=== PATIENT | male | born 1945 | race African-American/Black ===

== ENCOUNTER 2016-12-10 11:01 | Inpatient (IN) | payer OTHER ==
[2016-12-10 11:07] VITALS: BMI 30.2
--- NOTE | 2016-12-10 11:28 | PDOC ---
History of Present Illness - General History Source: Patient Exam Limitations: No Limitations - History of Present Illness Initial Comments: 12/10/16 13:13 The patient is a 71 year old male, with significant past medical history of COPD , asthma, CAD s/p 2 stents, diabetes mellitus, HTN, HLD, and gout who presents to the emergency department today complaining of 2 days of right sided chest pain, shortness of breath, productive cough with white sputum, generalized weakness. and chills. Reports he does not remember what he was doing when the CP started but that it's worse with exertion and he has it at rest. He explains that he came to the hospital to get an Xray, but was so short of breath that he was told to come to the ED. The patient notes that he was supposed to get a cardiac stress test a couple of months ago, but had trouble with his insurance. Denies fever, nausea, vomiting. Denies abdominal pain. Denies leg swelling. No recent travel/sick contact. Allergies: oxycodone Social hx: Electronic cigarette use PCP: Dr. 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: 12/10/16 13:36 <Brandee Taylor - Last Filed: 12/10/16 14:59> <Liz Hernandez - Last Filed: 12/10/16 16:38> - General Chief Complaint: Shortness of Breath Stated Complaint: Shortness of Breath Time Seen by Provider: 12/10/16 11:28 Past History <Brandee Taylor - Last Filed: 12/10/16 14:59> - Past Medical History Anemia: No Asthma: Yes Cancer: No Cardiac Disorders: Yes (cardiac 2 stents) CVA: No COPD: Yes CHF: No Dementia: No Diabetes: Yes GI Disorders: No Disorders: No HTN: Yes Hypercholesterolemia: Yes Liver Disease: No Seizures: No Thyroid Disease: No - Surgical History Abdominal Surgery: Yes (196-glass shard in abd removed and had abd infection afterward) Appendectomy: No Cardiac Surgery: Yes (CARDIAC STENTS 04/2010) Cholecystectomy: No Lung Surgery: No Neurologic Surgery: No Orthopedic Surgery: No - Immunization History Immunization Up to Date: Yes - Suicide/Smoking/Psychosocial Hx Smoking Status: No Smoking History: Former smoker Years of Tobacco Use: 35 Have you smoked in the past 12 months: No Number of Cigarettes Smoked Daily: 0 If you are a former smoker, when did you quit?: 1 Cigars Per Day: 0 Information on smoking cessation initiated: Yes 'Breaking Loose' booklet given: 12/10/16 Hx Alcohol Use: No Drug/Substance Use Hx: No Substance Use Type: None Hx Substance Use Treatment: No <Nassef,Yomna - Last Filed: 12/10/16 16:38> - Past Medical History Allergies/Adverse Reactions: Allergies Allergy/AdvReac Type Severity Reaction Status Date / Time oxycodone AdvReac Intermediate Verified 12/10/16 11:07 Home Medications: Ambulatory Orders Aspirin [ASA -] 81 mg PO DAILY #60 tab.chew 07/19/14 Albuterol 2.5/Ipratropium 0.5 [Duoneb -] 1 neb IH QID PRN #50 vial.neb. Albuterol Sulfate Inhaler - [Ventolin HFA Inhaler -] 2 inh IH Q4H #1 inh Atorvastatin Ca [Lipitor] 40 mg PO HS #30 tablet 07/26/15 Budesonide/Formeterol Fumarate [SYMBICORT 160/4.5mcg -] 2 inh IH BID #1 inhaler 07/26/15 Ranitidine [Zantac -] 150 mg PO DAILY #30 tablet 07/26/15 Glipizide [Glucotrol -] 5 mg PO TIDAC #90 tablet 12/26/15 Metformin HCl [Glucophage -] 1,000 mg PO BID@0700,1630 #60 tablet 12/26/15 Albuterol 0.083% Nebulizer Clare [Ventolin 0.083% Nebulizer Soln -] 1 neb NEB Q4H PRN 02/19/16 Clopidogrel Bisulfate [Plavix -] 75 mg PO DAILY #30 tablet 02/20/16 Metoprolol Succinate [Toprol XL -] 50 mg PO HS 02/20/16 Nifedipine ER [Procardia XL -] 60 mg PO HS 02/20/16 Valsartan [Diovan] 80 mg PO HS 02/20/16 Guaifenesin/D-Methorphan Hb [Diabetic Tussin Dm -] 10 ml PO Q4H PRN #0 ml Sennosides [Senna -] 1 tab PO HS tablet 05/21/16 Tiotropium [place] [Spiriva] 1 puff IH DAILY inh 05/21/16 Review of Systems - Review of Systems Able to Perform ROS?: Yes Comments:: 12/10/16 13:13 GENERAL/CONSTITUTIONAL: No fever +chills. +weakness. HEAD, EYES, EARS, NOSE AND THROAT: No change in vision. No ear pain or discharge. No sore throat. GASTROINTESTINAL: No nausea, vomiting, diarrhea or constipation. GENITOURINARY: No dysuria, frequency, or change in urination. CARDIOVASCULAR: +right sided chest pain, Shortness of breath. RESPIRATORY: +productive cough.No wheezing, or hemoptysis. MUSCULOSKELETAL: No joint or muscle swelling or pain. No neck or back pain. SKIN: No rash NEUROLOGIC: No headache, vertigo, loss of consciousness, or change in strength/ sensation. ENDOCRINE: No increased thirst. No abnormal weight change. HEMATOLOGIC/LYMPHATIC: No anemia, easy bleeding, or history of blood clots. ALLERGIC/IMMUNOLOGIC: No hives or skin allergy. <Brandee Taylor - Last Filed: 12/10/16 14:59> *Physical Exam - Vital Signs Last Vital Signs Temp Pulse Resp BP Pulse Ox 97.7 F 75 19 137/76 98 12/10/16 11:03 12/10/16 11:03 12/10/16 11:03 12/10/16 11:03 12/10/16 11:32 - Physical Exam Comments: 12/10/16 13:13 GENERAL: Awake, alert, and fully oriented, in no acute distress HEAD: No signs of trauma EYES: PERRLA, EOMI, sclera anicteric, conjunctiva clear ENT: Auricles normal inspection, hearing grossly normal, nares patent, oropharynx clear without exudates. Moist mucosa NECK: Normal ROM, supple, no lymphadenopathy, JVD, or masses LUNGS: Breath sounds equal, clear to auscultation bilaterally. mild left sided wheezes, no crackles HEART: Regular rate and rhythm, normal S1 and S2, no murmurs, rubs or gallops ABDOMEN: Soft, nontender, normoactive bowel sounds. No guarding, no rebound. No masses EXTREMITIES: Normal range of motion, no edema. No clubbing or cyanosis. No cords, erythema, or tenderness BACK: No midline spinal tenderness in cervical/thoracic/lumbar region NEUROLOGICAL: Normal speech, cranial nerves intact, negative pronator drift, 5/ 5 strength in all 4 extremities, normal sensation to light touch in all 4 extremities, normal cerebellar exam, normal gait, normal reflexes and tone SKIN: Warm, Dry, normal turgor, no rashes or lesions noted. <Brandee Taylor - Last Filed: 12/10/16 14:59> - Vital Signs Last Vital Signs Temp Pulse Resp BP Pulse Ox 97.7 F 75 19 137/76 98 12/10/16 11:03 12/10/16 11:03 12/10/16 11:03 12/10/16 11:03 12/10/16 11:03 <Liz Hernandez - Last Filed: 12/10/16 16:38> Heart Score/ECG Review - History History: Highly suspicious - Electrocardiogram EKG: Non specific repolarization disturbance - Age Age: >/= 65 - Risk Factors Risk Factors Heart Score: Yes Hx Hypertension, Yes Positive family hx of cardiac disease Based on the list above the patient has:: 1-2 risk factors - Troponin Troponin: </= normal limit - Score Heart Score - Total: 6 #1 12/10/16 13:20 Twelve-lead EKG was performed and reviewed by me. NSR, rate 69, L axis deviation , TWI I, AVL, V4-V6, with sub-mm to 1mm ST depressions in V4-V5. Compared to EKG from 05/17/2016, TWI in V4-V6 and STD in V4-V5 are new. <Liz Hernandez - Last Filed: 12/10/16 16:38> ED Treatment Course - LABORATORY CBC & Chemistry Diagram: 12/10/16 12:05 12/10/16 12:05 - ADDITIONAL ORDERS Additional order review: Laboratory Results 12/10/16 12/10/16 12/10/16 12:05 12:05 12:05 Sodium 135 L Potassium 4.2 Chloride 100 Carbon Dioxide 24 D Anion Gap 11 BUN 12 D Creatinine 1.1 D Creat Clearance w eGFR > 60 Random Glucose 143 H Calcium 8.7 Magnesium 2.1 Total Bilirubin 0.7 AST 22 D ALT 31 D Alkaline Phosphatase 103 Troponin I < 0.02 B-Natriuretic Peptide 165.28 H Total Protein 8.2 Albumin 4.3 D 12/10/16 12:05 RBC 4.73 MCV 88.2 MCHC 33.4 RDW 14.2 MPV 7.7 Neutrophils % 57.7 Lymphocytes % 31.3 Monocytes % 7.5 Eosinophils % 2.7 D Basophils % 0.8 D - Medications Given in the ED: ED Medications Discontinued Medications Generic Name Dose Route Start Last Admin Trade Name Cristian PRN Reason Stop Dose Admin Ipratropium [place] 1 amp 12/10/16 11:53 12/10/16 12:21 Atrovent 0.02% Nebulizer - NEB 12/10/16 11:54 1 amp ONCE ONE Administration <Brandee Taylor - Last Filed: 12/10/16 14:59> - LABORATORY CBC & Chemistry Diagram: 12/10/16 12:05 12/10/16 12:05 <Liz Hernandez - Last Filed: 12/10/16 16:38> Medical Decision Making - Medical Decision Making 12/10/16 13:36 Dr. Rosado was called at the office @ 1:20pm and was connected right away. Dr. Abad was microblogged and called back at 1:21pm. Dr. Ramirez was paged @ 1:21pm. Dr. Rousseau is internet marketing consultant and in house as per legal secretary. She was paged overhead. Dr. Rousseau was paged at the office number at 2:00pm. Dr. Rousseau was called on her cell at 3:00pm and spoke with Dr. Hernandez. <Brandee Taylor - Last Filed: 12/10/16 14:59> - Medical Decision Making 12/10/16 12:27 73-year-old male history of CAD status post stents, COPD, hypertension presents with 2 days of generalized weakness, chest pain, shortness of breath and cough. Vitals are unremarkable. Exam with mild wheezing but otherwise unremarkable. EKG concerning for new T-wave inversions and ST depressions. Presentation concerning for ACS, will also consider COPD, CHF on the differential. -monitor -atrovent (will hold albuterol given EKG changes and very mild wheezing) -labs -CXR (f/u outpt read) -ASA 243 (pt took baby ASA this AM) -call Dr. Rosado 12/10/16 13:30 Labs including trop unremarkable. Pt's heart score is 5. I spoke with Dr. Rosado, will admit pt to Dr. Abad who accepts pt to tele obs. I placed a call to Dr. Ramirez, awaiting a call back. Case discussed in detail with admitting physician Dr. Abad including history, physical exam and ancillary studies. Admitting physician has assumed care for the patient, will follow all pending diagnostics and will complete the evaluation and treatment. 12/10/16 14:[address] Blackwell about the case, she will see the patient. <Liz Hernandez - Last Filed: 12/10/16 16:38> *DC/Admit/Observation/Transfer - Attestations Scribe Attestion: 12/10/16 13:14 Documentation prepared by MURALI Fitzpatrick, acting as medical assistant instructor for Liz Hernandez MD. <Brandee Taylor - Last Filed: 12/10/16 14:59> - Discharge Dispostion Admit: Yes - Attestations Physician Attestion: 12/10/16 13:27 I, Dr. Liz Hernandez MD, attest that this document has been prepared under my direction and personally reviewed by me in its entirety. I further attest, that it accurately reflects all work, treatment, procedures and medical decision -making performed by me. <Liz Hernandez - Last Filed: 12/10/16 16:38> Diagnosis at time of Disposition: Chest pain - Discharge Dispostion Condition at time of disposition: Stable - Referrals
[2016-12-10] MEDS ORDERED: methylPREDNISolone NA SUCC 125 MG/2 ML VIAL IVPB ONE (11:40)
[2016-12-10] MEDS ORDERED: ALBUTEROL SO4 2.5/IPRATROPIUM 0.5 INH SOL 3 ML VIAL.NEB. NEB SCH (11:45)
[2016-12-10] MEDS ORDERED: IPRATROPIUM BR 0.02% 0.5 MG/2.5 ML VIAL.NEB. NEB ONE ×2 (11:53→12:25)
[2016-12-10] MEDS ORDERED: ALBUTEROL SO4 0.083% IH SOL 2.5 MG/3 ML VIAL.NEB. NEB ONE (12:13)
[2016-12-10 12:39] LABS: BASOPHIL 0.8 % (0-2.0); EOSINOPHIL 2.7 % (0-4.5); MCH 29.5 pg (25.7-33.7); MCHC 33.4 g/dl (32.0-35.9); MEAN CELL VOLUME 88.2 fl (80-96); MEAN PLT VOLUME 7.7 fl (7.5-11.1); NEUTROPHILS 57.7 % (42.8-82.8); PLATELET COUNT 314 K/MM3 (134-434); RDW 14.2 % (11.9-15.9); WHITE BLOOD COUNT 9.6 K/mm3 (4.0-10.0)
--- NOTE | 2016-12-10 12:39 | EKG ---
Test Reason : Blood Pressure : / mmHG Vent. Rate : 069 BPM Atrial Rate : 069 BPM P-R Int : 174 ms QRS Dur : 108 ms QT Int : 418 ms P-R-T Axes : -28 -51 124 degrees QTc Int : 447 ms SINUS RHYTHM WITH PREMATURE ATRIAL COMPLEXES LEFT AXIS DEVIATION INCOMPLETE RIGHT BUNDLE BRANCH BLOCK ABNORMAL ECG WHEN COMPARED WITH ECG OF 17-MAY-2016 11:13, PREMATURE ATRIAL COMPLEXES ARE NOW PRESENT T WAVE INVERSION MORE EVIDENT IN LATERAL LEADS Confirmed by GILBERTO ODOM MD ([id number]) on 12/10/2016 12:39:14 PM Referred By: Confirmed By:GILBERTO ODOM MD
[2016-12-10 13:07] LABS: ALBUMIN 4.3 g/dl (3.4-5.0); ALK PHOS 103 U/L (45-117); ANION GAP 11 (8-16); BILIRUBIN,TOTAL 0.7 mg/dL (0.2-1.0); CALCIUM 8.7 mg/dL (8.5-10.1); CO2 24 mmol/L (21-32); CREATININE 1.1 mg/dL (0.7-1.3); GLUCOSE,RANDOM 143 mg/dL (74-106); MAGNESIUM 2.1 mg/dL (1.8-2.4); SGOT/AST 22 U/L (15-37); SGPT/ALT 31 U/L (12-78); TOT PROT 8.2 g/dl (6.4-8.2)
[2016-12-10 13:09] LABS: TROPONIN I < 0.02 ng/ml (0.00-0.05)
[2016-12-10] MEDS ORDERED: ASPIRIN 325 MG TABLET PO ONE (13:14)
[2016-12-10] MEDS ORDERED: ASPIRIN 81 MG CHEWABLE TABLETS ONE (13:49)
[2016-12-10] MEDS ORDERED: guaiFENesin/D-M SUGAR-FREE/ACLHOL-FREE 118 ML BOTTLE PO PRN (15:43)
[2016-12-10] MEDS ORDERED: ONDANSETRON 4 MG/2 ML VIAL IVPB PRN (15:44)
[2016-12-10] MEDS ORDERED: AZITHROMYCIN 250 MG TABLET PO ONE (15:49)
[2016-12-10] MEDS ORDERED: traMADol HCL 50 MG TABLET PO PRN (15:50)
--- NOTE | 2016-12-10 15:50 | HP ---
Admitting History and Physical - Primary Care Physician PCP: Evangelist Rosado - Admission Chief Complaint: I'm weak History of Present Illness: Mr Velez is a 71 year old gentleman who comes in with multiple complaints. I am unable to obtain an accurate history as patient is very hostile towards me during the history. He says he is feeling weak, has off and on fevers and chills , chest pain that feels like a marleni horse off and on for a year, shortness of breath that is worse, swelling in his legs, and back and neck pain. He lists the complaints and when attempting to obtain further details he says "get Ashlee here" and "I've been coming here for years, it's in the computer". History Source: Patient Limitations to Obtaining History: Uncooperative - Past Medical History Cardiovascular: Yes: CAD, Hyperlipdemia, Other (stent) Pulmonary: Yes: COPD Gastrointestinal: Yes: Constipation Musculoskeletal: Yes: Osteoarthritis Rheumatology: Yes: Gout ENT: Yes: Other (S/P parotid surgery) Endocrine: Yes: Diabetes Mellitus - Past Surgical History Past Surgical History: Yes: Stent - Smoking History Smoking history: Former smoker Have you smoked in the past 12 months: No Aproximately how many cigarettes per day: 0 If you are a former smoker, when did you quit?: 1 - Alcohol/Substance Use Hx Alcohol Use: No History of Substance Use: reports: None - Social History ADL: Independent History of Recent Travel: No Home Medications - Allergies Allergies/Adverse Reactions: Allergies Allergy/AdvReac Type Severity Reaction Status Date / Time oxycodone AdvReac Intermediate Verified 12/10/16 11:07 - Home Medications Home Medications: Ambulatory Orders Aspirin [ASA -] 81 mg PO DAILY #60 tab.chew 07/19/14 Albuterol 2.5/Ipratropium 0.5 [Duoneb -] 1 neb IH QID PRN #50 vial.neb. Albuterol Sulfate Inhaler - [Ventolin HFA Inhaler -] 2 inh IH Q4H #1 inh Atorvastatin Ca [Lipitor] 40 mg PO HS #30 tablet 07/26/15 Budesonide/Formeterol Fumarate [SYMBICORT 160/4.5mcg -] 2 inh IH BID #1 inhaler 07/26/15 Ranitidine [Zantac -] 150 mg PO DAILY #30 tablet 07/26/15 Glipizide [Glucotrol -] 5 mg PO TIDAC #90 tablet 12/26/15 Metformin HCl [Glucophage -] 1,000 mg PO BID@0700,1630 #60 tablet 12/26/15 Albuterol 0.083% Nebulizer Clare [Ventolin 0.083% Nebulizer Soln -] 1 neb NEB Q4H PRN 02/19/16 Clopidogrel Bisulfate [Plavix -] 75 mg PO DAILY #30 tablet 02/20/16 Metoprolol Succinate [Toprol XL -] 50 mg PO HS 02/20/16 Nifedipine ER [Procardia XL -] 60 mg PO HS 02/20/16 Valsartan [Diovan] 80 mg PO HS 02/20/16 Guaifenesin/D-Methorphan Hb [Diabetic Tussin Dm -] 10 ml PO Q4H PRN #0 ml Sennosides [Senna -] 1 tab PO HS tablet 05/21/16 Tiotropium [place] [Spiriva] 1 puff IH DAILY inh 05/21/16 Family Disease History - Family Disease History Family Disease History: Diabetes: Mother (Probable gout), Brother, Other: Father (Probable gout), Mother Review of Systems Unable to obtain ROS, reason: attempted, as per HPI Physical Examination Vital Signs: Vital Signs Temperature 36.4 C 12/10/16 14:12 Pulse Rate 62 12/10/16 14:12 Respiratory Rate 19 12/10/16 14:12 Blood Pressure 115/76 12/10/16 14:12 O2 Sat by Pulse Oximetry (%) 95 12/10/16 14:12 Constitutional: Yes: No Distress, Obese, Other (agitated) Eyes: Yes: Conjunctiva Clear, EOM Intact, PERRL HENT: Yes: Atraumatic, Normocephalic Cardiovascular: Yes: Regular Rate and Rhythm. No: Gallop, Murmur, Rub Respiratory: Yes: Regular, On Nasal O2, Wheezes. No: CTA Bilaterally, Rales, Rhonchi Gastrointestinal: Yes: Normal Bowel Sounds, Soft. No: Distention, Tenderness Extremities: Yes: WNL Edema: No Labs: Laboratory Results - last 24 hr 09/12/10/16 12/10/16 12:05 12:05 12:05 WBC 9.6 RBC 4.73 Hgb 13.9 D Hct 41.7 MCV 88.2 MCH 29.5 MCHC 33.4 RDW 14.2 Plt Count 314 MPV 7.7 Neutrophils % 57.7 Lymphocytes % 31.3 Monocytes % 7.5 Eosinophils % 2.7 D Basophils % 0.8 D Sodium 135 L Potassium 4.2 Chloride 100 Carbon Dioxide 24 D Anion Gap 11 BUN 12 D Creatinine 1.1 D Creat Clearance w eGFR > 60 Random Glucose 143 H Calcium 8.7 Magnesium Total Bilirubin 0.7 AST 22 D ALT 31 D Alkaline Phosphatase 103 Troponin I B-Natriuretic Peptide 165.28 H Total Protein 8.2 Albumin 4.3 D 12/10/16 12:05 WBC RBC Hgb Hct MCV MCH MCHC RDW Plt Count MPV Neutrophils % Lymphocytes % Monocytes % Eosinophils % Basophils % Sodium Potassium Chloride Carbon Dioxide Anion Gap BUN Creatinine Creat Clearance w eGFR Random Glucose Calcium Magnesium 2.1 Total Bilirubin AST ALT Alkaline Phosphatase Troponin I < 0.02 B-Natriuretic Peptide Total Protein Albumin Imaging - Results Chest X-ray: Image Reviewed EKG: Image Reviewed Problem List - Problems (1) Chest pain Assessment/Plan: -patient with chronic sporadic chest pain -describes it as a marleni horse, unable to obtain further description -unclear if this is the main complaint -will admit to telemetry observation -check cardiac enzymes x3, 1st set negative -cardiology consult -continue home regimen Code(s): R07.9 - CHEST PAIN, UNSPECIFIED (2) COPD exacerbation Assessment/Plan: -suspect patient has a COPD exacerbation, mild to moderate -will check ABG -place on prednisone -continue spiriva and symbicort -will await cardiac enzymes and cardiology evaluation -if felt not having ACS, start albuterol as well -azithromycin for COPD exacerbation Code(s): J44.1 - CHRONIC OBSTRUCTIVE PULMONARY DISEASE W (ACUTE) EXACERBATION (3) Coronary artery disease Assessment/Plan: -as above -continue home regimen Code(s): I25.10 - ATHSCL HEART DISEASE OF [place] CORONARY ARTERY W/O ANG PCTRS Qualifiers: Coronary Disease-Associated Artery/Lesion type: [place] artery [place] vs. transplanted heart: am[place] heart Associated angina: without angina Qualified Code(s): I25.10 - Atherosclerotic heart disease of [place] coronary artery without angina pectoris (4) Diabetes Assessment/Plan: -will increase with prednisone -continue home regimen -diabetic diet -FSBS and SSI Code(s): E11.9 - TYPE 2 DIABETES MELLITUS WITHOUT COMPLICATIONS Qualifiers: Diabetes mellitus type: type 2 Diabetes mellitus complication status: without complication Diabetes mellitus longterm insulin use: without longterm use Qualified Code(s): E11.9 - Type 2 diabetes mellitus without complications (5) Hyperlipidemia Assessment/Plan: -continue statin Code(s): E78.5 - HYPERLIPIDEMIA, UNSPECIFIED Qualifiers: Hyperlipidemia type: pure hypercholesterolemia (6) Hypertension Assessment/Plan: -continue diovan, toprol xl, and nifedipine Code(s): I10 - ESSENTIAL (PRIMARY) HYPERTENSION Qualifiers: Hypertension type: essential hypertension Qualified Code(s): I10 - Essential (primary) hypertension
--- NOTE | 2016-12-10 16:41 | CON.CARD ---
Cardiology Consult (text) - Consultation Consultation Note: CC: cp/sob 71 yo with h/o CAD s/p ANUM mid [id number] with residual d1/om1 disease, HTN, hyperlipidemia, COPD, Type 2 DM, parotid neoplasm s/p resection, posterior neck lipoma, c-spine stenosis, gout and DJD who presents with sob/weakness. patient states he is here because he needs to be hospitalized every 6 months to get take care of his breathing which will improve his weakness. He states he has not had any new sx's recently. has chronic ortiz associated with weakness when he has particular trouble breathing --> had episode yesterday. still feels sob and bilateral LE weakness. + chronic cough. denies orthopnea, PND or LE edema, palps, dizziness. denies fevers, chills, sweats, n/v/d, congestion, rashes, visual disturbances. pmhx/pshx: per hpi family hx: no cardiac history. social hx: former tobacco, still uses e-cigarettes, no etoh or illicits. ros: per hpi Ambulatory Orders Aspirin [ASA -] 81 mg PO DAILY #60 tab.chew 07/19/14 Albuterol 2.5/Ipratropium 0.5 [Duoneb -] 1 neb IH QID PRN #50 vial.neb. Albuterol Sulfate Inhaler - [Ventolin HFA Inhaler -] 2 inh IH Q4H #1 inh Atorvastatin Ca [Lipitor] 40 mg PO HS #30 tablet 07/26/15 Budesonide/Formeterol Fumarate [SYMBICORT 160/4.5mcg -] 2 inh IH BID #1 inhaler 07/26/15 Ranitidine [Zantac -] 150 mg PO DAILY #30 tablet 07/26/15 Glipizide [Glucotrol -] 5 mg PO TIDAC #90 tablet 12/26/15 Metformin HCl [Glucophage -] 1,000 mg PO BID@0700,1630 #60 tablet 12/26/15 Albuterol 0.083% Nebulizer Clare [Ventolin 0.083% Nebulizer Soln -] 1 neb NEB Q4H PRN 02/19/16 Clopidogrel Bisulfate [Plavix -] 75 mg PO DAILY #30 tablet 02/20/16 Metoprolol Succinate [Toprol XL -] 50 mg PO HS 02/20/16 Nifedipine ER [Procardia XL -] 60 mg PO HS 02/20/16 Valsartan [Diovan] 80 mg PO HS 02/20/16 Guaifenesin/D-Methorphan Hb [Diabetic Tussin Dm -] 10 ml PO Q4H PRN #0 ml Sennosides [Senna -] 1 tab PO HS tablet 05/21/16 Tiotropium [place] [Spiriva] 1 puff IH DAILY inh 05/21/16 Current Medications Acetaminophen (Tylenol -) 650 mg PO Q4H PRN PRN Reason: FEVER OR PAIN Aclidinium [place] (Tudorza -) 1 puff IH BID [facility] Aspirin (Asa -) 81 mg PO DAILY [facility] Atorvastatin Calcium (Lipitor -) 40 mg PO HS [facility] Azithromycin (Zithromax -) 250 mg PO DAILY [facility] Budesonide/Formoterol Fumarate (Symbicort 160/4.5mcg -) 2 puff IH BID [facility] Clopidogrel Bisulfate (Plavix -) 75 mg PO DAILY [facility] Glipizide (Glucotrol -) 5 mg PO TIDAC [facility] Guaifenesin (Diabetic Tussin Dm -) 10 ml PO Q4H PRN PRN Reason: COUGH Insulin Aspart (Novolog Vial Sliding Scale -) 0 vial SQ ACHS [facility] PRN Reason: Protocol Lactobacillus Acidophilus (Bacid -) 1 tab PO DAILY [facility] Metformin HCl (Glucophage -) 1,000 mg PO BID@0700,1630 [facility] Metoprolol Succinate (Toprol Xl -) 50 mg PO HS [facility] Nifedipine (Procardia Xl -) 60 mg PO HS [facility] Ondansetron HCl (Zofran Injection) 4 mg IVPB Q6H PRN PRN Reason: NAUSEA Prednisone (Deltasone -) 60 mg PO DAILY [facility] Ranitidine HCl (Zantac -) 150 mg PO DAILY [facility] Senna (Senna -) 1 tab PO HS [facility] Tramadol HCl (Ultram -) 50 mg PO Q8H PRN PRN Reason: PAIN Valsartan (Diovan -) 80 mg PO HS [facility] Vital Signs - 24 hr 12/10/16 12/10/16 12/10/16 11:03 11:22 11:32 Temperature 97.7 F Pulse Rate 75 Pulse Rate [ Left Radial] Respiratory 19 Rate Blood Pressure 137/76 Blood Pressure [Right Arm] O2 Sat by Pulse 98 98 98 Oximetry (%) 12/10/16 14:12 Temperature 97.6 F Pulse Rate Pulse Rate [ 62 Left Radial] Respiratory 19 Rate Blood Pressure Blood Pressure 115/76 [Right Arm] O2 Sat by Pulse 95 Oximetry (%) Intake & Output 12/08/16 12/09/16 12/10/16 12/11/16 07:59 07:59 07:59 07:59 Weight 236 lb nad, calm mild dyspnea diffuse wheezes, nl effort rrr nl s1, s2 2/6 murmur at sternal border + bs soft nt nd ext without e/c/c + dp/pt aaox3 no carotid bruits no jaundice, diaphoresis CBC, BMP 12/10/16 12:05 12/10/16 12:05 Laboratory Tests 05/17/16 12/10/16 12/10/16 12:00 12:05 12:05 Magnesium Total Bilirubin 0.7 AST 22 D ALT 31 D Alkaline Phosphatase 103 B-Natriuretic Peptide 188.54 H 165.28 H Troponin I Albumin 4.3 D 12/10/16 12:05 Magnesium 2.1 Total Bilirubin AST ALT Alkaline Phosphatase B-Natriuretic Peptide Troponin I < 0.02 Albumin ekg: sr with pac's. lad, anterolateral and lateral twi. lateral twi new. tele: sr pac's cxr: pending echo 2016: nl lv/rv. 1+ ar/mr. rvsp 40-50. 1+ ao dilation. 71 yo with h/o CAD s/p ANUM mid [id number] with residual d1/om1 disease, HTN, hyperlipidemia, COPD, Type 2 DM, parotid neoplasm s/p resection, posterior neck lipoma, c-spine stenosis, gout and DJD who presents with sob/weakness. cad/sob - first set of ce's negative. new twi in lateral leads. cont anisa - patient with h/o residual disease on cath. adenosine stress test once wheezing improved, vs. dobutamine stress. repeat echo. - mgm't of contribution from copd per pmd - con't asa, plavix, statin, ccb, bb, acei - no sig signs of volume overload. bnp without sig change from priors. htn - con't current regimen hl - con't statin + e-cig - cessation counseling
[2016-12-10] MEDS: INSULIN SLIDING SCALE (NOVOLOG) 1 VIAL SQ SCH ×2 (17:27→21:06)
[2016-12-10] MEDS: glipiZIDE 5 MG TABLET (FP) PO SCH (17:27)
[2016-12-10] MEDS: metFORMIN HCL 500 MG TABLET (FP) PO SCH (17:27)
[2016-12-10 21:01] LABS: CPK 185 IU/L (39-308); TROPONIN I < 0.02 ng/ml (0.00-0.05)
[2016-12-10] MEDS: ATORVASTATIN CA 40 MG TABLET (FP) PO SCH (21:05)
[2016-12-10] MEDS: VALSARTAN 80 MG TABLET (UD) PO SCH (21:05)
[2016-12-10] MEDS: SENNOSIDES 8.6MG TABLET (FP) PO SCH (21:05)
[2016-12-10] MEDS: NIFEdipine E.R 60 MG TABLET (UD) PO SCH (21:05)
[2016-12-10] MEDS: METOPROLOL SUCCINATE 50 MG TAB.SR.24H (FP) PO SCH (21:06)
[2016-12-10] MEDS: BUDESONIDE/FORMETEROL FUMARATE 160/4.5 mcg INHALER IH SCH (21:09)
[2016-12-11] MEDS: ACETAMINOPHEN 325 MG TABLET (FP) PO PRN ×2 (03:58→16:50)
[2016-12-11] MEDS: metFORMIN HCL 500 MG TABLET (FP) PO SCH ×2 (06:34→16:51)
[2016-12-11] MEDS: glipiZIDE 5 MG TABLET (FP) PO SCH ×3 (06:34→16:52)
[2016-12-11] MEDS: INSULIN SLIDING SCALE (NOVOLOG) 1 VIAL SQ SCH ×4 (06:34→22:04)
[2016-12-11 07:57] LABS: BASOPHIL 0.9 % (0-2.0); EOSINOPHIL 4.5 % (0-4.5); MCH 29.7 pg (25.7-33.7); MCHC 33.8 g/dl (32.0-35.9); MEAN CELL VOLUME 87.9 fl (80-96); MEAN PLT VOLUME 7.9 fl (7.5-11.1); NEUTROPHILS 51.8 % (42.8-82.8); PLATELET COUNT 284 K/MM3 (134-434); RDW 13.9 % (11.9-15.9)
[2016-12-11 08:27] LABS: ANION GAP 10 (8-16); CALCIUM 8.8 mg/dL (8.5-10.1); CO2 27 mmol/L (21-32); GLUCOSE,RANDOM 155 mg/dL (74-106); MAGNESIUM 1.8 mg/dL (1.8-2.4); PHOSPHOROUS 4.3 mg/dL (2.5-4.9)
[2016-12-11 08:30] LABS: CPK 147 IU/L (39-308); TROPONIN I < 0.02 ng/ml (0.00-0.05)
[2016-12-11] MEDS: ASPIRIN 81 MG CHEWABLE TABLETS PO SCH (09:20)
[2016-12-11] MEDS: CLOPIDOGREL BISULFATE 75 MG TABLET (FP) PO SCH (09:20)
[2016-12-11] MEDS: LACTOBACILLUS ACIDOPHILUS 1 EACH TAB (FP) PO SCH (09:20)
[2016-12-11] MEDS: predniSONE 20 MG TABLET (UD) PO SCH (09:20)
[2016-12-11] MEDS: ACLIDINIUM BROMIDE 400 MCG/INH AERO.POWD IH SCH ×2 (09:22→22:03)
[2016-12-11] MEDS: BUDESONIDE/FORMETEROL FUMARATE 160/4.5 mcg INHALER IH SCH ×2 (09:22→22:03)
[2016-12-11] MEDS: RANITIDINE HCL 150 MG TABLET (FP) PO SCH (09:23)
[2016-12-11] MEDS: AZITHROMYCIN 250 MG TABLET PO SCH (09:23)
[2016-12-11] MEDS ORDERED: ENOXAPARIN NA (PORCINE) 40 MG/0.4 ML DISP.SYRIN SQ SCH (10:00)
--- NOTE | 2016-12-11 11:47 | PN ---
Progress Note, Physician History of Present Illness: No events overnight breathing improving - Current Medication List Current Medications: Active Medications Acetaminophen (Tylenol -) 650 mg PO Q4H PRN PRN Reason: FEVER OR PAIN Last Admin: 12/11/16 03:58 Dose: 650 mg Aclidinium [place] (Tudorza -) 1 puff IH BID [facility] Last Admin: 12/11/16 09:22 Dose: 1 puff Aspirin (Asa -) 81 mg PO DAILY [facility] Last Admin: 12/11/16 09:20 Dose: 81 mg Atorvastatin Calcium (Lipitor -) 40 mg PO HS [facility] Last Admin: 12/10/16 21:05 Dose: 40 mg Azithromycin (Zithromax -) 250 mg PO DAILY [facility] Last Admin: 12/11/16 09:23 Dose: 250 mg Budesonide/Formoterol Fumarate (Symbicort 160/4.5mcg -) 2 puff IH BID [facility] Last Admin: 12/11/16 09:22 Dose: 2 puff Clopidogrel Bisulfate (Plavix -) 75 mg PO DAILY [facility] Last Admin: 12/11/16 09:20 Dose: 75 mg Glipizide (Glucotrol -) 5 mg PO TIDAC [facility] Last Admin: 12/11/16 06:34 Dose: 5 mg Guaifenesin (Diabetic Tussin Dm -) 10 ml PO Q4H PRN PRN Reason: COUGH Insulin Aspart (Novolog Vial Sliding Scale -) 0 vial SQ ACHS [facility] PRN Reason: Protocol Last Admin: 12/11/16 06:34 Dose: Not Given Lactobacillus Acidophilus (Bacid -) 1 tab PO DAILY [facility] Last Admin: 12/11/16 09:20 Dose: 1 tab Metformin HCl (Glucophage -) 1,000 mg PO BID@0700,1630 [facility] Last Admin: 12/11/16 06:34 Dose: 1,000 mg Metoprolol Succinate (Toprol Xl -) 50 mg PO HS [facility] Last Admin: 12/10/16 21:06 Dose: 50 mg Nifedipine (Procardia Xl -) 60 mg PO HS [facility] Last Admin: 12/10/16 21:05 Dose: 60 mg Ondansetron HCl (Zofran Injection) 4 mg IVPB Q6H PRN PRN Reason: NAUSEA Prednisone (Deltasone -) 60 mg PO DAILY [facility] Last Admin: 12/11/16 09:20 Dose: 60 mg Ranitidine HCl (Zantac -) 150 mg PO DAILY [facility] Last Admin: 12/11/16 09:23 Dose: 150 mg Senna (Senna -) 1 tab PO [facility] Last Admin: 12/10/16 21:05 Dose: 1 tab Tramadol HCl (Ultram -) 50 mg PO Q8H PRN PRN Reason: PAIN Valsartan (Diovan -) 80 mg PO [facility] Last Admin: 12/10/16 21:05 Dose: 80 mg - Objective Vital Signs: Vital Signs Temperature 98 F 12/10/16 15:44 Pulse Rate 64 12/11/16 07:45 Respiratory Rate 20 12/11/16 07:45 Blood Pressure 112/79 12/11/16 07:45 O2 Sat by Pulse Oximetry (%) 100 12/10/16 22:00 Constitutional: Yes: No Distress, Calm Eyes: Yes: Conjunctiva Clear HENT: Yes: WNL Neck: Yes: WNL Cardiovascular: Yes: WNL Respiratory: Yes: WNL, Regular Gastrointestinal: Yes: Normal Bowel Sounds Extremities: Yes: WNL Edema: No Labs: CBC, BMP 12/11/16 05:30 12/11/16 05:30 Assessment/Plan 71 yo with h/o CAD s/p ANUM mid [id number] with residual d1/om1 disease, HTN, hyperlipidemia, COPD, Type 2 DM, parotid neoplasm s/p resection, posterior neck lipoma, c-spine stenosis, gout and DJD who presents with sob/weakness. cad/sob - Cardiac enzymes negative x 2. new twi in lateral leads. - patient with h/o residual disease on cath. - Awaiting adenosine stress test once wheezing improved, vs. dobutamine stress. repeat echo. - mgm't of contribution from copd per pmd - con't asa, plavix, statin, ccb, bb, acei - no sig signs of volume overload. bnp without sig change from priors. htn - con't current regimen hl - con't statin
[2016-12-11] MEDS ORDERED: INSULIN (NOVOLOG) ASPART 100 UNITS/ML 10ML VIAL ONE (16:58)
--- NOTE | 2016-12-11 16:58 | PN ---
Progress Note, Physician History of Present Illness: pt states he thinks his copd is acting up chest pain is on R side on and off, more when he turns - Current Medication List Current Medications: Active Medications Acetaminophen (Tylenol -) 650 mg PO Q4H PRN PRN Reason: FEVER OR PAIN Last Admin: 12/11/16 16:50 Dose: 650 mg Aclidinium [place] (Tudorza -) 1 puff IH BID [facility] Last Admin: 12/11/16 09:22 Dose: 1 puff Aspirin (Asa -) 81 mg PO DAILY [facility] Last Admin: 12/11/16 09:20 Dose: 81 mg Atorvastatin Calcium (Lipitor -) 40 mg PO HS [facility] Last Admin: 12/10/16 21:05 Dose: 40 mg Azithromycin (Zithromax -) 250 mg PO DAILY [facility] Last Admin: 12/11/16 09:23 Dose: 250 mg Budesonide/Formoterol Fumarate (Symbicort 160/4.5mcg -) 2 puff IH BID [facility] Last Admin: 12/11/16 09:22 Dose: 2 puff Clopidogrel Bisulfate (Plavix -) 75 mg PO DAILY [facility] Last Admin: 12/11/16 09:20 Dose: 75 mg Glipizide (Glucotrol -) 5 mg PO TIDAC [facility] Last Admin: 12/11/16 16:52 Dose: 5 mg Guaifenesin (Diabetic Tussin Dm -) 10 ml PO Q4H PRN PRN Reason: COUGH Insulin Aspart (Novolog Vial Sliding Scale -) 0 vial SQ ACHS [facility] PRN Reason: Protocol Last Admin: 12/11/16 11:58 Dose: Not Given Lactobacillus Acidophilus (Bacid -) 1 tab PO DAILY [facility] Last Admin: 12/11/16 09:20 Dose: 1 tab Metformin HCl (Glucophage -) 1,000 mg PO BID@0700,1630 [facility] Last Admin: 12/11/16 16:51 Dose: 1,000 mg Metoprolol Succinate (Toprol Xl -) 50 mg PO [facility] Last Admin: 12/10/16 21:06 Dose: 50 mg Nifedipine (Procardia Xl -) 60 mg PO HS [facility] Last Admin: 12/10/16 21:05 Dose: 60 mg Ondansetron HCl (Zofran Injection) 4 mg IVPB Q6H PRN PRN Reason: NAUSEA Prednisone (Deltasone -) 60 mg PO DAILY [facility] Last Admin: 12/11/16 09:20 Dose: 60 mg Ranitidine HCl (Zantac -) 150 mg PO DAILY [facility] Last Admin: 12/11/16 09:23 Dose: 150 mg Senna (Senna -) 1 tab PO [facility] Last Admin: 12/10/16 21:05 Dose: 1 tab Tramadol HCl (Ultram -) 50 mg PO Q8H PRN PRN Reason: PAIN Valsartan (Diovan -) 80 mg PO [facility] Last Admin: 12/10/16 21:05 Dose: 80 mg - Objective Vital Signs: Vital Signs Temperature 97.8 F 12/11/16 14:00 Pulse Rate 60 12/11/16 14:00 Respiratory Rate 18 12/11/16 14:00 Blood Pressure 116/65 12/11/16 14:00 O2 Sat by Pulse Oximetry (%) 98 12/11/16 10:00 Constitutional: Yes: No Distress HENT: Yes: Atraumatic Neck: Yes: Supple Cardiovascular: Yes: Regular Rate and Rhythm Respiratory: Yes: Rhonchi, Wheezes Gastrointestinal: Yes: Normal Bowel Sounds Extremities: Yes: WNL Neurological: Yes: Alert, Oriented Labs: CBC, BMP 12/11/16 05:30 12/11/16 05:30 Problem List - Problems (1) Chest pain Assessment/Plan: troponins negative atypical chest pain Code(s): R07.9 - CHEST PAIN, UNSPECIFIED (2) COPD exacerbation Assessment/Plan: duo nebs pulmonary consult on po steroids Code(s): J44.1 - CHRONIC OBSTRUCTIVE PULMONARY DISEASE W (ACUTE) EXACERBATION (3) Coronary artery disease Assessment/Plan: on meds stable Code(s): I25.10 - ATHSCL HEART DISEASE OF [place] CORONARY ARTERY W/O ANG PCTRS Qualifiers: Coronary Disease-Associated Artery/Lesion type: [place] artery [place] vs. transplanted heart: [place] heart Associated angina: without angina Qualified Code(s): I25.10 - Atherosclerotic heart disease of [place] coronary artery without angina pectoris (4) Diabetes Assessment/Plan: insulin bgms po meds Code(s): E11.9 - TYPE 2 DIABETES MELLITUS WITHOUT COMPLICATIONS Qualifiers: Diabetes mellitus type: type 2 Diabetes mellitus complication status: without complication Diabetes mellitus mcfp insulin use: without mcfp use Qualified Code(s): E11.9 - Type 2 diabetes mellitus without complications (5) Hyperlipidemia Assessment/Plan: on lipitor Code(s): E78.5 - HYPERLIPIDEMIA, UNSPECIFIED Qualifiers: Hyperlipidemia type: pure hypercholesterolemia (6) Hypertension Assessment/Plan: on meds stable Code(s): I10 - ESSENTIAL (PRIMARY) HYPERTENSION Qualifiers: Hypertension type: essential hypertension Qualified Code(s): I10 - Essential (primary) hypertension (7) Status post coronary artery stent placement Code(s): Z95.5 - PRESENCE OF CORONARY ANGIOPLASTY IMPLANT AND GRAFT Assessment/Plan covering for dr mistry
[2016-12-11] MEDS ORDERED: ALBUTEROL SO4 2.5/IPRATROPIUM 0.5 INH SOL 3 ML VIAL.NEB. NEB PRN (16:59)
[2016-12-11] MEDS ORDERED: INSULIN (NOVOLOG MIX 70/30) 100 UNITS/ML MDV SQ ONE (17:00)
[2016-12-11] MEDS: ALBUTEROL SO4 0.083% IH SOL 2.5 MG/3 ML VIAL.NEB. NEB PRN (18:16)
[2016-12-11] MEDS: ATORVASTATIN CA 40 MG TABLET (FP) PO SCH (22:03)
[2016-12-11] MEDS: NIFEdipine E.R 60 MG TABLET (UD) PO SCH (22:03)
[2016-12-11] MEDS: METOPROLOL SUCCINATE 50 MG TAB.SR.24H (FP) PO SCH (22:03)
[2016-12-11] MEDS: VALSARTAN 80 MG TABLET (UD) PO SCH (22:03)
[2016-12-11] MEDS: SENNOSIDES 8.6MG TABLET (FP) PO SCH (22:04)
[2016-12-12] MEDS: INSULIN SLIDING SCALE (NOVOLOG) 1 VIAL SQ SCH ×4 (06:33→22:18)
[2016-12-12] MEDS: glipiZIDE 5 MG TABLET (FP) PO SCH ×3 (06:33→17:35)
[2016-12-12] MEDS: metFORMIN HCL 500 MG TABLET (FP) PO SCH ×2 (06:33→17:35)
[2016-12-12] MEDS: LACTOBACILLUS ACIDOPHILUS 1 EACH TAB (FP) PO SCH (09:47)
[2016-12-12] MEDS: ASPIRIN 81 MG CHEWABLE TABLETS PO SCH (09:47)
[2016-12-12] MEDS: predniSONE 20 MG TABLET (UD) PO SCH (09:47)
[2016-12-12] MEDS: CLOPIDOGREL BISULFATE 75 MG TABLET (FP) PO SCH (09:48)
[2016-12-12] MEDS: AZITHROMYCIN 250 MG TABLET PO SCH (09:48)
[2016-12-12] MEDS: RANITIDINE HCL 150 MG TABLET (FP) PO SCH (09:48)
[2016-12-12] MEDS: BUDESONIDE/FORMETEROL FUMARATE 160/4.5 mcg INHALER IH SCH ×2 (09:49→21:46)
[2016-12-12] MEDS: ACLIDINIUM BROMIDE 400 MCG/INH AERO.POWD IH SCH ×2 (09:49→21:46)
--- NOTE | 2016-12-12 13:38 | PN ---
Progress Note, Physician History of Present Illness: feeling better - Current Medication List Current Medications: Active Medications Acetaminophen (Tylenol -) 650 mg PO Q4H PRN PRN Reason: FEVER OR PAIN Last Admin: 12/11/16 16:50 Dose: 650 mg Aclidinium [place] (Tudorza -) 1 puff IH BID [facility] Last Admin: 12/12/16 09:49 Dose: 1 puff Albuterol Sulfate (Ventolin 0.083% Nebulizer Soln -) 1 amp NEB Q4H PRN PRN Reason: SHORTNESS OF BREATH Last Admin: 12/11/16 18:16 Dose: 1 amp Aspirin (Asa -) 81 mg PO DAILY [facility] Last Admin: 12/12/16 09:47 Dose: 81 mg Atorvastatin Calcium (Lipitor -) 40 mg PO HS [facility] Last Admin: 12/11/16 22:03 Dose: 40 mg Azithromycin (Zithromax -) 250 mg PO DAILY [facility] Last Admin: 12/12/16 09:48 Dose: 250 mg Budesonide/Formoterol Fumarate (Symbicort 160/4.5mcg -) 2 puff IH BID [facility] Last Admin: 12/12/16 09:49 Dose: 2 puff Clopidogrel Bisulfate (Plavix -) 75 mg PO DAILY [facility] Last Admin: 12/12/16 09:48 Dose: 75 mg Glipizide (Glucotrol -) 5 mg PO TIDAC [facility] Last Admin: 12/12/16 12:12 Dose: 5 mg Guaifenesin (Diabetic Tussin Dm -) 10 ml PO Q4H PRN PRN Reason: COUGH Insulin Aspart (Novolog Vial Sliding Scale -) 0 vial SQ ACHS [facility] PRN Reason: Protocol Last Admin: 12/12/16 12:11 Dose: Not Given Lactobacillus Acidophilus (Bacid -) 1 tab PO DAILY [facility] Last Admin: 12/12/16 09:47 Dose: 1 tab Metformin HCl (Glucophage -) 1,000 mg PO BID@0700,1630 [facility] Last Admin: 12/12/16 06:33 Dose: 1,000 mg Metoprolol Succinate (Toprol Xl -) 50 mg PO HS [facility] Last Admin: 12/11/16 22:03 Dose: 50 mg Nifedipine (Procardia Xl -) 60 mg PO HS [facility] Last Admin: 12/11/16 22:03 Dose: 60 mg Ondansetron HCl (Zofran Injection) 4 mg IVPB Q6H PRN PRN Reason: NAUSEA Prednisone (Deltasone -) 60 mg PO DAILY [facility] Last Admin: 12/12/16 09:47 Dose: 60 mg Ranitidine HCl (Zantac -) 150 mg PO DAILY [facility] Last Admin: 12/12/16 09:48 Dose: 150 mg Senna (Senna -) 1 tab PO HS [facility] Last Admin: 12/11/16 22:04 Dose: 1 tab Tramadol HCl (Ultram -) 50 mg PO Q8H PRN PRN Reason: PAIN Valsartan (Diovan -) 80 mg PO [facility] Last Admin: 12/11/16 22:03 Dose: 80 mg - Objective Vital Signs: Vital Signs Temperature 98.3 F 12/12/16 06:00 Pulse Rate 80 12/12/16 06:00 Respiratory Rate 20 12/12/16 06:00 Blood Pressure 141/78 12/12/16 06:00 O2 Sat by Pulse Oximetry (%) 98 12/12/16 02:00 Constitutional: Yes: No Distress HENT: Yes: Atraumatic Neck: Yes: Supple Cardiovascular: Yes: Regular Rate and Rhythm Respiratory: Yes: Rhonchi, Wheezes Gastrointestinal: Yes: Normal Bowel Sounds Extremities: Yes: WNL Neurological: Yes: Alert, Oriented Labs: CBC, BMP 12/11/16 05:30 12/11/16 05:30 Problem List - Problems (1) Chest pain Assessment/Plan: troponins negative atypical chest pain Code(s): R07.9 - CHEST PAIN, UNSPECIFIED (2) COPD exacerbation Assessment/Plan: duo larry pulmonary consult on po steroids Code(s): J44.1 - CHRONIC OBSTRUCTIVE PULMONARY DISEASE W (ACUTE) EXACERBATION (3) Coronary artery disease Assessment/Plan: on meds stable Code(s): I25.10 - ATHSCL HEART DISEASE OF [place] CORONARY ARTERY W/O ANG PCTRS Qualifiers: Coronary Disease-Associated Artery/Lesion type: [place] artery [place] vs. 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 control representative insulin use: without retirement use Qualified Code(s): E11.9 - Type 2 diabetes mellitus without complications; E11.9 - Type 2 diabetes mellitus without complications; E11.9 - Type 2 diabetes mellitus without complications; E11.9 - Type 2 diabetes mellitus without complications (5) Hyperlipidemia Assessment/Plan: on lipitor Code(s): E78.5 - HYPERLIPIDEMIA, UNSPECIFIED Qualifiers: Hyperlipidemia type: pure hypercholesterolemia (6) Hypertension Assessment/Plan: on meds stable Code(s): I10 - ESSENTIAL (PRIMARY) HYPERTENSION Qualifiers: Hypertension type: essential hypertension Qualified Code(s): I10 - Essential (primary) hypertension; I10 - Essential (primary) hypertension; I10 - Essential (primary) hypertension (7) Status post coronary artery stent placement Code(s): Z95.5 - PRESENCE OF CORONARY ANGIOPLASTY IMPLANT AND GRAFT Assessment/Plan covering for dr mistry
[2016-12-12] MEDS ORDERED: methylPREDNISolone NA SUCC 125 MG/2 ML VIAL IVPUSH SCH (15:30)
--- NOTE | 2016-12-12 15:55 | PN ---
Progress Note (short form) - Note Progress Note: CC: cp/sob S: sob persists. no cp, palps, dizziness. cards: luz Current Medications Acetaminophen (Tylenol -) 650 mg PO Q4H PRN PRN Reason: FEVER OR PAIN Last Admin: 12/11/16 16:50 Dose: 650 mg Aclidinium [place] (Tudorza -) 1 puff IH BID [facility] Last Admin: 12/12/16 09:49 Dose: 1 puff Albuterol Sulfate (Ventolin 0.083% Nebulizer Soln -) 1 amp NEB Q4H PRN PRN Reason: SHORTNESS OF BREATH Last Admin: 12/11/16 18:16 Dose: 1 amp Aspirin (Asa -) 81 mg PO DAILY [facility] Last Admin: 12/12/16 09:47 Dose: 81 mg Atorvastatin Calcium (Lipitor -) 40 mg PO HS [facility] Last Admin: 12/11/16 22:03 Dose: 40 mg Azithromycin (Zithromax -) 250 mg PO DAILY [facility] Last Admin: 12/12/16 09:48 Dose: 250 mg Budesonide/Formoterol Fumarate (Symbicort 160/4.5mcg -) 2 puff IH BID [facility] Last Admin: 12/12/16 09:49 Dose: 2 puff Clopidogrel Bisulfate (Plavix -) 75 mg PO DAILY [facility] Last Admin: 12/12/16 09:48 Dose: 75 mg Glipizide (Glucotrol -) 5 mg PO TIDAC [facility] Last Admin: 12/12/16 12:12 Dose: 5 mg Guaifenesin (Diabetic Tussin Dm -) 10 ml PO Q4H PRN PRN Reason: COUGH Insulin Aspart (Novolog Vial Sliding Scale -) 0 vial SQ ACHS [facility] PRN Reason: Protocol Last Admin: 12/12/16 12:11 Dose: Not Given Lactobacillus Acidophilus (Bacid -) 1 tab PO DAILY [facility] Last Admin: 12/12/16 09:47 Dose: 1 tab Metformin HCl (Glucophage -) 1,000 mg PO BID@0700,1630 [facility] Last Admin: 12/12/16 06:33 Dose: 1,000 mg Methylprednisolone Sodium Succinate (Solu-Medrol -) 60 mg IVPUSH DAILY [facility] Metoprolol Succinate (Toprol Xl -) 50 mg PO HS [facility] Last Admin: 12/11/16 22:03 Dose: 50 mg Nifedipine (Procardia Xl -) 60 mg PO [facility] Last Admin: 12/11/16 22:03 Dose: 60 mg Ondansetron HCl (Zofran Injection) 4 mg IVPB Q6H PRN PRN Reason: NAUSEA Ranitidine HCl (Zantac -) 150 mg PO DAILY [facility] Last Admin: 12/12/16 09:48 Dose: 150 mg Senna (Senna -) 1 tab PO [facility] Last Admin: 12/11/16 22:04 Dose: 1 tab Tramadol HCl (Ultram -) 50 mg PO Q8H PRN PRN Reason: PAIN Valsartan (Diovan -) 80 mg PO [facility] Last Admin: 12/11/16 22:03 Dose: 80 mg Vital Signs - 24 hr 12/11/16 12/11/16 12/12/16 17:00 22:00 02:00 Temperature 98.0 F 98 F Pulse Rate 78 87 Respiratory 20 20 Rate Blood Pressure 139/87 132/97 O2 Sat by Pulse 98 Oximetry (%) 12/12/16 12/12/16 12/12/16 02:07 06:00 10:00 Temperature 97.7 F 98.3 F 97.9 F Pulse Rate 87 80 83 Respiratory 20 20 18 Rate Blood Pressure 144/77 141/78 147/88 O2 Sat by Pulse 97 Oximetry (%) 12/12/16 14:40 Temperature 97.8 F Pulse Rate 74 Respiratory 18 Rate Blood Pressure 127/71 O2 Sat by Pulse Oximetry (%) Intake & Output 12/10/16 12/11/16 12/12/16 12/13/16 07:59 07:59 07:59 07:59 Intake Total 310 650 Output Total 2100 1200 900 Balance -2100 -890 -250 Weight 236 lb nad, calm diffuse wheezes, nl effort rrr nl s1, s2 2/6 murmur at sternal border + bs soft nt nd ext without e/c/c + dp/pt aaox3 no carotid bruits no jaundice, diaphoresis no CBC, BMP ekg: sr with pac's. lad, anterolateral and lateral twi. lateral twi new. tele: sr pvc's cxr: report pending. by my review, increased interstitial markings but not definitively 2/2 congestion. rt costophrenic angle somewhat obscured. echo 2016: nl lv/rv. 1+ ar/mr. rvsp 40-50. 1+ ao dilation. 71 yo with h/o CAD s/p ANUM mid [id number] with residual d1/om1 disease, HTN, hyperlipidemia, COPD, Type 2 DM, parotid neoplasm s/p resection, posterior neck lipoma, c-spine stenosis, gout and DJD who presents with sob/weakness. cad s/p ANUM mid [id number] with residual d1/om1 disease/sob - trop negative x 3. new twi in lateral leads. - patient with h/o residual disease on cath. - Awaiting adenosine stress test once wheezing improved, vs. dobutamine stress. repeat echo tuesday. - mgm't of contribution from copd per pmd. pulm c/s pending. - con't asa, plavix (has been tolerating dapt as outpatient), statin, ccb, bb, acei - no overt signs of volume overload. bnp without sig change from priors. cxr report pending, by my review, no obvious congestion, but can't rule out. daily weights, I/O's. monitor direction of sodium. htn - con't current regimen hl - con't statin + e-cig - cessation counseling
[2016-12-12] MEDS: ACETAMINOPHEN 325 MG TABLET (FP) PO PRN (20:05)
[2016-12-12] MEDS ORDERED: POLYETHYLENE GLYCOL 3350 119 GM BTL PO ONE (20:30)
[2016-12-12] MEDS: VALSARTAN 80 MG TABLET (UD) PO SCH (21:46)
[2016-12-12] MEDS: NIFEdipine E.R 60 MG TABLET (UD) PO SCH (21:46)
[2016-12-12] MEDS: ATORVASTATIN CA 40 MG TABLET (FP) PO SCH (21:46)
[2016-12-12] MEDS: SENNOSIDES 8.6MG TABLET (FP) PO SCH (21:46)
[2016-12-12] MEDS: METOPROLOL SUCCINATE 50 MG TAB.SR.24H (FP) PO SCH (21:51)
[2016-12-13] MEDS: metFORMIN HCL 500 MG TABLET (FP) PO SCH ×2 (06:32→16:45)
[2016-12-13] MEDS: glipiZIDE 5 MG TABLET (FP) PO SCH ×3 (06:33→16:45)
[2016-12-13] MEDS: INSULIN SLIDING SCALE (NOVOLOG) 1 VIAL SQ SCH ×4 (06:34→21:46)
[2016-12-13 07:02] LABS: ANION GAP 9 (8-16); CALCIUM 9.2 mg/dL (8.5-10.1); CO2 25 mmol/L (21-32); GLUCOSE,RANDOM 246 mg/dL (74-106)
--- NOTE | 2016-12-13 09:45 | PN ---
Progress Note (short form) - Note Progress Note: Patient with Chronic Bronchitis with Acute Exacerbation, DM uncontrolled and not compliant with diet, ASHD and hypertension is still having wheezing. Initial EKG showed T wave changes and we await timing to do stress test. No BM. no chest pain today. On Exam: Vital Signs Temp 97.9 F 12/13/16 06:01 Pulse 77 12/13/16 06:01 Resp 20 12/13/16 06:01 BP 140/87 12/13/16 06:01 Pulse Ox 98 12/13/16 02:00 Intake & Output 12/12/16 12/12/16 12/13/16 11:59 23:59 11:59 Intake Total 10 1010 120 Output Total 900 1300 Balance 10 110 -1180 Intake: IV 10 10 left hand 10 10 Oral 1000 120 Output: Urine 900 1300 Void 900 1300 Other: Voiding Method Urinal Urinal Urinal # Unmeasured Voids Void 1 2 # Bowel Movements 1 Alert Chest: Bilateral wheezing Cor Reg Abd: Obese Ext: no edema Abnormal Lab Results 12/13/16 06:20 Sodium 132 L BUN 21 H D Random Glucose 246 H D IMP: COPD with acute exacerbation Hypertension NIDDM non compliant with diet ASHD Chronic Pain Plan: IV steroids IV BGM's Pain Rx Await stress test F/U Lab
[2016-12-13] MEDS: RANITIDINE HCL 150 MG TABLET (FP) PO SCH (09:55)
[2016-12-13] MEDS: AZITHROMYCIN 250 MG TABLET PO SCH (09:55)
[2016-12-13] MEDS: CLOPIDOGREL BISULFATE 75 MG TABLET (FP) PO SCH (09:56)
[2016-12-13] MEDS: LACTOBACILLUS ACIDOPHILUS 1 EACH TAB (FP) PO SCH (09:56)
[2016-12-13] MEDS: ASPIRIN 81 MG CHEWABLE TABLETS PO SCH (09:56)
[2016-12-13] MEDS: BUDESONIDE/FORMETEROL FUMARATE 160/4.5 mcg INHALER IH SCH ×2 (09:57→21:41)
[2016-12-13] MEDS: ACLIDINIUM BROMIDE 400 MCG/INH AERO.POWD IH SCH ×2 (09:57→21:40)
[2016-12-13] MEDS ORDERED: MAGNESIUM CITRATE 300 ML BOTTLE PO ONE (10:15)
--- NOTE | 2016-12-13 10:26 | PN ---
Progress Note, Physician Chief Complaint: sob History of Present Illness: describes sob with associated RIGHT pectoral pain at home. no more pain now. still sob but somewhat better. still wheezing. says this pain often comes with prior copd attacks over the past few years, feels the same this time, improves gradually as sob resolves with prn albuterol no palpitations, syncope - Current Medication List Current Medications: Active Medications Acetaminophen (Tylenol -) 650 mg PO Q4H PRN PRN Reason: FEVER OR PAIN Last Admin: 12/12/16 20:05 Dose: 650 mg Acetaminophen/Codeine Phosphate (Tylenol # 3 -) 1 tab PO Q6H PRN PRN Reason: FEVER OR PAIN Aclidinium [place] (Tudorza -) 1 puff IH BID [facility] Last Admin: 12/13/16 09:57 Dose: 1 puff Albuterol Sulfate (Ventolin 0.083% Nebulizer Soln -) 1 amp NEB Q4H PRN PRN Reason: SHORTNESS OF BREATH Last Admin: 12/11/16 18:16 Dose: 1 amp Aspirin (Asa -) 81 mg PO DAILY [facility] Last Admin: 12/13/16 09:56 Dose: 81 mg Atorvastatin [place]cium (Lipitor -) 40 mg PO HS [facility] Last Admin: 12/12/16 21:46 Dose: 40 mg Azithromycin (Zithromax -) 250 mg PO DAILY [facility] Last Admin: 12/13/16 09:55 Dose: 250 mg Budesonide/Formoterol Fumarate (Symbicort 160/4.5mcg -) 2 puff IH BID [facility] Last Admin: 12/13/16 09:57 Dose: 2 puff Clopidogrel Bisulfate (Plavix -) 75 mg PO DAILY [facility] Last Admin: 12/13/16 09:56 Dose: 75 mg Glipizide (Glucotrol -) 5 mg PO TIDAC [facility] Last Admin: 12/13/16 06:33 Dose: 5 mg Guaifenesin (Diabetic Tussin Dm -) 10 ml PO Q4H PRN PRN Reason: COUGH Insulin Aspart (Novolog Vial Sliding Scale -) 0 vial SQ ACHS [facility] PRN Reason: Protocol Last Admin: 12/13/16 06:34 Dose: Not Given Lactobacillus Acidophilus (Bacid -) 1 tab PO DAILY [facility] Last Admin: 12/13/16 09:56 Dose: 1 tab Metformin HCl (Glucophage -) 1,000 mg PO BID@0700,1630 [facility] Last Admin: 12/13/16 06:32 Dose: 1,000 mg Methylprednisolone Sodium Succinate (Solu-Medrol -) 40 mg IVPB Q8H-IV [facility] Metoprolol Succinate (Toprol Xl -) [address] [facility] Last Admin: 12/12/16 21:51 Dose: 50 mg Nifedipine (Procardia Xl -) [address] [facility] Last Admin: 12/12/16 21:46 Dose: 60 mg Ondansetron HCl (Zofran Injection) 4 mg IVPB Q6H PRN PRN Reason: NAUSEA Ranitidine HCl (Zantac -) 150 mg PO DAILY [facility] Last Admin: 12/13/16 09:55 Dose: 150 mg Senna (Senna -) [address] [facility] Last Admin: 12/12/16 21:46 Dose: 1 tab Valsartan (Diovan -) [address] [facility] Last Admin: 12/12/16 21:46 Dose: 80 mg - Objective Vital Signs: Vital Signs Temperature 97.9 F 12/13/16 06:01 Pulse Rate 73 12/13/16 10:17 Respiratory Rate 20 12/13/16 06:01 Blood Pressure 140/87 12/13/16 06:01 O2 Sat by Pulse Oximetry (%) 97 12/13/16 10:17 Constitutional: Yes: No Distress, Calm, Obese Cardiovascular: Yes: Regular Rate and Rhythm, S1, S2. No: JVD (tds habitus), Gallop, Murmur Respiratory: Yes: Regular, CTA Bilaterally (decreased sounds diffusely), Rhonchi , Wheezes. No: Rales Extremities: No: Cold Edema: No Neurological: Yes: Alert, Oriented Psychiatric: No: Agitated Labs: CBC, BMP 12/11/16 05:30 12/13/16 06:20 - ....Imaging EKG: Other (tele: NSR) Assessment/Plan ekg: sr with pac's. lad, anterolateral and lateral twi. lateral twi new. cxr: report pending. by my review, increased interstitial markings but not definitively 2/2 congestion. rt costophrenic angle somewhat obscured. echo 2016: nl lv/rv. 1+ ar/mr. rvsp 40-50. 1+ ao dilation. 71 yo with h/o CAD s/p ANUM mid [id number] with residual d1/om1 disease, HTN, hyperlipidemia, COPD, Type 2 DM, parotid neoplasm s/p resection, posterior neck lipoma, c-spine stenosis, gout and DJD who presents with sob/weakness. cad, cp, sob: -R pectoral CP associated with his copd attacks over the years, identical sx's this time as well. -CP now resolved --trop negative x 3 here. no clinical concern for ACS. -new twi in lateral leads on ecg here. -history of ANUM mid RCA 2011, with residual disease d1 60-70%, om1 60-70% - for dobutamine nuclear stress test once sob/wheezing improves. - rpt echo pending, do not see evidence of volume/chf - con't asa, plavix (has been tolerating dapt as outpatient)--ultimate duration of DAPT as per f/u with dr escobar in office - cont statin, ccb, bb, acei copd/chronic bronchitis, a.e. - being treated by dr payan htn - reasonable control - con't current regimen hl - con't statin + e-cig - cessation counseling
[2016-12-13] MEDS: ALBUTEROL SO4 0.083% IH SOL 2.5 MG/3 ML VIAL.NEB. NEB PRN (10:45)
[2016-12-13] MEDS: methylPREDNISolone NA SUCC 40 MG/1 ML VIAL IVPB SCH ×2 (10:58→17:39)
--- NOTE | 2016-12-13 12:40 | PN ---
Progress Note (short form) - Note Progress Note: PULMONARY CONSULTATION DICTATED 12/13/16 IMP COPD EXACERBATION CHEST PAIN ASHD S/P STENT DM HLD HTN LIKELY NOREEN PLAN STEROIDS INHALED BRONCHODILATORS O2 CARDIOLOGY W/U SLEEP SCREEN PFTS OUTPATIENT DVT PROPHYLAXIS DR MAR Problem List - Problems (1) Chest pain Code(s): R07.9 - CHEST PAIN, UNSPECIFIED (2) COPD exacerbation Code(s): J44.1 - CHRONIC OBSTRUCTIVE PULMONARY DISEASE W (ACUTE) EXACERBATION (3) COPD (chronic obstructive pulmonary disease) Code(s): J44.9 - CHRONIC OBSTRUCTIVE PULMONARY DISEASE, UNSPECIFIED (4) Coronary artery disease Code(s): I25.10 - ATHSCL HEART DISEASE OF [place] CORONARY ARTERY W/O ANG PCTRS Qualifiers: Coronary Disease-Associated Artery/Lesion type: [place] artery [place] vs. transplanted heart: [place] heart Associated angina: without angina Qualified Code(s): I25.10 - Atherosclerotic heart disease of [place] coronary artery without angina pectoris; I25.10 - Atherosclerotic heart disease of [place] coronary artery without angina pectoris; I25.10 - Atherosclerotic heart disease of [place] coronary artery without angina pectoris (5) Diabetes Code(s): E11.9 - TYPE 2 DIABETES MELLITUS WITHOUT COMPLICATIONS Qualifiers: Diabetes mellitus type: type 2 Diabetes mellitus complication status: without complication Diabetes mellitus lobsterman insulin use: without lobsterman use Qualified Code(s): E11.9 - Type 2 diabetes mellitus without complications; E11.9 - Type 2 diabetes mellitus without complications; E11.9 - Type 2 diabetes mellitus without complications; E11.9 - Type 2 diabetes mellitus without complications (6) Hyperlipidemia Code(s): E78.5 - HYPERLIPIDEMIA, UNSPECIFIED Qualifiers: Hyperlipidemia type: pure hypercholesterolemia (7) Hypertension Code(s): I10 - ESSENTIAL (PRIMARY) HYPERTENSION Qualifiers: Hypertension type: essential hypertension Qualified Code(s): I10 - Essential (primary) hypertension; I10 - Essential (primary) hypertension; I10 - Essential (primary) hypertension (8) Status post coronary artery stent placement Code(s): Z95.5 - PRESENCE OF CORONARY ANGIOPLASTY IMPLANT AND GRAFT
[2016-12-13] MEDS ORDERED: INSULIN (NOVOLOG) ASPART 100 UNITS/ML 10ML VIAL ONE ×2 (16:41→21:46)
--- NOTE | 2016-12-13 21:38 | CONS ---
DATE OF CONSULTATION: 12/13/2016 REFERRING PHYSICIAN: Clif Abad MD HISTORY: The patient is a 71-year-old white male, known to me from previous hospitalizations, with a past medical history of COPD, ASHD status post stent, hyperlipidemia, osteoarthritis, gout, history of parotid surgery, diabetes, history of tobacco use and quit 4 years ago, occasionally smokes a cigarette, who was admitted to [facility] with complaints of increasing shortness of breath, generalized weakness and intermittent chest pain. Patient denies any nausea, vomiting, diaphoresis, or hemoptysis. Patient presented to the emergency department. On admission, he was placed on inhaled bronchodilators and steroids with clinical improvement. He was evaluated by Dr. Rousseau for a cardiology consultation. She ordered a stress test. The patient denies a history of occupational exposure. 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 There is no history of recent travel. There is no history of DVT or PE in the past. He does state that he is a heavy snorer. He has occasional daytime sleepiness. He states that he has never had a sleep study in the past. PAST MEDICAL HISTORY: Includes COPD, ASHD status post stent, diabetes, hyperlipidemia, history of parotid neoplasm, status post resection, posterior neck lipoma, cervical spine stenosis, gout, and degenerative joint disease. CURRENT MEDICATIONS: Include Symbicort 160/0.45, Solu-Medrol 40 q8, Zofran, Tylenol, Diovan, Zithromax, bacitracin, Tudorza, diabetic tussin, albuterol, metoprolol, Glucophage, senna, Procardia, Zantac, Lipitor, Plavix, and Glucotrol. REVIEW OF SYSTEMS: Positive dyspnea, positive occasional cough, positive chest pain. No nausea, no vomiting, no abdominal pain. No lower extremity edema. PHYSICAL EXAMINATION: General: The patient is a well-developed, well-nourished male, awake, alert, currently in no acute distress. Vital signs: He is currently afebrile, blood pressure is 116/71, respiratory rate is 18, O2 saturation is 97% on 2 L. HEENT: Head is normocephalic, atraumatic. Neck: Supple. Heart: Regular S1, S2. Chest: Diminished breath sounds bilaterally. A few scattered bilateral wheezes. Abdomen: Soft. Bowel sounds positive. Extremities: No cyanosis or edema. LABORATORY: WBC is 9.0, hemoglobin 12.9, hematocrit 38.1, platelet count of 284,000. Chemistries: BUN 21, creatinine 1.0, glucose of 246, sodium is 132. Chest x-ray: No acute infiltrates and/or effusions. IMPRESSION: This man most likely has: 1. Chronic obstructive pulmonary disease exacerbation. 2. Atherosclerotic heart disease, status post stent. 3. Chest pain, etiology undetermined. Rule out possible cardiac. 4. Diabetes. 5. Hypercholesterolemia. PLAN: Continue steroids and inhaled bronchodilators, supplemental O2. Continue cardiac workup as per Cardiology. Consider low dose CT scan of the chest on a yearly basis since the patient has a longstanding history of tobacco use. ALEXYS MAR M.D. [id number]
[2016-12-13] MEDS: METOPROLOL SUCCINATE 50 MG TAB.SR.24H (FP) PO SCH (21:39)
[2016-12-13] MEDS: VALSARTAN 80 MG TABLET (UD) PO SCH (21:39)
[2016-12-13] MEDS: ATORVASTATIN CA 40 MG TABLET (FP) PO SCH (21:39)
[2016-12-13] MEDS: SENNOSIDES 8.6MG TABLET (FP) PO SCH (21:39)
[2016-12-13] MEDS: NIFEdipine E.R 60 MG TABLET (UD) PO SCH (21:40)
[2016-12-13] MEDS: ACETAMINOPHEN WITH CODEINE 300MG/30MG TABLET PO PRN (21:41)
[2016-12-14] MEDS: methylPREDNISolone NA SUCC 40 MG/1 ML VIAL IVPB SCH ×3 (01:55→17:00)
[2016-12-14] MEDS: INSULIN SLIDING SCALE (NOVOLOG) 1 VIAL SQ SCH ×4 (06:18→21:37)
[2016-12-14] MEDS: glipiZIDE 5 MG TABLET (FP) PO SCH ×3 (06:18→17:01)
[2016-12-14] MEDS: metFORMIN HCL 500 MG TABLET (FP) PO SCH ×2 (06:18→17:01)
[2016-12-14 06:50] LABS: ANION GAP 8 (8-16); CALCIUM 9.1 mg/dL (8.5-10.1); CO2 27 mmol/L (21-32); GLUCOSE,RANDOM 250 mg/dL (74-106)
[2016-12-14 06:54] LABS: BASOPHIL 0.3 % (0-2.0); MCH 29.4 pg (25.7-33.7); MCHC 32.9 g/dl (32.0-35.9); MEAN CELL VOLUME 89.3 fl (80-96); MEAN PLT VOLUME 8.1 fl (7.5-11.1); NEUTROPHILS 84.6 % (42.8-82.8); PLATELET COUNT 294 K/MM3 (134-434); RDW 14.1 % (11.9-15.9); WHITE BLOOD COUNT 14.6 K/mm3 (4.0-10.0)
[2016-12-14] MEDS ORDERED: PT OWN MED DRAWER 7, Y5N ONE (09:24)
[2016-12-14] MEDS: LACTOBACILLUS ACIDOPHILUS 1 EACH TAB (FP) PO SCH (09:33)
[2016-12-14] MEDS: CLOPIDOGREL BISULFATE 75 MG TABLET (FP) PO SCH (09:33)
[2016-12-14] MEDS: RANITIDINE HCL 150 MG TABLET (FP) PO SCH (09:33)
[2016-12-14] MEDS: AZITHROMYCIN 250 MG TABLET PO SCH (09:33)
[2016-12-14] MEDS: ASPIRIN 81 MG CHEWABLE TABLETS PO SCH (09:33)
[2016-12-14] MEDS: BUDESONIDE/FORMETEROL FUMARATE 160/4.5 mcg INHALER IH SCH ×3 (09:34→21:36)
[2016-12-14] MEDS: ACLIDINIUM BROMIDE 400 MCG/INH AERO.POWD IH SCH ×3 (09:34→21:36)
--- NOTE | 2016-12-14 10:43 | PN ---
Progress Note, Physician History of Present Illness: pulmonary alert,feeling better,less dyspneic,-cp - Current Medication List Current Medications: Active Medications Acetaminophen (Tylenol -) 650 mg PO Q4H PRN PRN Reason: FEVER OR PAIN Last Admin: 12/12/16 20:05 Dose: 650 mg Acetaminophen/Codeine Phosphate (Tylenol # 3 -) 1 tab PO Q6H PRN PRN Reason: FEVER OR PAIN Last Admin: 12/13/16 21:41 Dose: 1 tab Aclidinium [place] (Tudorza -) 1 puff IH BID [facility] Last Admin: 12/14/16 09:34 Dose: 1 puff Albuterol Sulfate (Ventolin 0.083% Nebulizer Soln -) 1 amp NEB Q4H PRN PRN Reason: SHORTNESS OF BREATH Last Admin: 12/13/16 10:45 Dose: 1 amp Aspirin (Asa -) 81 mg PO DAILY [facility] Last Admin: 12/14/16 09:33 Dose: 81 mg Atorvastatin Calcium (Lipitor -) 40 mg PO HS [facility] Last Admin: 12/13/16 21:39 Dose: 40 mg Azithromycin (Zithromax -) 250 mg PO DAILY [facility] Last Admin: 12/14/16 09:33 Dose: 250 mg Budesonide/Formoterol Fumarate (Symbicort 160/4.5mcg -) 2 puff IH BID [facility] Last Admin: 12/14/16 09:34 Dose: 2 puff Clopidogrel Bisulfate (Plavix -) 75 mg PO DAILY [facility] Last Admin: 12/14/16 09:33 Dose: 75 mg Glipizide (Glucotrol -) 5 mg PO TIDAC [facility] Last Admin: 12/14/16 06:18 Dose: 5 mg Guaifenesin (Diabetic Tussin Dm -) 10 ml PO Q4H PRN PRN Reason: COUGH Insulin Aspart (Novolog Vial Sliding Scale -) 0 vial SQ ACHS [facility] PRN Reason: Protocol Last Admin: 12/14/16 06:18 Dose: 4 units Lactobacillus Acidophilus (Bacid -) 1 tab PO DAILY [facility] Last Admin: 12/14/16 09:33 Dose: 1 tab Metformin HCl (Glucophage -) 1,000 mg PO BID@0700,1630 [facility] Last Admin: 12/14/16 06:18 Dose: 1,000 mg Methylprednisolone Sodium Succinate (Solu-Medrol -) 40 mg IVPB Q8H-IV [facility] Last Admin: 12/14/16 09:34 Dose: 40 mg Metoprolol Succinate (Toprol Xl -) 50 mg PO [facility] Last Admin: 12/13/16 21:39 Dose: 50 mg Nifedipine (Procardia Xl -) 60 mg PO [facility] Last Admin: 12/13/16 21:40 Dose: 60 mg Ondansetron HCl (Zofran Injection) 4 mg IVPB Q6H PRN PRN Reason: NAUSEA Ranitidine HCl (Zantac -) 150 mg PO DAILY [facility] Last Admin: 12/14/16 09:33 Dose: 150 mg Senna (Senna -) 1 tab PO [facility] Last Admin: 12/13/16 21:39 Dose: 1 tab Valsartan (Diovan -) 80 mg PO [facility] Last Admin: 12/13/16 21:39 Dose: 80 mg - Objective Vital Signs: Vital Signs Temperature 97.5 F L 12/14/16 05:52 Pulse Rate 65 12/14/16 05:52 Respiratory Rate 20 12/14/16 05:52 Blood Pressure 119/75 12/14/16 05:52 O2 Sat by Pulse Oximetry (%) 96 12/13/16 22:00 Constitutional: Yes: Well Nourished, Calm Eyes: Yes: WNL HENT: Yes: WNL Neck: Yes: WNL Cardiovascular: Yes: Regular Rate and Rhythm, S1, S2 Respiratory: Yes: Wheezes (scattered fernando whhezes) Gastrointestinal: Yes: Normal Bowel Sounds, Soft Extremities: Yes: WNL Edema: No Labs: CBC, BMP 12/14/16 06:00 12/14/16 06:00 Problem List - Problems (1) Chest pain Code(s): R07.9 - CHEST PAIN, UNSPECIFIED (2) COPD exacerbation Code(s): J44.1 - CHRONIC OBSTRUCTIVE PULMONARY DISEASE W (ACUTE) EXACERBATION (3) COPD (chronic obstructive pulmonary disease) Code(s): J44.9 - CHRONIC OBSTRUCTIVE PULMONARY DISEASE, UNSPECIFIED (4) Coronary artery disease Code(s): I25.10 - ATHSCL HEART DISEASE OF [place] CORONARY ARTERY W/O ANG PCTRS Qualifiers: Coronary Disease-Associated Artery/Lesion type: [place] artery [place] vs. transplanted heart: [place] heart Associated angina: without angina Qualified Code(s): I25.10 - Atherosclerotic heart disease of [place] coronary artery without angina pectoris; I25.10 - Atherosclerotic heart disease of [place] coronary artery without angina pectoris; I25.10 - Atherosclerotic heart disease of [place] coronary artery without angina pectoris (5) Diabetes Code(s): E11.9 - TYPE 2 DIABETES MELLITUS WITHOUT COMPLICATIONS Qualifiers: Diabetes mellitus type: type 2 Diabetes mellitus complication status: without complication Diabetes mellitus fci insulin use: without intermediate card tender use Qualified Code(s): E11.9 - Type 2 diabetes mellitus without complications; E11.9 - Type 2 diabetes mellitus without complications; E11.9 - Type 2 diabetes mellitus without complications; E11.9 - Type 2 diabetes mellitus without complications (6) Hyperlipidemia Code(s): E78.5 - HYPERLIPIDEMIA, UNSPECIFIED Qualifiers: Hyperlipidemia type: pure hypercholesterolemia (7) Hypertension Code(s): I10 - ESSENTIAL (PRIMARY) HYPERTENSION Qualifiers: Hypertension type: essential hypertension Qualified Code(s): I10 - Essential (primary) hypertension; I10 - Essential (primary) hypertension; I10 - Essential (primary) hypertension (8) Status post coronary artery stent placement Code(s): Z95.5 - PRESENCE OF CORONARY ANGIOPLASTY IMPLANT AND GRAFT Assessment/Plan IMP COPD EXACERBATION CHEST PAIN ASHD S/P STENT DM HLD HTN LIKELY NOREEN PLAN STEROID TAPER INHALED BRONCHODILATORS O2 EST IN AM PFTS OUTPATIENT DVT PROPHYLAXIS DR MAR Problem List - Problems (1) Chest pain Code(s): R07.9 - CHEST PAIN, UNSPECIFIED (2) COPD exacerbation Code(s): J44.1 - CHRONIC OBSTRUCTIVE PULMONARY DISEASE W (ACUTE) EXACERBATION (3) COPD (chronic obstructive pulmonary disease) Code(s): J44.9 - CHRONIC OBSTRUCTIVE PULMONARY DISEASE, UNSPECIFIED (4) Coronary artery disease Code(s): I25.10 - ATHSCL HEART DISEASE OF [place] CORONARY ARTERY W/O ANG PCTRS Qualifiers: Coronary Disease-Associated Artery/Lesion type: [place] artery [place] vs. transplanted heart: [place] heart Associated angina: without angina Qualified Code(s): I25.10 - Atherosclerotic heart disease of [place] coronary artery without angina pectoris; I25.10 - Atherosclerotic heart disease of [place] coronary artery without angina pectoris; I25.10 - Atherosclerotic heart disease of [place] coronary artery without angina pectoris (5) Diabetes Code(s): E11.9 - TYPE 2 DIABETES MELLITUS WITHOUT COMPLICATIONS Qualifiers: Diabetes mellitus type: type 2 Diabetes mellitus complication status: without complication Diabetes mellitus fci insulin use: without fci use Qualified Code(s): E11.9 - Type 2 diabetes mellitus without complications; E11.9 - Type 2 diabetes mellitus without complications; E11.9 - Type 2 diabetes mellitus without complications; E11.9 - Type 2 diabetes mellitus without complications (6) Hyperlipidemia Code(s): E78.5 - HYPERLIPIDEMIA, UNSPECIFIED Qualifiers: Hyperlipidemia type: pure hypercholesterolemia (7) Hypertension Code(s): I10 - ESSENTIAL (PRIMARY) HYPERTENSION Qualifiers: Hypertension type: essential hypertension Qualified Code(s): I10 - Essential (primary) hypertension; I10 - Essential (primary) hypertension; I10 - Essential (primary) hypertension (8) Status post coronary artery stent placement Code(s): Z95.5 - PRESENCE OF CORONARY ANGIOPLASTY IMPLANT AND GRAFT
[2016-12-14] MEDS: ALBUTEROL SO4 0.083% IH SOL 2.5 MG/3 ML VIAL.NEB. NEB PRN ×2 (11:15→22:35)
[2016-12-14] MEDS: ACETAMINOPHEN WITH CODEINE 300MG/30MG TABLET PO PRN (12:25)
[2016-12-14] MEDS ORDERED: MAGNESIUM CITRATE 300 ML BOTTLE PO PRN (15:08)
--- NOTE | 2016-12-14 15:17 | PN ---
Progress Note, Physician Chief Complaint: Still some wheezing off and on. History of Present Illness: The patient is still wheezing but improved from admission. Cardiology does not want to give adenosine for stress test until wheezing controlled so I will increase solumedrol to 60mgIV for 24 hrs.+ Had BM. BGM's elevate due to Steroids IV - Current Medication List Current Medications: Active Medications Acetaminophen (Tylenol -) 650 mg PO Q4H PRN PRN Reason: FEVER OR PAIN Last Admin: 12/12/16 20:05 Dose: 650 mg Acetaminophen/Codeine Phosphate (Tylenol # 3 -) 1 tab PO Q6H PRN PRN Reason: FEVER OR PAIN Last Admin: 12/14/16 12:25 Dose: 1 tab Aclidinium [place] (Tudorza -) 1 puff IH BID [facility] Last Admin: 12/13/16 21:40 Dose: 1 puff Albuterol Sulfate (Ventolin 0.083% Nebulizer Soln -) 1 amp NEB Q4H PRN PRN Reason: SHORTNESS OF BREATH Last Admin: 12/14/16 11:15 Dose: 1 amp Aspirin (Asa -) 81 mg PO DAILY [facility] Last Admin: 12/14/16 09:33 Dose: 81 mg Atorvastatin Calcium (Lipitor -) 40 mg PO HS [facility] Last Admin: 12/13/16 21:39 Dose: 40 mg Azithromycin (Zithromax -) 250 mg PO DAILY [facility] Last Admin: 12/14/16 09:33 Dose: 250 mg Budesonide/Formoterol Fumarate (Symbicort 160/4.5mcg -) 2 puff IH BID [facility] Last Admin: 12/13/16 21:41 Dose: 2 puff Clopidogrel Bisulfate (Plavix -) 75 mg PO DAILY [facility] Last Admin: 12/14/16 09:33 Dose: 75 mg Glipizide (Glucotrol -) 5 mg PO TIDAC [facility] Last Admin: 12/14/16 12:25 Dose: 5 mg Guaifenesin (Diabetic Tussin Dm -) 10 ml PO Q4H PRN PRN Reason: COUGH Insulin Aspart (Novolog Vial Sliding Scale -) 0 vial SQ ACHS [facility] PRN Reason: Protocol Last Admin: 12/14/16 12:25 Dose: Not Given Lactobacillus Acidophilus (Bacid -) 1 tab PO DAILY [facility] Last Admin: 12/14/16 09:33 Dose: 1 tab Magnesium Citrate (Citroma -) 300 ml PO PRN PRN PRN Reason: CONSTIPATION Stop: 12/15/16 15:09 Metformin HCl (Glucophage -) 1,000 mg PO BID@0700,1630 [facility] Last Admin: 12/14/16 06:18 Dose: 1,000 mg Methylprednisolone Sodium Succinate (Solu-Medrol -) 60 mg IVPB Q8H-IV [facility] Metoprolol Succinate (Toprol Xl -) [address] [facility] Last Admin: 12/13/16 21:39 Dose: 50 mg Nifedipine (Procardia Xl -) [address] [facility] Last Admin: 12/13/16 21:40 Dose: 60 mg Ondansetron HCl (Zofran Injection) 4 mg IVPB Q6H PRN PRN Reason: NAUSEA Ranitidine HCl (Zantac -) 150 mg PO DAILY [facility] Last Admin: 12/14/16 09:33 Dose: 150 mg Senna (Senna -) [address] [facility] Last Admin: 12/13/16 21:39 Dose: 1 tab Valsartan (Diovan -) [address] [facility] Last Admin: 12/13/16 21:39 Dose: 80 mg - Objective Vital Signs: Vital Signs Temperature 98.7 F 12/14/16 10:00 Pulse Rate 68 12/14/16 11:20 Respiratory Rate 20 12/14/16 10:00 Blood Pressure 128/80 12/14/16 10:00 O2 Sat by Pulse Oximetry (%) 97 12/14/16 11:20 Constitutional: Yes: Calm Neck: Yes: Supple Cardiovascular: Yes: Tachycardia Respiratory: Yes: Diminished, Wheezes Gastrointestinal: Yes: Soft, Distention Genitourinary: No: [place] Present Edema: No Neurological: Yes: Alert, Oriented Labs: CBC, BMP 12/14/16 06:00 12/14/16 06:00 - ....Imaging Chest X-ray: Report Reviewed
--- NOTE | 2016-12-14 16:53 | PN ---
Progress Note (short form) - Note Progress Note: Chief Complaint: sob History of Present Illness: sob improved today. no cp, palps, dizziness. Current Medications Acetaminophen (Tylenol -) 650 mg PO Q4H PRN PRN Reason: FEVER OR PAIN Last Admin: 12/12/16 20:05 Dose: 650 mg Acetaminophen/Codeine Phosphate (Tylenol # 3 -) 1 tab PO Q6H PRN PRN Reason: FEVER OR PAIN Last Admin: 12/14/16 12:25 Dose: 1 tab Aclidinium [place] (Tudorza -) 1 puff IH BID [facility] Last Admin: 12/13/16 21:40 Dose: 1 puff Albuterol Sulfate (Ventolin 0.083% Nebulizer Soln -) 1 amp NEB Q4H PRN PRN Reason: SHORTNESS OF BREATH Last Admin: 12/14/16 11:15 Dose: 1 amp Aspirin (Asa -) 81 mg PO DAILY [facility] Last Admin: 12/14/16 09:33 Dose: 81 mg Atorvastatin Calcium (Lipitor -) 40 mg PO HS [facility] Last Admin: 12/13/16 21:39 Dose: 40 mg Azithromycin (Zithromax -) 250 mg PO DAILY [facility] Last Admin: 12/14/16 09:33 Dose: 250 mg Budesonide/Formoterol Fumarate (Symbicort 160/4.5mcg -) 2 puff IH BID [facility] Last Admin: 12/13/16 21:41 Dose: 2 puff Clopidogrel Bisulfate (Plavix -) 75 mg PO DAILY [facility] Last Admin: 12/14/16 09:33 Dose: 75 mg Glipizide (Glucotrol -) 5 mg PO TIDAC [facility] Last Admin: 12/14/16 12:25 Dose: 5 mg Guaifenesin (Diabetic Tussin Dm -) 10 ml PO Q4H PRN PRN Reason: COUGH Insulin Aspart (Novolog Vial Sliding Scale -) 0 vial SQ ACHS [facility] PRN Reason: Protocol Last Admin: 12/14/16 12:25 Dose: Not Given Lactobacillus Acidophilus (Bacid -) 1 tab PO DAILY [facility] Last Admin: 12/14/16 09:33 Dose: 1 tab Magnesium Citrate (Citroma -) 300 ml PO PRN PRN PRN Reason: CONSTIPATION Stop: 12/15/16 15:09 Metformin HCl (Glucophage -) 1,000 mg PO BID@0700,1630 [facility] Last Admin: 12/14/16 06:18 Dose: 1,000 mg Methylprednisolone Sodium Succinate (Solu-Medrol -) 60 mg IVPB Q8H-IV [facility] Metoprolol Succinate (Toprol Xl -) 50 mg PO [facility] Last Admin: 12/13/16 21:39 Dose: 50 mg Nifedipine (Procardia Xl -) 60 mg PO [facility] Last Admin: 12/13/16 21:40 Dose: 60 mg Ondansetron HCl (Zofran Injection) 4 mg IVPB Q6H PRN PRN Reason: NAUSEA Ranitidine HCl (Zantac -) 150 mg PO DAILY [facility] Last Admin: 12/14/16 09:33 Dose: 150 mg Senna (Senna -) 1 tab PO [facility] Last Admin: 12/13/16 21:39 Dose: 1 tab Valsartan (Diovan -) 80 mg PO [facility] Last Admin: 12/13/16 21:39 Dose: 80 mg Vital Signs - 24 hr 12/13/16 12/13/16 12/13/16 18:00 19:55 22:00 Temperature 97.8 F 97.8 F Pulse Rate 97 H 91 H Respiratory 20 20 Rate Blood Pressure 148/86 140/91 O2 Sat by Pulse 97 96 Oximetry (%) 12/14/16 12/14/16 12/14/16 02:00 05:52 10:00 Temperature 98 F 97.5 F L 98.7 F Pulse Rate 75 65 70 Respiratory 20 20 20 Rate Blood Pressure 139/77 119/75 128/80 O2 Sat by Pulse 99 Oximetry (%) 12/14/16 12/14/16 11:20 15:43 Temperature 97.4 F L Pulse Rate 68 77 Respiratory 20 Rate Blood Pressure 129/76 O2 Sat by Pulse 97 Oximetry (%) Intake & Output 12/12/16 12/13/16 12/14/16 12/15/16 07:59 07:59 07:59 07:59 Intake Total 310 1130 700 810 Output Total 1200 2200 1000 400 Balance -890 -1070 -300 410 Weight 242 lb 12.8 oz Constitutional: Yes: No Distress, Calm, Obese Cardiovascular: Yes: Regular Rate and Rhythm, S1, S2. No: JVD (tds habitus), Gallop, Murmur Respiratory: Yes: Regular, CTA Bilaterally (decreased sounds diffusely), no wheezes. No: Rales Extremities: No: Cold Edema: No Neurological: Yes: Alert, Oriented Psychiatric: No: Agitated Labs: CBC, BMP 12/14/16 06:00 12/14/16 06:00 - ....Imaging EKG: Other (tele: NSR) echo 12/2016: nl lv size/fn. pseudonormalization. mod lae. 1+ mac. rvsp 40- 50. 1+ ao dil. Assessment/Plan ekg: sr with pac's. lad, anterolateral and lateral twi. lateral twi new. cxr: report pending. by my review, increased interstitial markings but not definitively 2/2 congestion. rt costophrenic angle somewhat obscured. echo 2016: nl lv/rv. 1+ ar/mr. rvsp 40-50. 1+ ao dilation. 71 yo with h/o CAD s/p ANUM mid [id number] with residual d1/om1 disease, HTN, hyperlipidemia, COPD, Type 2 DM, parotid neoplasm s/p resection, posterior neck lipoma, c-spine stenosis, gout and DJD who presents with sob/weakness. cad, cp, sob: -R pectoral CP associated with his copd attacks over the years, identical sx's this time as well. -CP now resolved --trop negative x 3 here. no clinical concern for ACS. -new twi in lateral leads on ecg here. -history of ANUM mid RCA 2011, with residual disease d1 60-70%, om1 60-70% - for dobutamine nuclear stress test tomorrow not that wheezing has impoved. - rpt echo with nl lv ef. + pseudonormalization. - con't asa, plavix (has been tolerating dapt as outpatient)--ultimate duration of DAPT as per f/u with dr escobar in office - cont statin, ccb, bb, acei hyponatremia - unclear if this is related to volume status. not overtly volume overloaded as mentioned above. cont to monitor weight and sodium trend. copd/chronic bronchitis, a.e. - being treated by dr payan htn - reasonable control - con't current regimen hl - con't statin + e-cig - cessation counseling
[2016-12-14] MEDS ORDERED: INSULIN (NOVOLOG) ASPART 100 UNITS/ML 10ML VIAL ONE (16:59)
[2016-12-14] MEDS: VALSARTAN 80 MG TABLET (UD) PO SCH (21:35)
[2016-12-14] MEDS: ATORVASTATIN CA 40 MG TABLET (FP) PO SCH (21:35)
[2016-12-14] MEDS: NIFEdipine E.R 60 MG TABLET (UD) PO SCH (21:36)
[2016-12-14] MEDS: SENNOSIDES 8.6MG TABLET (FP) PO SCH (21:36)
[2016-12-15] MEDS: methylPREDNISolone NA SUCC 40 MG/1 ML VIAL IVPB SCH ×2 (01:17→12:35)
[2016-12-15] MEDS: ACETAMINOPHEN WITH CODEINE 300MG/30MG TABLET PO PRN (01:30)
[2016-12-15] MEDS: ALBUTEROL SO4 0.083% IH SOL 2.5 MG/3 ML VIAL.NEB. NEB PRN (06:48)
[2016-12-15] MEDS: INSULIN SLIDING SCALE (NOVOLOG) 1 VIAL SQ SCH ×5 (07:14→22:38)
[2016-12-15] MEDS: glipiZIDE 5 MG TABLET (FP) PO SCH ×3 (07:14→17:11)
[2016-12-15] MEDS: metFORMIN HCL 500 MG TABLET (FP) PO SCH ×2 (07:20→17:11)
[2016-12-15 08:06] LABS: ALBUMIN 3.6 g/dl (3.4-5.0); ANION GAP 9 (8-16); CALCIUM 8.7 mg/dL (8.5-10.1); CO2 26 mmol/L (21-32); GLUCOSE,RANDOM 267 mg/dL (74-106)
[2016-12-15 08:10] LABS: ALK PHOS 90 U/L (45-117); BILIRUBIN,TOTAL 0.5 mg/dL (0.2-1.0); CREATININE 1.1 mg/dL (0.7-1.3); SGOT/AST 16 U/L (15-37); SGPT/ALT 28 U/L (12-78); TOT PROT 7.5 g/dl (6.4-8.2)
--- NOTE | 2016-12-15 08:25 | PN ---
Progress Note (short form) - Note Progress Note: Patient is less SOB today. For Stress test. Had BM No chest pain. On Exam: Vital Signs Temp 97.9 F 12/15/16 06:00 Pulse 82 12/15/16 06:00 Resp 20 12/15/16 06:00 BP 119/71 12/15/16 06:00 Pulse Ox 95 12/14/16 21:00 Intake & Output 12/14/16 12/14/16 12/15/16 11:59 23:59 11:59 Intake Total 210 1410 350 Output Total 3570 736 4919 Balance -1190 610 -1550 Weight 242 lb 12.8 oz 242 lb 6.4 oz Intake: IV 10 10 10 left hand 10 10 10 IVPB 100 Oral 200 1400 240 Output: Urine 6031 329 8189 Void 1654 089 9613 Other: Voiding Method Toilet Urinal Toilet Bowel Movement Yes No No # Bowel Movements 1 Weight Measurement Method Standing Scale Standing Scale Alert Chest: Improved wheezing Cor Reg Abd: Obese Ext: No edema Abnormal Lab Results 12/15/16 06:01 Sodium 132 L Chloride 97 L BUN 26 H Random Glucose 267 H IMP: ASHD S/P Stent EKG changes Chronic Bronchitis with acute exacerbation NIDDM uncontrolled due to dietary compliance issues Hypertension Plan: Stress test today Ambulation. Taper steroids depending on respiratory status
[2016-12-15] MEDS ORDERED: DOBUTAMINE HCL 100,000 MCG in DEXTROSE 5%-WATER - 92 ML IVPB ONE (10:00)
[2016-12-15] MEDS: LACTOBACILLUS ACIDOPHILUS 1 EACH TAB (FP) PO SCH (12:33)
[2016-12-15] MEDS: AZITHROMYCIN 250 MG TABLET PO SCH (12:33)
[2016-12-15] MEDS: RANITIDINE HCL 150 MG TABLET (FP) PO SCH (12:33)
[2016-12-15] MEDS: CLOPIDOGREL BISULFATE 75 MG TABLET (FP) PO SCH (12:33)
[2016-12-15] MEDS: ASPIRIN 81 MG CHEWABLE TABLETS PO SCH (12:33)
[2016-12-15] MEDS: BUDESONIDE/FORMETEROL FUMARATE 160/4.5 mcg INHALER IH SCH ×2 (12:34→22:39)
[2016-12-15] MEDS: ACLIDINIUM BROMIDE 400 MCG/INH AERO.POWD IH SCH ×2 (12:35→22:39)
[2016-12-15] MEDS: ACETAMINOPHEN 325 MG TABLET (FP) PO PRN (14:15)
--- NOTE | 2016-12-15 15:09 | PN ---
Progress Note, Physician History of Present Illness: PULMONARY ' ALERT,NAD,-SOB,-CP. PT S/P NUCLEAR STRESS FINDING NOTED - Current Medication List Current Medications: Active Medications Acetaminophen (Tylenol -) 650 mg PO Q4H PRN PRN Reason: FEVER OR PAIN Last Admin: 12/15/16 14:15 Dose: 650 mg Acetaminophen/Codeine Phosphate (Tylenol # 3 -) 1 tab PO Q6H PRN PRN Reason: FEVER OR PAIN Last Admin: 12/15/16 01:30 Dose: 1 tab Aclidinium [place] (Tudorza -) 1 puff IH BID [facility] Last Admin: 12/15/16 12:35 Dose: 1 puff Albuterol Sulfate (Ventolin 0.083% Nebulizer Soln -) 1 amp NEB Q4H PRN PRN Reason: SHORTNESS OF BREATH Last Admin: 12/15/16 06:48 Dose: 1 amp Aspirin (Asa -) 81 mg PO DAILY [facility] Last Admin: 12/15/16 12:33 Dose: 81 mg Atorvastatin Calcium (Lipitor -) 40 mg PO HS [facility] Last Admin: 12/14/16 21:35 Dose: 40 mg Azithromycin (Zithromax -) 250 mg PO DAILY [facility] Last Admin: 12/15/16 12:33 Dose: 250 mg Budesonide/Formoterol Fumarate (Symbicort 160/4.5mcg -) 2 puff IH BID [facility] Last Admin: 12/15/16 12:34 Dose: 2 puff Clopidogrel Bisulfate (Plavix -) 75 mg PO DAILY [facility] Last Admin: 12/15/16 12:33 Dose: 75 mg Glipizide (Glucotrol -) 5 mg PO TIDAC [facility] Last Admin: 12/15/16 12:33 Dose: 5 mg Guaifenesin (Diabetic Tussin Dm -) 10 ml PO Q4H PRN PRN Reason: COUGH Insulin Aspart (Novolog Vial Sliding Scale -) 0 vial SQ ACHS [facility] PRN Reason: Protocol Last Admin: 12/15/16 12:39 Dose: 4 units Lactobacillus Acidophilus (Bacid -) 1 tab PO DAILY [facility] Last Admin: 12/15/16 12:33 Dose: 1 tab Magnesium Citrate (Citroma -) 300 ml PO PRN PRN PRN Reason: CONSTIPATION Stop: 12/15/16 15:09 Metformin HCl (Glucophage -) 1,000 mg PO BID@0700,1630 [facility] Last Admin: 12/15/16 07:20 Dose: Not Given Methylprednisolone Sodium Succinate (Solu-Medrol -) 60 mg IVPB Q8H-IV [facility] Last Admin: 12/15/16 12:35 Dose: 60 mg Metoprolol Succinate (Toprol Xl -) 50 mg PO [facility] Last Admin: 12/13/16 21:39 Dose: 50 mg Nifedipine (Procardia Xl -) 60 mg PO [facility] Last Admin: 12/14/16 21:36 Dose: 60 mg Ondansetron HCl (Zofran Injection) 4 mg IVPB Q6H PRN PRN Reason: NAUSEA Ranitidine HCl (Zantac -) 150 mg PO DAILY [facility] Last Admin: 12/15/16 12:33 Dose: 150 mg Senna (Senna -) 1 tab PO [facility] Last Admin: 12/14/16 21:36 Dose: 1 tab Valsartan (Diovan -) 80 mg PO [facility] Last Admin: 12/14/16 21:35 Dose: 80 mg - Objective Vital Signs: Vital Signs Temperature 98.4 F 12/15/16 14:09 Pulse Rate 90 12/15/16 14:09 Respiratory Rate 18 12/15/16 14:09 Blood Pressure 138/85 12/15/16 14:09 O2 Sat by Pulse Oximetry (%) 95 12/15/16 09:00 Constitutional: Yes: Well Nourished, Calm Eyes: Yes: WNL HENT: Yes: WNL Neck: Yes: WNL Cardiovascular: Yes: Regular Rate and Rhythm, S1, S2 Respiratory: Yes: Diminished Gastrointestinal: Yes: Normal Bowel Sounds, Soft Extremities: Yes: WNL Edema: No Labs: CBC, BMP 12/14/16 06:00 12/15/16 06:01 Problem List - Problems (1) Chest pain Code(s): R07.9 - CHEST PAIN, UNSPECIFIED (2) COPD exacerbation Code(s): J44.1 - CHRONIC OBSTRUCTIVE PULMONARY DISEASE W (ACUTE) EXACERBATION (3) COPD (chronic obstructive pulmonary disease) Code(s): J44.9 - CHRONIC OBSTRUCTIVE PULMONARY DISEASE, UNSPECIFIED (4) Coronary artery disease Code(s): I25.10 - ATHSCL HEART DISEASE OF [place] CORONARY ARTERY W/O ANG PCTRS Qualifiers: Coronary Disease-Associated Artery/Lesion type: [place] artery [place] vs. transplanted heart: [place] heart Associated angina: without angina Qualified Code(s): I25.10 - Atherosclerotic heart disease of [place] coronary artery without angina pectoris; I25.10 - Atherosclerotic heart disease of [place] coronary artery without angina pectoris; I25.10 - Atherosclerotic heart disease of [place] coronary artery without angina pectoris (5) Diabetes Code(s): E11.9 - TYPE 2 DIABETES MELLITUS WITHOUT COMPLICATIONS Qualifiers: Diabetes mellitus type: type 2 Diabetes mellitus complication status: without complication Diabetes mellitus buttermaker insulin use: without buttermaker use Qualified Code(s): E11.9 - Type 2 diabetes mellitus without complications; E11.9 - Type 2 diabetes mellitus without complications; E11.9 - Type 2 diabetes mellitus without complications; E11.9 - Type 2 diabetes mellitus without complications (6) Hyperlipidemia Code(s): E78.5 - HYPERLIPIDEMIA, UNSPECIFIED Qualifiers: Hyperlipidemia type: pure hypercholesterolemia (7) Hypertension Code(s): I10 - ESSENTIAL (PRIMARY) HYPERTENSION Qualifiers: Hypertension type: essential hypertension Qualified Code(s): I10 - Essential (primary) hypertension; I10 - Essential (primary) hypertension; I10 - Essential (primary) hypertension (8) Status post coronary artery stent placement Code(s): Z95.5 - PRESENCE OF CORONARY ANGIOPLASTY IMPLANT AND GRAFT Assessment/Plan IMP COPD EXACERBATION IMPROVED CHEST PAIN ASHD S/P STENT DM HLD HTN LIKELY NOREEN PLAN START PREDNISONE IN AM INHALED BRONCHODILATORS O2 FURTHER CARDIAC W/U PER CARDIOLOGY ? CATH PFTS OUTPATIENT DVT PROPHYLAXIS DR MAR Problem List - Problems (1) Chest pain Code(s): R07.9 - CHEST PAIN, UNSPECIFIED (2) COPD exacerbation Code(s): J44.1 - CHRONIC OBSTRUCTIVE PULMONARY DISEASE W (ACUTE) EXACERBATION (3) COPD (chronic obstructive pulmonary disease) Code(s): J44.9 - CHRONIC OBSTRUCTIVE PULMONARY DISEASE, UNSPECIFIED (4) Coronary artery disease Code(s): I25.10 - ATHSCL HEART DISEASE OF [place] CORONARY ARTERY W/O ANG PCTRS Qualifiers: Coronary Disease-Associated Artery/Lesion type: [place] artery [place] vs. transplanted heart: [place] heart Associated angina: without angina Qualified Code(s): I25.10 - Atherosclerotic heart disease of [place] coronary artery without angina pectoris; I25.10 - Atherosclerotic heart disease of [place] coronary artery without angina pectoris; I25.10 - Atherosclerotic heart disease of [place] coronary artery without angina pectoris (5) Diabetes Code(s): E11.9 - TYPE 2 DIABETES MELLITUS WITHOUT COMPLICATIONS Qualifiers: Diabetes mellitus type: type 2 Diabetes mellitus complication status: without complication Diabetes mellitus buttermaker insulin use: without buttermaker use Qualified Code(s): E11.9 - Type 2 diabetes mellitus without complications; E11.9 - Type 2 diabetes mellitus without complications; E11.9 - Type 2 diabetes mellitus without complications; E11.9 - Type 2 diabetes mellitus without complications (6) Hyperlipidemia Code(s): E78.5 - HYPERLIPIDEMIA, UNSPECIFIED Qualifiers: Hyperlipidemia type: pure hypercholesterolemia (7) Hypertension Code(s): I10 - ESSENTIAL (PRIMARY) HYPERTENSION Qualifiers: Hypertension type: essential hypertension Qualified Code(s): I10 - Essential (primary) hypertension; I10 - Essential (primary) hypertension; I10 - Essential (primary) hypertension (8) Status post coronary artery stent placement Code(s): Z95.5 - PRESENCE OF CORONARY ANGIOPLASTY IMPLANT AND GRAFT
--- NOTE | 2016-12-15 16:32 | PN ---
Progress Note (short form) - Note Progress Note: Chief Complaint: sob History of Present Illness: sob improved today. episode of rt sided cp last night while walking to bathroom. Had stress test today. metoprolol held last night for stress test. no palps, dizziness. Current Medications Acetaminophen (Tylenol -) 650 mg PO Q4H PRN PRN Reason: FEVER OR PAIN Last Admin: 12/15/16 14:15 Dose: 650 mg Acetaminophen/Codeine Phosphate (Tylenol # 3 -) 1 tab PO Q6H PRN PRN Reason: FEVER OR PAIN Last Admin: 12/15/16 01:30 Dose: 1 tab Aclidinium [place] (Tudorza -) 1 puff IH BID [facility] Last Admin: 12/15/16 12:35 Dose: 1 puff Albuterol Sulfate (Ventolin 0.083% Nebulizer Soln -) 1 amp NEB Q4H PRN PRN Reason: SHORTNESS OF BREATH Last Admin: 12/15/16 06:48 Dose: 1 amp Aspirin (Asa -) 81 mg PO DAILY [facility] Last Admin: 12/15/16 12:33 Dose: 81 mg Atorvastatin Calcium (Lipitor -) 40 mg PO HS [facility] Last Admin: 12/14/16 21:35 Dose: 40 mg Azithromycin (Zithromax -) 250 mg PO DAILY [facility] Last Admin: 12/15/16 12:33 Dose: 250 mg Budesonide/Formoterol Fumarate (Symbicort 160/4.5mcg -) 2 puff IH BID [facility] Last Admin: 12/15/16 12:34 Dose: 2 puff Clopidogrel Bisulfate (Plavix -) 75 mg PO DAILY [facility] Last Admin: 12/15/16 12:33 Dose: 75 mg Glipizide (Glucotrol -) 5 mg PO TIDAC [facility] Last Admin: 12/15/16 12:33 Dose: 5 mg Guaifenesin (Diabetic Tussin Dm -) 10 ml PO Q4H PRN PRN Reason: COUGH Insulin Aspart (Novolog Vial Sliding Scale -) 0 vial SQ ACHS [facility] PRN Reason: Protocol Last Admin: 12/15/16 12:39 Dose: 4 units Lactobacillus Acidophilus (Bacid -) 1 tab PO DAILY [facility] Last Admin: 12/15/16 12:33 Dose: 1 tab Metformin HCl (Glucophage -) 1,000 mg PO BID@0700,1630 [facility] Last Admin: 12/15/16 07:20 Dose: Not Given Metoprolol Succinate (Toprol Xl -) 50 mg PO [facility] Last Admin: 12/13/16 21:39 Dose: 50 mg Nifedipine (Procardia Xl -) 60 mg PO [facility] Last Admin: 12/14/16 21:36 Dose: 60 mg Ondansetron HCl (Zofran Injection) 4 mg IVPB Q6H PRN PRN Reason: NAUSEA Prednisone (Deltasone -) 40 mg PO DAILY [facility] Ranitidine HCl (Zantac -) 150 mg PO DAILY [facility] Last Admin: 12/15/16 12:33 Dose: 150 mg Senna (Senna -) 1 tab PO [facility] Last Admin: 12/14/16 21:36 Dose: 1 tab Valsartan (Diovan -) 80 mg PO [facility] Last Admin: 12/14/16 21:35 Dose: 80 mg Vital Signs - 24 hr 12/14/16 12/14/16 12/14/16 17:00 21:00 22:00 Temperature 98.2 F 97.6 F Pulse Rate 77 82 Respiratory 20 20 20 Rate Blood Pressure 148/84 141/80 O2 Sat by Pulse 95 Oximetry (%) 12/15/16 12/15/16 12/15/16 02:00 06:00 09:00 Temperature 97.5 F L 97.9 F Pulse Rate 77 82 Respiratory 20 20 Rate Blood Pressure 124/60 119/71 O2 Sat by Pulse 95 Oximetry (%) 12/15/16 12/15/16 10:00 14:09 Temperature 98 F 98.4 F Pulse Rate 92 H 90 Respiratory 18 18 Rate Blood Pressure 130/66 138/85 O2 Sat by Pulse Oximetry (%) Intake & Output 12/13/16 12/14/16 12/15/16 12/16/16 07:59 07:59 07:59 07:59 Intake Total 7112 594 8340 400 Output Total 2200 1000 3100 Balance -1070 -300 -1130 400 Weight 242 lb 12.8 oz 242 lb 6.4 oz Constitutional: Yes: No Distress, Calm, Obese Cardiovascular: Yes: Regular Rate and Rhythm, S1, S2. No: JVD (tds habitus), Gallop, Murmur Respiratory: Yes: Regular, CTA Bilaterally (decreased sounds diffusely), no wheezes. No: Rales Extremities: No: Cold Edema: No Neurological: Yes: Alert, Oriented Psychiatric: No: Agitated Labs: CBC, BMP 12/15/16 06:01 - ....Imaging EKG: Other (tele: NSR with pac's. ~ 12 beat run of wide complex tach with ramp up, likely SVT with aberrancy) echo 12/2016: nl lv size/fn. pseudonormalization. mod lae. 1+ mac. rvsp 40- 50. 1+ ao dil. stress 12/2016: Occ PVC's with stress, no ischemic st-t wave changes. Large area of moderate intensity anterior and lateral wall ischemia. EF 39%. Assessment/Plan ekg: sr with pac's. lad, anterolateral and lateral twi. lateral twi new. cxr: report pending. by my review, increased interstitial markings but not definitively 2/2 congestion. rt costophrenic angle somewhat obscured. echo 2016: nl lv/rv. 1+ ar/mr. rvsp 40-50. 1+ ao dilation. 71 yo with h/o CAD s/p ANUM mid [id number] with residual d1/om1 disease, HTN, hyperlipidemia, COPD, Type 2 DM, parotid neoplasm s/p resection, posterior neck lipoma, c-spine stenosis, gout and DJD who presents with sob/weakness. cad, cp, sob: -R pectoral CP associated with his copd attacks over the years, identical sx's this time as well. -CP now resolved --trop negative x 3 here. no clinical concern for ACS. new twi in lateral leads on ecg here. - rpt echo with nl lv ef. + pseudonormalization. - con't asa, plavix (has been tolerating dapt as outpatient)--ultimate duration of DAPT as per f/u with dr escobar in office - cont statin, ccb, bb, arb -history of ANUM mid RCA 2011, with residual disease d1 60-70%, om1 60-70% - stress test positive for ischemia including large area of anterior ischemia and drop in EF to 39% --> plan to transfer to [facility] for cath tomorrow. nsvt vs. svt with aberrancy overnight on tele but metoprolol dose held last night for stress. Will give tonight's evening dose early. Add on magnesium level. hyponatremia - unclear if this is related to volume status. not overtly volume overloaded as mentioned above. cont to monitor weight (stable) and sodium trend. copd/chronic bronchitis, a.e. - being treated by dr payan htn - reasonable control - con't current regimen hl - con't statin + e-cig - cessation counseling
[2016-12-15] MEDS ORDERED: METOPROLOL SUCCINATE 50 MG TAB.SR.24H (FP) PO SCH (16:45)
[2016-12-15] MEDS ORDERED: INSULIN (NOVOLOG) ASPART 100 UNITS/ML 10ML VIAL ONE (22:36)
[2016-12-15] MEDS: SENNOSIDES 8.6MG TABLET (FP) PO SCH (22:38)
[2016-12-15] MEDS: ATORVASTATIN CA 40 MG TABLET (FP) PO SCH (22:38)
[2016-12-15] MEDS: VALSARTAN 80 MG TABLET (UD) PO SCH (22:38)
[2016-12-15] MEDS: NIFEdipine E.R 60 MG TABLET (UD) PO SCH (22:38)
[2016-12-16] MEDS: metFORMIN HCL 500 MG TABLET (FP) PO SCH (06:25)
[2016-12-16] MEDS: INSULIN SLIDING SCALE (NOVOLOG) 1 VIAL SQ SCH ×2 (06:26→11:27)
[2016-12-16] MEDS: glipiZIDE 5 MG TABLET (FP) PO SCH ×2 (06:26→11:27)
[2016-12-16 07:25] LABS: BASOPHIL 0.1 % (0-2.0); MCH 29.2 pg (25.7-33.7); MCHC 32.9 g/dl (32.0-35.9); MEAN CELL VOLUME 88.6 fl (80-96); MEAN PLT VOLUME 8.1 fl (7.5-11.1); NEUTROPHILS 74.8 % (42.8-82.8); PLATELET COUNT 303 K/MM3 (134-434); WHITE BLOOD COUNT 15.8 K/mm3 (4.0-10.0)
[2016-12-16 07:49] LABS: INR 1.04 (0.82-1.09); PROTHROMBIN TIME (PATIENT) 11.5 SEC (9.98-11.88)
[2016-12-16 08:08] LABS: ANION GAP 12 (8-16); CALCIUM 8.6 mg/dL (8.5-10.1); CO2 26 mmol/L (21-32); CREATININE 0.9 mg/dL (0.7-1.3); GLUCOSE,RANDOM 218 mg/dL (74-106); MAGNESIUM 2.2 mg/dL (1.8-2.4)
[2016-12-16] MEDS: ACETAMINOPHEN WITH CODEINE 300MG/30MG TABLET PO PRN (08:38)
[2016-12-16] MEDS: AZITHROMYCIN 250 MG TABLET PO SCH (09:41)
[2016-12-16] MEDS: ASPIRIN 81 MG CHEWABLE TABLETS PO SCH (09:43)
[2016-12-16] MEDS: CLOPIDOGREL BISULFATE 75 MG TABLET (FP) PO SCH (09:43)
[2016-12-16] MEDS: RANITIDINE HCL 150 MG TABLET (FP) PO SCH (09:43)
[2016-12-16] MEDS: LACTOBACILLUS ACIDOPHILUS 1 EACH TAB (FP) PO SCH (09:43)
[2016-12-16] MEDS: BUDESONIDE/FORMETEROL FUMARATE 160/4.5 mcg INHALER IH SCH (09:44)
[2016-12-16] MEDS: ACLIDINIUM BROMIDE 400 MCG/INH AERO.POWD IH SCH (09:44)
[2016-12-16] MEDS ORDERED: predniSONE 20 MG TABLET (UD) PO SCH (10:00)
[2016-12-16 10:28] VITALS: BP 119/76; PULSE 64; TEMP 98
--- NOTE | 2016-12-16 10:40 | PN ---
Progress Note (short form) - Note Progress Note: History of Present Illness: no sob cp palps dizzy Current Medications Generic Name Dose Route Start Last Admin Trade Name Freq PRN Reason Stop Dose Admin Acetaminophen 650 mg 12/10/16 15:44 12/15/16 14:15 Tylenol - PO 650 mg Q4H PRN Administration FEVER OR PAIN Acetaminophen/Codeine Phosphate 1 tab 12/13/16 09:37 12/16/16 08:38 Tylenol # 3 - PO 1 tab Q6H PRN Administration FEVER OR PAIN Aclidinium [place] 1 puff 12/11/16 10:00 12/16/16 09:44 Tudorza - IH 1 puff BID [facility]ANITA Administration Albuterol Sulfate 1 amp 12/11/16 17:17 12/15/16 06:48 Ventolin 0.083% Nebulizer Soln - NEB 1 amp Q4H PRN Administration SHORTNESS OF BREATH Aspirin 81 mg 12/11/16 10:00 12/16/16 09:43 Asa - PO 81 mg DAILY [facility] Administration Atorvastatin Calcium 40 mg 12/10/16 22:00 12/15/16 22:38 Lipitor - PO 40 mg HS [facility] Administration Azithromycin 250 mg 12/11/16 10:00 12/16/16 09:41 Zithromax - PO 250 mg DAILY [facility] Administration Budesonide/Formoterol Fumarate 2 puff 12/10/16 22:00 12/16/16 09:44 Symbicort 160/4.5mcg - IH 2 puff BID [facility] Administration Clopidogrel Bisulfate 75 mg 12/11/16 10:00 12/16/16 09:43 Plavix - PO 75 mg DAILY [facility] Administration Glipizide 5 mg 12/10/16 16:30 12/16/16 06:26 Glucotrol - PO Not Given TIDAC [facility] Guaifenesin 10 ml 12/10/16 15:43 Diabetic Tussin Dm - PO Q4H PRN COUGH Insulin Aspart 0 vial 12/10/16 16:30 12/16/16 06:26 Novolog Vial Sliding Scale - SQ Not Given ACHS [facility]ANITA Protocol Lactobacillus Acidophilus 1 tab 12/11/16 10:00 12/16/16 09:43 Bacid - PO 1 tab DAILY [facility] Administration Metformin HCl 1,000 mg 12/10/16 16:30 12/16/16 06:25 Glucophage - PO Not Given BID@0700,1630 [facility] Metoprolol Succinate 50 mg 12/15/16 16:45 12/15/16 17:12 Toprol Xl - PO 50 mg HS [facility] Administration Nifedipine 60 mg 12/10/16 22:00 12/15/16 22:38 Procardia Xl - PO 60 mg HS [facility] Administration Ondansetron HCl 4 mg 12/10/16 15:44 Zofran Injection IVPB Q6H PRN NAUSEA Prednisone 40 mg 12/16/16 10:00 12/16/16 09:43 Deltasone - PO 40 mg DAILY [facility] Administration Ranitidine HCl 150 mg 12/11/16 10:00 12/16/16 09:43 Zantac - PO 150 mg DAILY [facility] Administration Senna 1 tab 12/10/16 22:00 12/15/16 22:38 Senna - PO 1 tab HS [facility] Administration Valsartan 80 mg 12/10/16 22:00 12/15/16 22:38 Diovan - PO 80 mg HS [facility] Administration Vital Signs Period Temp Pulse Resp BP Sys/Streeter Pulse Ox Last 24 Hr 97.3 F-98.4 F 64-90 18-20 105-152/67-99 96 Constitutional: Yes: No Distress, Calm, Obese Cardiovascular: Yes: Regular Rate and Rhythm, S1, S2. No: JVD (tds habitus), Gallop, Murmur Respiratory: Yes: Regular, CTA Bilaterally no wheezes. No: Rales Extremities: No: Cold Edema: No Neurological: Yes: Alert, Oriented Psychiatric: No: Agitated aaox3 no jaundice diaphoresis Labs: CBC, BMP 12/16/16 05:15 12/16/16 05:15 - ....Imaging EKG: Other (tele: sr, occ pvcs) echo 12/2016: nl lv size/fn. pseudonormalization. mod lae. 1+ mac. rvsp 40- 50. 1+ ao dil. stress 12/2016: Occ PVC's with stress, no ischemic st-t wave changes. Large area of moderate intensity anterior and lateral wall ischemia. EF 39%. ekg: sr with pac's. lad, anterolateral and lateral twi. lateral twi new. cxr: report pending. by my review, increased interstitial markings but not definitively 2/2 congestion. rt costophrenic angle somewhat obscured. echo 2016: nl lv/rv. 1+ ar/mr. rvsp 40-50. 1+ ao dilation. Assessment/Plan 71 yo with h/o CAD s/p ANUM mid [id number] with residual d1/om1 disease, HTN, hyperlipidemia, COPD, Type 2 DM, parotid neoplasm s/p resection, posterior neck lipoma, c-spine stenosis, gout and DJD who presents with sob/weakness. cad, cp, sob: -R pectoral CP associated with his copd attacks over the years, identical sx's this time as well. -CP now resolved -trop negative x 3 here. no clinical concern for ACS. new twi in lateral leads on ecg here. - rpt echo with nl lv ef. + pseudonormalization. - con't asa, plavix (has been tolerating dapt as outpatient)--ultimate duration of DAPT as per f/u with dr escobar in office - cont statin, ccb, bb, arb -history of ANUM mid RCA 2011, with residual disease d1 60-70%, om1 60-70% - stress test positive for ischemia including large area of anterior ischemia and drop in EF to 39% --> plan to transfer to [facility] for cath. hyponatremia - unclear if this is related to volume status. not overtly volume overloaded as mentioned above. cont to monitor weight (stable) and sodium trend. copd/chronic bronchitis, a.e. - being treated by dr payan htn - reasonable control - con't current regimen hl - con't statin + e-cig - cessation counseling
[2016-12-16] MEDS ORDERED: INSULIN (NOVOLOG) ASPART 100 UNITS/ML 10ML VIAL ONE (11:29)
--- NOTE | 2016-12-16 21:17 | DS ---
Physical Examination Vital Signs: Vital Signs Temperature 98 F 12/16/16 10:00 Pulse Rate 64 12/16/16 10:00 Respiratory Rate 18 12/16/16 10:00 Blood Pressure 119/76 12/16/16 10:00 O2 Sat by Pulse Oximetry (%) 96 12/16/16 09:00 Constitutional: Yes: Calm HENT: No: Nasal Congestion Cardiovascular: Yes: Regular Rate and Rhythm Respiratory: Yes: Diminished. No: Wheezes Gastrointestinal: Yes: Soft, Distention Renal/: No: [place] Present Edema: No Neurological: Yes: Alert, Oriented Labs: CBC, BMP 12/16/16 05:15 12/16/16 05:15 Discharge Summary Reason For Visit: CHEST PAIN Current Active Problems Chest pain (Acute) Constipation (Chronic) Acute cardiac ischemia. Diabetes, uncontrolled. Hypertension. Acute COPD with acute exacerbation Procedures: Principal: chest x-ray cardiogram. Serial cardiac enzymes. Cardiology and pulmonary consultation Other Procedures: followup blood glucose monitoring. Treat with IV steroids and antibiotics. Stress test as per cardiology Hospital Course: patient had ischemia noted on stress test. Arrangements were made immediately transferred to [facility] for cardiac catheterization on , December 16, 2016. Condition: Stable - Instructions Diet, Activity, Other Instructions: No added salt or sugar. Referrals: Evangelist Rosado MD [Primary Care Provider] - Gilberto Ramirez MD [Staff Physician] - Alex Monteiro MD [Staff Physician] - Disposition: TRANSFER ACUTE CARE/OTHER HOSP - Home Medications Comprehensive Discharge Medication List: Ambulatory Orders Aspirin [ASA -] 81 mg PO DAILY #60 tab.chew 07/19/14 Albuterol 2.5/Ipratropium 0.5 [Duoneb -] 1 neb IH QID PRN #50 vial.neb. Albuterol Sulfate Inhaler - [Ventolin HFA Inhaler -] 2 inh IH Q4H #1 inh Atorvastatin Ca [Lipitor] 40 mg PO HS #30 tablet 07/26/15 Budesonide/Formeterol Fumarate [SYMBICORT 160/4.5mcg -] 2 inh IH BID #1 inhaler 07/26/15 Ranitidine [Zantac -] 150 mg PO DAILY #30 tablet 07/26/15 Glipizide [Glucotrol -] 5 mg PO TIDAC #90 tablet 12/26/15 Metformin HCl [Glucophage -] 1,000 mg PO BID@0700,1630 #60 tablet 12/26/15 Albuterol 0.083% Nebulizer [place] [Ventolin 0.083% Nebulizer Soln -] 1 neb NEB Q4H PRN 02/19/16 Clopidogrel Bisulfate [Plavix -] 75 mg PO DAILY #30 tablet 02/20/16 Metoprolol Succinate [Toprol XL -] 50 mg PO HS 02/20/16 Nifedipine ER [Procardia XL -] 60 mg PO HS 02/20/16 Valsartan [Diovan] 80 mg PO HS 02/20/16 Guaifenesin/D-Methorphan Hb [Diabetic Tussin Dm -] 10 ml PO Q4H PRN #0 ml Sennosides [Senna -] 1 tab PO HS tablet 05/21/16 Tiotropium [place] [Spiriva] 1 puff IH DAILY inh 05/21/16 Acetaminophen W/ Codeine #3 [Tylenol # 3 -] 1 tab PO Q6H PRN #30 tablet MDD 4 Acetaminophen [Tylenol .Regular Strength -] 650 mg PO Q4H PRN #0 tablet Insulin Sliding Scale [Novolog Vial Sliding Scale -] 0 vial SQ ACHS units 12/16 Lactobacillus Acidophilus [Bacid -] 1 tab PO DAILY tab 12/16/16 Magnesium Citrate [Citroma -] 300 ml PO PRN PRN #1 bottle 12/16/16 Methylprednisolone Na Succ [Solu-Medrol -] 60 mg IVPB Q8H-IV #1 vial 12/16/16
== END 2016-12-16 13:03 | disposition short-term general hospital (02) | DRG 191 ==
LOC: JER 11:01 → JERBED 13:36 → J4W 15:21 → OBSVTOIN 12-13 10:33
PROVIDERS: ADMIT Internal Medicine; ATTEND Internal Medicine
DX: J44.1 Chronic obstructive pulmonary disease with (acute) exacerbation (principal); E87.1 Hypo-osmolality and hyponatremia; I25.10 Atherosclerotic heart disease of native coronary artery without angina pectoris; K59.00 Constipation, unspecified; R07.9 Chest pain, unspecified; I10 Essential (primary) hypertension; E11.65 Type 2 diabetes mellitus with hyperglycemia; E78.5 Hyperlipidemia, unspecified; Z98.61 Coronary angioplasty status; E66.9 Obesity, unspecified; Z68.30 Body mass index [BMI] 30.0-30.9, adult
CPT/HCPCS: 36415; 71020-TC; 78452-TC; 80048; 80053; 82553; 83735; 83880; 84100; 84484; 85025; 85610; 93005; 93010; 93017; 93306-TC; 94010; 94640; 97116-GP; 97161-GP; 99284-25; A9502; G0378

== ENCOUNTER 2017-06-08 19:06 | Inpatient (IN) | payer OTHER ==
--- NOTE | 2017-06-08 19:20 | PDOC ---
Rapid Medical Evaluation Time Seen by Provider: 06/08/17 19:14 Medical Evaluation: Allergies Allergy/AdvReac Type Severity Reaction Status Date / Time oxycodone AdvReac Intermediate Verified 12/10/16 11:07 06/08/17 19:19 I have performed a brief in-person evaluation of this patient. The patient presents with a chief complaint of: SOB, CP, cough, weakness x 1 month, H/o HTN, HLD, CAD w/ 6 stents, ? PVD, DM, COPD, asthma, not on oxygen, s/ p resection for parotid neoplasm PMD: Dr Leija Cards: Dr Garcia Pertinent physical exam findings:Stable w/ clear chest/lungs I have ordered the following:ekg/cxr/labs The patient will proceed to the ED for further evaluation. Discharge Disposition - Diagnosis SOB (shortness of breath) - Referrals - Patient Instructions - Post Discharge Activity
[2017-06-08] MEDS ORDERED: ALBUTEROL SO4 2.5/IPRATROPIUM 0.5 INH SOL 3 ML VIAL.NEB. NEB ONE ×5 (20:11→21:40)
[2017-06-08] MEDS ORDERED: methylPREDNISolone NA SUCC 125 MG/2 ML VIAL IVPB ONE (20:11)
[2017-06-08] MEDS ORDERED: MAGNESIUM SULF 50% (8.12 MEQ/2 ML-1 GM VIAL) IVPB ONE (20:12)
--- NOTE | 2017-06-08 20:14 | PDOC ---
History of Present Illness - General History Source: Patient, Old Records Exam Limitations: No Limitations - History of Present Illness Initial Comments: 06/08/17 20:23 The patient is a 71 year old male, with a significant past medical history of HTN, HLD, COPD, CAD with multiple stents and diabetes, who presents to the emergency department complaining of shortness of breath, chest tightness, dyspnea on exertion/conversation, non productive cough and an associated sore throat. The patient states that he has been using nebs twice a day with 2 albuterol every time. He notes that the last time he was hospitalized was November. He notes that The patient denies headache or dizziness. Denies fever, chills, nausea, vomiting , diarrhea and constipation. Allergies: Oxycodone Past surgical history: 1961-glass shard in abd removed and had abd infection afterward Social History: No alcohol, tobacco or drug use reported PMD: Dr. Leija Tanning Salon Attendant: Dr. Garcia <Travon Barrios - Last Filed: 06/08/17 20:23> <Tasia John - Last Filed: 06/08/17 21:39> - General Chief Complaint: Shortness of Breath Stated Complaint: S.O.B Time Seen by Provider: 06/08/17 19:14 Past History <Travon Barrios - Last Filed: 06/08/17 20:23> - Past Medical History Anemia: No Asthma: Yes Cancer: No Cardiac Disorders: Yes (cardiac 2 stents) CVA: No COPD: Yes CHF: No DVT: No Dementia: No Diabetes: Yes GI Disorders: No Disorders: No HTN: Yes Hypercholesterolemia: Yes Liver Disease: No Seizures: No Thyroid Disease: No - Surgical History Abdominal Surgery: Yes (1961-glass shard in abd removed and had abd infection afterward) Appendectomy: No Cardiac Surgery: Yes (CARDIAC STENTS 04/2010) Cholecystectomy: No Lung Surgery: No Neurologic Surgery: No Orthopedic Surgery: No - Immunization History Immunization Up to Date: Yes - Suicide/Smoking/Psychosocial Hx Smoking Status: No Smoking History: Former smoker Years of Tobacco Use: 35 Have you smoked in the past 12 months: No Number of Cigarettes Smoked Daily: 0 If you are a former smoker, when did you quit?: 1 yr ago Cigars Per Day: 0 Information on smoking cessation initiated: No 'Breaking Loose' booklet given: 12/10/16 Hx Alcohol Use: No Drug/Substance Use Hx: No Substance Use Type: None Hx Substance Use Treatment: No <Tasia John - Last Filed: 06/08/17 21:39> - Past Medical History Allergies/Adverse Reactions: Allergies Allergy/AdvReac Type Severity Reaction Status Date / Time oxycodone AdvReac Intermediate Verified 06/08/17 19:22 Home Medications: Ambulatory Orders Aspirin [ASA -] 81 mg PO DAILY #60 tab.chew 07/19/14 Albuterol 2.5/Ipratropium 0.5 [Duoneb -] 1 neb IH QID PRN #50 vial.neb. Albuterol Sulfate Inhaler - [Ventolin HFA Inhaler -] 2 inh IH Q4H #1 inh Atorvastatin Ca [Lipitor] 40 mg PO HS #30 tablet 07/26/15 Budesonide/Formeterol Fumarate [SYMBICORT 160/4.5mcg -] 2 inh IH BID #1 inhaler 07/26/15 Ranitidine [Zantac -] 150 mg PO DAILY #30 tablet 07/26/15 Glipizide [Glucotrol -] 5 mg PO TIDAC #90 tablet 12/26/15 metFORMIN HCL [Glucophage -] 1,000 mg PO BID@0700,1630 #60 tablet 12/26/15 Albuterol 0.083% Nebulizer Clare [Ventolin 0.083% Nebulizer Soln -] 1 neb NEB Q4H PRN 02/19/16 Clopidogrel Bisulfate [Plavix -] 75 mg PO DAILY #30 tablet 02/20/16 Metoprolol Succinate [Toprol XL -] 50 mg PO HS 02/20/16 Nifedipine ER [Procardia XL -] 60 mg PO HS 02/20/16 Valsartan [Diovan] 80 mg PO HS 02/20/16 Guaifenesin/D-Methorphan Hb [Diabetic Tussin Dm -] 10 ml PO Q4H PRN #0 ml Sennosides [Senna -] 1 tab PO HS tablet 05/21/16 Tiotropium Mcdonald [Spiriva] 1 puff IH DAILY inh 05/21/16 Acetaminophen W/ Codeine #3 [Tylenol # 3 -] 1 tab PO Q6H PRN #30 tablet MDD 4 Acetaminophen [Tylenol .Regular Strength -] 650 mg PO Q4H PRN #0 tablet Insulin Sliding Scale [Novolog Vial Sliding Scale -] 0 vial SQ ACHS units 12/16 Lactobacillus Acidophilus [Bacid -] 1 tab PO DAILY tab 12/16/16 Magnesium Citrate [Citroma -] 300 ml PO PRN PRN #1 bottle 12/16/16 Methylprednisolone Na Succ [Solu-Medrol -] 60 mg IVPB Q8H-IV #1 vial 12/16/16 Review of Systems - Review of Systems Able to Perform ROS?: Yes Comments:: 06/08/17 20:23 GENERAL/CONSTITUTIONAL: No fever or chills. No weakness. HEAD, EYES, EARS, NOSE AND THROAT: (+) Sore throat. No change in vision. No ear pain or discharge. CARDIOVASCULAR: (+) Chest pain and shortness of breath, dyspnea on exertion RESPIRATORY: (+) cough, wheezing. No hemoptysis. GASTROINTESTINAL: No nausea, vomiting, diarrhea or constipation. GENITOURINARY: No dysuria, frequency, or change in urination. MUSCULOSKELETAL: No joint or muscle swelling or pain. No neck or back pain. SKIN: No rash NEUROLOGIC: No headache, vertigo, loss of consciousness, or change in strength/ sensation. ENDOCRINE: No increased thirst. No abnormal weight change HEMATOLOGIC/LYMPHATIC: No anemia, easy bleeding, or history of blood clots. ALLERGIC/IMMUNOLOGIC: No hives or skin allergy. <Travon Barrios - Last Filed: 06/08/17 20:23> *Physical Exam - Vital Signs Last Vital Signs Temp Pulse Resp BP Pulse Ox 97.4 F L 84 20 169/137 98 06/08/17 19:23 06/08/17 19:23 06/08/17 19:23 06/08/17 19:23 06/08/17 19:23 - Physical Exam Comments: 06/08/17 20:24 GENERAL: (+) Obese. Awake, alert, and fully oriented. HEAD: No signs of trauma, normocephalic, atraumatic EYES: PERRLA, EOMI, sclera anicteric, conjunctiva clear ENT: Auricles normal inspection, hearing grossly normal, nares patent, oropharynx clear without exudates. Moist mucosa NECK: Normal ROM, supple, no lymphadenopathy, JVD, or masses LUNGS: (+) Tachypnic, very diminished breath sounds with end inspiratory wheezing. HEART: Regular rate and rhythm, normal S1 and S2, no murmurs, rubs or gallops, peripheral pulses normal and equal bilaterally. ABDOMEN: Soft, nontender, normoactive bowel sounds. No guarding, no rebound. No masses EXTREMITIES : Normal inspection, Normal range of motion, no edema. No clubbing or cyanosis. NEUROLOGICAL: Cranial nerves II through XII grossly intact. Normal speech, no focal sensorimotor deficits SKIN: Warm, Dry, normal turgor, no rashes or lesions noted <Travon Barrios - Last Filed: 06/08/17 20:23> - Vital Signs Last Vital Signs Temp Pulse Resp BP Pulse Ox 97.4 F L 84 20 169/137 98 06/08/17 19:23 06/08/17 19:23 06/08/17 19:23 06/08/17 19:23 06/08/17 19:23 <Tasia John - Last Filed: 06/08/17 21:39> Heart Score/ECG Review - ECG Intrepretation Comment:: 06/08/17 21:14 sinus at 77, L axis, incomplete RBBB, q waves inverior leads that are age indeterminate, abnl ekg <Tasia John - Last Filed: 06/08/17 21:39> ED Treatment Course - LABORATORY CBC & Chemistry Diagram: 06/08/17 20:50 06/08/17 20:50 <Tasia John - Last Filed: 06/08/17 21:39> Medical Decision Making - Medical Decision Making 06/08/17 20:12 a/p: 71yo male with hx of HTN, HLD, ASTHMA, COPD, DM with worsening sob, cough x 1 week -using nebulizer without relief since the weekend. -nonproductive cough -no f/c -chest tightness -Dr. Mclean pulraina -Dr. Leija pmd -Dr. Garcia cards -suspect copd/asthma exacerbation -pt with conversational dyspnea -last hospitalization was in november - last steroids was 06/08/17 21:20 re-eval: cxr clear lungs now with wheezing, but moving air. will continue with nebs will admit for COPD exacerbation discussed staying in the hospital with the patient - he is willing to stay for further treatment and eval 06/08/17 21:39 repeat vitals: 155/96, 80, 94%ra case discussed with Dr. Yuen - accepts pt to service <Tasia John - Last Filed: 06/08/17 21:39> *DC/Admit/Observation/Transfer - Attestations Scribe Attestion: 06/08/17 20:26 Documentation prepared by Travon Barrios, acting as medical or surgical instrument maker for Tasia John DO <Travon Barrios - Last Filed: 06/08/17 20:23> - Discharge Dispostion Admit: Yes - Attestations Physician Attestion: 06/08/17 21:22 I, Dr. Tasia John, DO, attest that this document has been prepared under my direction and personally reviewed by me in its entirety. I further attest, that it accurately reflects all work, treatment, procedures and medical decision -making performed by me. <Tasia John - Last Filed: 06/08/17 21:39> Diagnosis at time of Disposition: SOB (shortness of breath), COPD exacerbation - Discharge Dispostion Condition at time of disposition: Guarded - Referrals Referrals: Kelechi Leija MD [Primary Care Provider] - - Patient Instructions - Post Discharge Activity
[2017-06-08] MEDS ORDERED: MAGNESIUM SULF 50% (8.12 MEQ/2 ML-1 GM VIAL) ONE (20:20)
[2017-06-08] MEDS ORDERED: methylPREDNISolone NA SUCC 125 MG/2 ML VIAL ONE (20:21)
[2017-06-08 21:01] LABS: EOS % 4.9 % (0-4.5); HEMATOCRIT 38.3 % (35.4-49); LYMPH % 32.2 % (8-40); MCH 29.4 pg (25.7-33.7); MCHC 33.9 g/dl (32.0-35.9); MEAN CELL VOLUME 86.7 fl (80-96); MONO % 9.7 % (3.8-10.2); NEUT % 52.2 % (42.8-82.8); PLATELET COUNT 256 K/MM3 (134-434); RBC 4.42 M/mm3 (4.00-5.60); WHITE BLOOD COUNT 8.8 K/mm3 (4.0-10.0)
[2017-06-08 21:21] LABS: ALK PHOS 123 U/L (45-117); ANION GAP 6 (8-16); BILIRUBIN,TOTAL 0.6 mg/dL (0.2-1.0); BLOOD UREA NITROGEN 20 mg/dL (7-18); CHLORIDE 102 mmol/L (98-107); CO2 29 mmol/L (21-32); CREATININE 1.1 mg/dL (0.7-1.3); GLUCOSE,RANDOM 181 mg/dL (74-106); MAGNESIUM 1.7 mg/dL (1.8-2.4); POTASSIUM 4.6 mmol/L (3.5-5.1); SGOT/AST 16 U/L (15-37); SGPT/ALT 25 U/L (12-78); SODIUM 137 mmol/L (136-145); TOT PROT 7.9 g/dl (6.4-8.2)
--- NOTE | 2017-06-08 21:39 | PN ---
Teaching Attending Note Name of Resident: Meghana Ibarra ATTENDING PHYSICIAN STATEMENT I saw and evaluated the patient. I reviewed the resident's note and discussed the case with the resident. I agree with the resident's findings and plan as documented. SUBJECTIVE: 71 M with pmhx. of HTN, HLD, COPD, CAD with multiple stents and DM who presents with shortness of breath. States he has had chest tightness and BENITO. States he has been using his nebulizer more frequently. Notes associated cough with increased sputum volume. Last time he was hospitilized was in November. No chest pain or pressure currently and chest tightness is with coughing. No fevers or chills. No N, V, D. OBJECTIVE: Physical: VS: Vital Signs Period Temp Pulse Resp BP Sys/Streeter Pulse Ox Last 24 Hr 97.4 F 84 20 169/137 98 GEN: NAD, Resting in bed, AA0X3, Able to speak full sentences and not using accessory muscles HEENT: NCAT, PERRL, Throat without erythema or exudates CARD: RRR S1, S2 RESP: Bilateral expiratory wheezing ABD: BSx4, NTD to palpation EXT: - C/C/E CBCD WBC 8.8 K/mm3 (4.0-10.0) D 06/08/17 20:50 RBC 4.42 M/mm3 (4.00-5.60) 06/08/17 20:50 Hgb 13.0 GM/dL (11.7-16.9) 06/08/17 20:50 Hct 38.3 % (35.4-49) 06/08/17 20:50 MCV 86.7 fl (80-96) 06/08/17 20:50 MCHC 33.9 g/dl (32.0-35.9) 06/08/17 20:50 RDW 15.0 % (11.9-15.9) 06/08/17 20:50 Plt Count 256 K/MM3 (134-434) 06/08/17 20:50 MPV 8.0 fl (7.5-11.1) 06/08/17 20:50 CMP Sodium 137 mmol/L (136-145) 06/08/17 20:50 Potassium 4.6 mmol/L (3.5-5.1) 06/08/17 20:50 Chloride 102 mmol/L (98-107) 06/08/17 20:50 Carbon Dioxide 29 mmol/L (21-32) 06/08/17 20:50 Anion Gap 6 (8-16) L 06/08/17 20:50 BUN 20 mg/dL (7-18) H D 06/08/17 20:50 Creatinine 1.1 mg/dL (0.7-1.3) D 06/08/17 20:50 Creat Clearance w eGFR > 60 (>60) 06/08/17 20:50 Random Glucose 181 mg/dL (74-106) H 06/08/17 20:50 Calcium 9.0 mg/dL (8.5-10.1) 06/08/17 20:50 Total Bilirubin 0.6 mg/dL (0.2-1.0) 06/08/17 20:50 AST 16 U/L (15-37) 06/08/17 20:50 ALT 25 U/L (12-78) 06/08/17 20:50 Alkaline Phosphatase 123 U/L (45-117) H D 06/08/17 20:50 Total Protein 7.9 g/dl (6.4-8.2) 06/08/17 20:50 Albumin 4.0 g/dl (3.4-5.0) 06/08/17 20:50 CARDIAC ENZYMES Creatine Kinase 242 IU/L (39-308) 06/08/17 20:50 Troponin I 0.02 ng/ml (0.00-0.05) 06/08/17 20:50 Ambulatory Orders Ambulatory Orders Aspirin [ASA -] 81 mg PO DAILY #60 tab.chew 07/19/14 Albuterol 2.5/Ipratropium 0.5 [Duoneb -] 1 neb IH QID PRN #50 vial.neb. Albuterol Sulfate Inhaler - [Ventolin HFA Inhaler -] 2 inh IH Q4H #1 inh Atorvastatin Ca [Lipitor] 40 mg PO HS #30 tablet 07/26/15 Budesonide/Formeterol Fumarate [SYMBICORT 160/4.5mcg -] 2 inh IH BID #1 inhaler 07/26/15 Ranitidine [Zantac -] 150 mg PO DAILY #30 tablet 07/26/15 Glipizide [Glucotrol -] 5 mg PO TIDAC #90 tablet 12/26/15 metFORMIN HCL [Glucophage -] 1,000 mg PO BID@0700,1630 #60 tablet 12/26/15 Albuterol 0.083% Nebulizer Clare [Ventolin 0.083% Nebulizer Soln -] 1 neb NEB Q4H PRN 02/19/16 Clopidogrel Bisulfate [Plavix -] 75 mg PO DAILY #30 tablet 02/20/16 Metoprolol Succinate [Toprol XL -] 25 mg PO HS 02/20/16 Nifedipine ER [Procardia XL -] 60 mg PO HS 02/20/16 Valsartan [Diovan] 80 mg PO HS 02/20/16 Sennosides [Senna -] 1 tab PO HS tablet 05/21/16 Tiotropium [place] [Spiriva] 1 puff IH DAILY inh 05/21/16 Methylprednisolone Na Succ [Solu-Medrol -] 60 mg IVPB Q8H-IV #1 vial 12/16/16 Meloxicam 7.5 mg PO DAILY 06/08/17 CXR: No acute process EKG: SR 77, L axis, incomplete RBBB, q waves inverior leads that are age indeterminate, abnl ekg ECHO 12/28: EF 55, Mild , Trace MR ASSESSMENT AND PLAN: 71 M with pmhx. of HTN, HLD, COPD, CAD with multiple stents and DM who presents with shortness of breath, being admitted for Acute Exacerbation of COPD 1.) Acute Exacerbation of COPD - DuoNebs ATC/PRN - Solumedrol 40 q12 - C/W Symbicort/Spiriva - Keep 02>90 - Ceftriaxone- - Pulm. Consult 2.) CAD hx.S/P S- Chest Tightness - Tightness most likely due to COPD - Trend Trop/EKG - C/W Home meds in AM 3.) DM - FS - RAISS 4.) Prolonged Qtc - Check Mg 2+, keep >2.0 - Keep K>4.0 - Avoid QtC prolonging agents 5.) HLD - C/W Statin 6.) HTN - C/W Home meds 7.) Dvt Ppx - Heparin [address] in Med-Tele
[2017-06-08] MEDS ORDERED: ALBUTEROL SO4 0.083% IH SOL 2.5 MG/3 ML VIAL.NEB. NEB ONE ×2 (21:45→22:01)
[2017-06-08] MEDS ORDERED: ALBUTEROL SO4 2.5/IPRATROPIUM 0.5 INH SOL 3 ML VIAL.NEB. NEB SCH (22:30)
[2017-06-08] MEDS ORDERED: ALBUTEROL SO4 0.083% IH SOL 2.5 MG/3 ML VIAL.NEB. NEB PRN (22:30)
--- NOTE | 2017-06-08 22:46 | HP ---
CHIEF COMPLAINT: SOB x 1 week PCP: Dr. Leija HISTORY OF PRESENT ILLNESS: 71 y/o M with PMH HTN, HLD, CAD (with 4 stents- two newest placed in Nov,Dec 2016), COPD, asthma (does not know baseline peak flow; not on home O2), s/p resection parotid neoplasm, who presents to the ED c/o SOB over the past week. As per patient, he developed gradually worsening SOB, wheezing, and chest tightness over the past week. Pt states that he ran out of his symbicort last week. At baseline, pt is able to ambulate 20-30 steps before developing SOB. Today, he was unable to catch his breath with a few steps, and needed to come to the ED via wheelchair. During this time, pt also endorses dry mouth, productive cough and feels "unable to cough the mucus up." As per ED staff, patient was unable to adequately move air and was unable to speak without becoming SOB. During H&P, pt much improved after receiving neb tx, solumedrol 125mg. Denies HENDERSON, fever, chills, chest pain or pressure, or changes in urinary or bowel function. ER course was notable for: (1) nebs x 3 (2) mg sulfate 1g IVPB x 1 (3) solumedrol 125mg IVPB x 1 Recent Travel: none PAST MEDICAL HISTORY: as above PAST SURGICAL HISTORY: s/p resection parotid neoplasm, CAD (with 4 stents- two newest placed in Nov,Dec 2016) Social History: lives at home with daughter and grandchild. Smoking: quit smoking 2-3 yrs ago. had smoked 1 pack a week for "many years" Alcohol: stopped drinking 2 yrs ago. used to drink socially Drugs: cocaine use as a teenager Family History: denies Allergies oxycodone Adverse Reaction (Intermediate, Verified 06/08/17 19:22) HALLUCINATIONS PER PT HOME MEDICATIONS: Home Medications Medication Instructions Recorded Aspirin [ASA -] 81 mg PO DAILY #60 tab.chew 07/19/14 Albuterol 2.5/Ipratropium 0.5 1 neb IH QID PRN #50 vial.neb. 07/26/15 [Duoneb -] Albuterol Sulfate Inhaler - 2 inh IH Q4H #1 inh 07/26/15 [Ventolin HFA Inhaler -] Atorvastatin Ca [Lipitor] 40 mg PO HS #30 tablet 07/26/15 Budesonide/Formeterol Fumarate 2 inh IH BID #1 inhaler 07/26/15 [SYMBICORT 160/4.5mcg -] Ranitidine [Zantac -] 150 mg PO DAILY #30 tablet 07/26/15 Glipizide [Glucotrol -] 5 mg PO TIDAC #90 tablet 12/26/15 metFORMIN HCL [Glucophage -] 1,000 mg PO BID@0700,1630 #60 12/26/15 tablet Albuterol 0.083% Nebulizer Clare 1 neb NEB Q4H PRN 02/19/16 [Ventolin 0.083% Nebulizer Soln -] Clopidogrel Bisulfate [Plavix -] 75 mg PO DAILY #30 tablet 02/20/16 Metoprolol Succinate [Toprol XL -] 25 mg PO HS 02/20/16 Nifedipine ER [Procardia XL -] 60 mg PO HS 02/20/16 Valsartan [Diovan] 80 mg PO HS 02/20/16 Sennosides [Senna -] 1 tab PO HS tablet 05/21/16 Tiotropium [place] [Spiriva] 1 puff IH DAILY inh 05/21/16 Methylprednisolone Na Succ 60 mg IVPB Q8H-IV #1 vial 12/16/16 [Solu-Medrol -] Meloxicam 7.5 mg PO DAILY 06/08/17 REVIEW OF SYSTEMS CONSTITUTIONAL: Absent: fever, chills, diaphoresis, generalized weakness, malaise, loss of appetite, weight change HEENT: Absent: rhinorrhea, nasal congestion, throat pain, throat swelling, difficulty swallowing, mouth swelling, ear pain, eye pain, visual changes CARDIOVASCULAR: Absent: chest pain, syncope, palpitations, irregular heart rate, lightheadedness , peripheral edema RESPIRATORY: +cough, SOB, BENITO, wheezing Absent: orthopnea, stridor, hemoptysis GASTROINTESTINAL: Absent: abdominal pain, abdominal distension, nausea, vomiting, diarrhea, constipation, melena, hematochezia GENITOURINARY: Absent: dysuria, frequency, urgency, hesitancy, hematuria, flank pain, genital pain MUSCULOSKELETAL: Absent: myalgia, arthralgia, joint swelling, back pain, neck pain SKIN: Absent: rash, itching, pallor HEMATOLOGIC/IMMUNOLOGIC: Absent: easy bleeding, easy bruising, lymphadenopathy, frequent infections ENDOCRINE: Absent: unexplained weight gain, unexplained weight loss, heat intolerance, cold intolerance NEUROLOGIC: Absent: headache, focal weakness or paresthesias, dizziness, unsteady gait, seizure, mental status changes, bladder or bowel incontinence PSYCHIATRIC: Absent: anxiety, depression, suicidal or homicidal ideation, hallucinations. PHYSICAL EXAMINATION Vital Signs 06/08/17 06/08/17 19:23 21:54 Temperature 97.4 F L Pulse Rate 84 Pulse Rate [ 76 Apical] Respiratory 20 20 Rate Blood Pressure 169/137 Blood Pressure 155/96 [Arm] O2 Sat by Pulse 98 100 Oximetry (%) GENERAL: Sitting comfortably, mildly SOB during H&P. Awake, alert, and fully oriented, in no acute distress. HEAD: Normal with no signs of trauma. EYES: Pupils equal, round and reactive to light, extraocular movements intact, sclera anicteric, conjunctiva clear. EARS, NOSE, THROAT: Ears normal, nares patent, oropharynx clear. Moist mucous membranes. NECK: Normal range of motion, supple. +R SCM TTP LUNGS: wheezing appreciated in posterior lung muller. no crackles. mild accessory muscle use. HEART: Regular rate and rhythm, normal S1 and S2 without murmur, rub or gallop. ABDOMEN: Soft, obese, nontender, not distended, normoactive bowel sounds, no guarding, no rebound, no masses. LOWER EXTREMITIES: 2+ posterior tibial pulses, warm, well-perfused. Diffuse TTP - calves (has chronically). No peripheral edema. NEUROLOGICAL: Cranial nerves II-XII intact. Laboratory Results - last 24 hr 06/08/17 06/08/17 06/08/17 20:50 20:50 20:50 WBC 8.8 D RBC 4.42 Hgb 13.0 Hct 38.3 MCV 86.7 MCH 29.4 MCHC 33.9 RDW 15.0 Plt Count 256 MPV 8.0 Neutrophils % 52.2 D Lymphocytes % 32.2 D Monocytes % 9.7 Eosinophils % 4.9 H D Basophils % 1.0 D Sodium Alkaline Phosphatase Creatine Kinase 242 Creatine Kinase Index 3.8 CK-MB (CK-2) 9.369 H Troponin I 0.02 B-Natriuretic Peptide 305.07 H Total Protein Albumin 06/08/17 20:50 MPV Basophils % Sodium 137 Potassium 4.6 Chloride 102 Carbon Dioxide 29 Anion Gap 6 L BUN 20 H D Creatinine 1.1 D Creat Clearance w eGFR > 60 Random Glucose 181 H Calcium 9.0 Magnesium 1.7 L D Total Bilirubin 0.6 AST 16 ALT 25 Alkaline Phosphatase 123 H D Creatine Kinase Troponin I B-Natriuretic Peptide Total Protein 7.9 Albumin 4.0 TESTS CXR: without infiltrates or effusions EKG: NSR, LAD, incomplete RBBB, q waves - age undetermined. Qtc 516ms ASSESSMENT/PLAN: 71 y/o M with PMH HTN, HLD, CAD (with 4 stents- two newest placed in Nov, Dec 2016), COPD, asthma (does not know baseline peak flow; not on home O2), s/p resection parotid neoplasm, who presents to the ED c/o SOB over the past week. Pt admitted to telemetry for acute COPD exacerbation. #Acute COPD exacerbation -Pt improved in ED after 3 neb tx, mg sulfate, solumedrol 125 -Continue symbicort 2 puffs IH BID, spiriva 1 puff IH BID -Ventolin q4h PRN -Solumedrol 40mg IVPB BID -Pulm consult- Dr. Mclean -Maintain sp02>90 -Continue NC 02 -Will start on rocephin 1g IVPB qd - since Qtc prolonged, will avoid zithromax #QT prolongation -QTC 516ms -Avoid QT prolonging agents #CAD (with 4 stents) -Continue aspirin 81mg qd -Clopidogrel 75mg PO qd -Trend trops q6h -Initial trop (-) -Continue to follow EKG #HTN- uncontrolled -Continue metoprolol succinate 25mg PO BID -Nifedipine 60mg PO qd -Valsartan 80mg PO qHS #HLD -Continue lipitor 40mg PO HS #DM -ISS ACHS -BGM #F/E/N -no need for IVF at this time -Continue to monitor electrolytes -Sodium controlled, diabetic diet #PPX DVT: Hep SQ 5000 TID #Dispo telemetry monitoring Visit type - Emergency Visit Emergency Visit: Yes ED Registration Date: 06/08/17 Care time: The patient presented to the Emergency Department on the above date and was hospitalized for further evaluation of their emergent condition. - New Patient This patient is new to me today: Yes Date on this admission: 06/09/17 - Critical Care Critical Care patient: No Hospitalist Screening - Colonoscopy Questionnaire Colonoscopy Questionnaire: Colonoscopy Questionnaire - Patient: 50 - 75 years old and never had a screening colonoscopy: Unknown History of colon or rectal polyps, or CA: Unknown History of IBD, Crohn's disease or UC: Unknown History of abdominal radiation therapy as a child: Unknown - Relative: 1 with colon or rectal CA, or polyps at age 60 or younger: Unknown Colon or rectal CA diagnosed at age 45 or younger: Unknown Multiple relatives with colon or rectal CA: Unknown - Outcome: Screening Result: Negative Screen
[2017-06-08] MEDS ORDERED: CEFTRIAXONE 1 GM/50 ML BAG ONE (23:21)
[2017-06-08] MEDS: TIOTROPIUM BROMIDE 18 MCG CAPSULES IH SCH (23:23)
[2017-06-08] MEDS: CEFTRIAXONE 1 G/50 ML PREMIX 50 ML IVPB SCH (23:24)
[2017-06-08] MEDS: metoPROLOL SUCCINATE 25 MG TAB.SR.24H (FP) PO SCH (23:24)
[2017-06-08] MEDS: VALSARTAN 80 MG TABLET (UD) PO SCH (23:25)
[2017-06-08] MEDS: NIFEdipine E.R 60 MG TABLET (UD) PO SCH (23:25)
[2017-06-08] MEDS: BUDESONIDE/FORMETEROL FUMARATE 160/4.5 mcg INHALER IH SCH (23:32)
[2017-06-09] MEDS: HEPARIN NA (PORCINE) 5,000 UNITS/ML 1ML VIAL SQ SCH ×4 (00:46→21:30)
[2017-06-09] MEDS ORDERED: HEPARIN NA (PORCINE) 5,000 UNITS/ML 1ML VIAL ONE ×2 (00:47→06:41)
[2017-06-09 01:34] LABS: ARTERIAL BLD GAS O2 SATURATION 97.6 % (90-98.9); ARTERIAL BLOOD GAS BASE EXCESS -2.1 meq/l (-2-2); ARTERIAL BLOOD GAS PCO2 37.5 mmHg (35-45); ARTERIAL BLOOD GAS PO2 94.5 mmHg (70-100); ARTERIAL BLOOD GAS pH 7.39 (7.35-7.45)
[2017-06-09 01:40] LABS: ALLENS TEST POSITIVE
[2017-06-09 08:48] LABS: BASO % 0.3 % (0-2.0); HEMATOCRIT 35.8 % (35.4-49); HEMOGLOBIN 11.9 GM/dL (11.7-16.9); LYMPH % 12.4 % (8-40); MCH 28.6 pg (25.7-33.7); MCHC 33.1 g/dl (32.0-35.9); MEAN CELL VOLUME 86.3 fl (80-96); MEAN PLT VOLUME 8.2 fl (7.5-11.1); MONO % 0.7 % (3.8-10.2); NEUT % 86.6 % (42.8-82.8); PLATELET COUNT 256 K/MM3 (134-434); RBC 4.15 M/mm3 (4.00-5.60); RDW 15.2 % (11.9-15.9); WHITE BLOOD COUNT 11.7 K/mm3 (4.0-10.0)
[2017-06-09 09:08] LABS: ANION GAP 11 (8-16); BLOOD UREA NITROGEN 21 mg/dL (7-18); CALCIUM 8.4 mg/dL (8.5-10.1); CHLORIDE 98 mmol/L (98-107); CO2 21 mmol/L (21-32); CREATININE 1.2 mg/dL (0.7-1.3); MAGNESIUM 1.8 mg/dL (1.8-2.4); PHOSPHOROUS 4.4 mg/dL (2.5-4.9); POTASSIUM 4.6 mmol/L (3.5-5.1); SODIUM 130 mmol/L (136-145)
[2017-06-09] MEDS: TIOTROPIUM BROMIDE 18 MCG CAPSULES IH SCH (09:15)
[2017-06-09] MEDS: BUDESONIDE/FORMETEROL FUMARATE 160/4.5 mcg INHALER IH SCH ×2 (09:16→21:33)
[2017-06-09] MEDS: CLOPIDOGREL BISULFATE 75 MG TABLET (FP) PO SCH (09:17)
[2017-06-09] MEDS: ASPIRIN 81 MG CHEWABLE TABLETS PO SCH (09:17)
[2017-06-09] MEDS: RANITIDINE HCL 150 MG TABLET (FP) PO SCH (09:18)
[2017-06-09] MEDS ORDERED: CEFTRIAXONE 1 GM/50 ML BAG ONE (09:20)
[2017-06-09] MEDS ORDERED: methylPREDNISolone NA SUCC 40 MG/1 ML VIAL ONE (09:21)
[2017-06-09 09:28] LABS: GLUCOSE,RANDOM 374 mg/dL (74-106)
[2017-06-09] MEDS: CEFTRIAXONE 1 G/50 ML PREMIX 50 ML IVPB SCH (09:29)
[2017-06-09] MEDS ORDERED: methylPREDNISolone NA SUCC 40 MG/1 ML VIAL IVPB SCH (10:00)
[2017-06-09] MEDS: INSULIN SLIDING SCALE (NOVOLOG) 1 VIAL SQ SCH ×4 (10:53→21:33)
[2017-06-09] MEDS ORDERED: INSULIN (NOVOLOG) ASPART 100 UNITS/ML 10ML VIAL ONE (10:56)
--- NOTE | 2017-06-09 11:06 | PN ---
<Jaguar Bella - Last Filed: 06/09/17 16:12> Physical Exam: SUBJECTIVE: Patient seen and examined No acute events overnight. Patient complains of wheezing and cough with sputum production. Denies fever, chills, chest pain, lower extremity edema OBJECTIVE: Vital Signs Period Temp Pulse Resp BP Sys/Streeter Pulse Ox Last 24 Hr 97.4 F-98.6 F 76-89 18-20 139-169/85-137 96-100 GENERAL: The patient is awake, alert, and fully oriented, in no acute distress. HEENT: Normal with no signs of trauma, EOMI, sclera anicteric, conjunctiva clear. No Ptosis. Oropharynx clear. MMM. NECK: Trachea midline, full range of motion, supple. LUNGS: Breath sounds equal, Bilateral expiratory wheezing HEART: Regular rate and rhythm, S1, S2 without murmur, rub or gallop. ABDOMEN: Soft, nontender, nondistended, normoactive bowel sounds, no guarding, no rebound, no hepatosplenomegaly, no masses. EXTREMITIES: 2+ pulses, warm, well-perfused, no edema. NEUROLOGICAL: Cranial nerves II through XII grossly intact. Normal speech, gait not observed. PSYCH: Normal mood, normal affect. SKIN: Warm, dry, normal turgor, no rashes or lesions noted Laboratory Results - last 24 hr 06/08/17 06/08/17 06/08/17 20:50 20:50 20:50 WBC 8.8 D RBC 4.42 Hgb 13.0 Hct 38.3 MCV 86.7 MCH 29.4 MCHC 33.9 RDW 15.0 Plt Count 256 MPV 8.0 Neutrophils % 52.2 D Lymphocytes % 32.2 D Monocytes % 9.7 Eosinophils % 4.9 H D Basophils % 1.0 D Anticoagulation Therapy Puncture Site ABG pH ABG pCO2 at Pt Temp ABG pO2 at Pt Temp ABG HCO3 ABG O2 Sat (Measured) ABG O2 Content ABG Base Excess Wesley Test O2 Delivery Device Oxygen Flow Rate Vent Mode Vent Rate Mechanical Rate Pressure Support Vent Sodium Potassium Chloride Carbon Dioxide Anion Gap BUN Creatinine Creat Clearance w eGFR POC Glucometer Random Glucose Calcium Phosphorus Magnesium Total Bilirubin AST ALT Alkaline Phosphatase Creatine Kinase 242 Creatine Kinase Index 3.8 CK-MB (CK-2) 9.369 H Troponin I 0.02 B-Natriuretic Peptide 305.07 H Total Protein Albumin 06/08/17 06/09/17 06/09/17 20:50 01:12 07:50 WBC 11.7 H D RBC 4.15 Hgb 11.9 Hct 35.8 MCV 86.3 MCH 28.6 MCHC 33.1 RDW 15.2 Plt Count 256 MPV 8.2 Neutrophils % 86.6 H D Lymphocytes % 12.4 D Monocytes % 0.7 L D Eosinophils % 0.0 D Basophils % 0.3 Anticoagulation Therapy No Result Required. Puncture Site Right radial ABG pH 7.39 ABG pCO2 at Pt Temp 37.5 ABG pO2 at Pt Temp 94.5 D ABG HCO3 22.0 ABG O2 Sat (Measured) 97.6 ABG O2 Content 16.8 ABG Base Excess -2.1 L Wesley Test Positive O2 Delivery Device N/c Oxygen Flow Rate 4l Vent Mode No Result Required. Vent Rate No Result Required. Mechanical Rate No Result Required. Pressure Support Vent No Result Required. Sodium 137 Potassium 4.6 Chloride 102 Carbon Dioxide 29 Anion Gap 6 L BUN 20 H D Creatinine 1.1 D Creat Clearance w eGFR > 60 POC Glucometer Random Glucose 181 H Calcium 9.0 Phosphorus Magnesium 1.7 L D Total Bilirubin 0.6 AST 16 ALT 25 Alkaline Phosphatase 123 H D Creatine Kinase Creatine Kinase Index CK-MB (CK-2) Troponin I B-Natriuretic Peptide Total Protein 7.9 Albumin 4.0 06/09/17 06/09/17 06/09/17 07:50 07:50 10:16 WBC RBC Hgb Hct MCV MCH MCHC RDW Plt Count MPV Neutrophils % Lymphocytes % Monocytes % Eosinophils % Basophils % Anticoagulation Therapy Puncture Site ABG pH ABG pCO2 at Pt Temp ABG pO2 at Pt Temp ABG HCO3 ABG O2 Sat (Measured) ABG O2 Content ABG Base Excess [place] Test O2 Delivery Device Oxygen Flow Rate Vent Mode Vent Rate Mechanical Rate Pressure Support Vent Sodium 130 L Potassium 4.6 Chloride 98 Carbon Dioxide 21 D Anion Gap 11 BUN 21 H Creatinine 1.2 Creat Clearance w eGFR POC Glucometer > 400 Random Glucose 374 H* D Calcium 8.4 L Phosphorus 4.4 Magnesium 1.8 Total Bilirubin AST ALT Alkaline Phosphatase Creatine Kinase Creatine Kinase Index CK-MB (CK-2) Troponin I < 0.02 B-Natriuretic Peptide Total Protein Albumin Active Medications Generic Name Dose Route Start Last Admin Trade Name Freq PRN Reason Stop Dose Admin Albuterol Sulfate 1 amp 06/08/17 22:30 Ventolin 0.083% Nebulizer Soln - NEB Q4H PRN ASTHMA Aspirin 81 mg 06/09/17 10:00 06/09/17 09:17 Asa - PO 81 mg DAILY DANITA Administration Atorvastatin Calcium 40 mg 06/09/17 22:00 Lipitor - PO HS DANITA Budesonide/Formoterol Fumarate 2 puff 06/08/17 22:30 06/09/17 09:16 Symbicort 160/4.5mcg - IH 2 puff BID DANITA Administration Clopidogrel Bisulfate 75 mg 06/09/17 10:00 06/09/17 09:17 Plavix - PO 75 mg DAILY DANITA Administration Heparin Sodium (Porcine) 5,000 unit 06/09/17 00:15 06/09/17 06:40 Heparin - SQ 5,000 unit TID DANITA Administration CEFTRIAXONE 1 G/50 ML PREMIX 50 mls @ 100 mls/hr 06/08/17 23:00 06/09/17 09: 29 Ceftriaxone 1 Gm-D5w Bag IVPB 100 mls/hr DAILY DANITA Administration Insulin Aspart 1 vial 06/09/17 07:00 06/09/17 10:53 Novolog Vial Sliding Scale - SQ 10 unit ACHS DANITA Administration Protocol Methylprednisolone Sodium Succinate 40 mg 06/09/17 10:00 06/09/17 09:29 Solu-Medrol - IVPB 40 mg BID DANITA Administration Metoprolol Succinate 25 mg 06/08/17 22:30 06/08/17 23:24 Toprol Xl - PO 25 mg HS DANITA Administration Nifedipine 60 mg 06/08/17 22:30 06/08/17 23:25 Procardia Xl - PO 60 mg HS DANITA Administration Ranitidine HCl 150 mg 06/09/17 10:00 06/09/17 09:18 Zantac - PO 150 mg DAILY DANITA Administration Senna 1 tab 06/09/17 22:00 Senna - PO HS DANITA Tiotropium [place] 1 puff 06/08/17 22:30 06/09/17 09:15 Spiriva - IH 1 puff DAILY DANITA Administration Valsartan 80 mg 06/08/17 22:30 06/08/17 23:25 Diovan - PO 80 mg HS DANITA Administration ASSESSMENT/PLAN: 71 y/o M with PMH HTN, HLD, CAD (with 4 stents- two newest placed in Nov, Dec 2016), COPD, asthma (does not know baseline peak flow; not on home O2), s/p resection parotid neoplasm, who presents to the ED c/o SOB over the past week. Pt admitted to telemetry for acute COPD exacerbation. #Acute COPD exacerbation -Continue symbicort 2 puffs IH BID, spiriva 1 puff IH BID -Nebs prn -Solumedrol 40mg IVPB BID -Sputum culture, rsv antigen, urine antigen, influenza swab -Pulm consult- Dr. Mclean -Maintain sp02>90 -Continue NC 02 #QT prolongation -QTC 516ms -Avoid QT prolonging agents #CAD (with 4 stents) -Aspirin 81mg qd -Clopidogrel 75mg PO qd #HTN- uncontrolled -Metoprolol succinate 25mg PO BID -Nifedipine 60mg PO qd -Valsartan 80mg PO qHS #HLD -Lipitor 40mg PO HS #DM -ISS ACHS -BGM ACHS -Sugars elevated, will monitor throughout day and potentially start long acting #F/E/N -no need for IVF at this time -Continue to monitor electrolytes -Sodium controlled, diabetic diet #PPX DVT: Hep SQ 5000 TID #Dispo Telemetry monitoring Visit type - Emergency Visit Emergency Visit: Yes ED Registration Date: 06/08/17 Care time: The patient presented to the Emergency Department on the above date and was hospitalized for further evaluation of their emergent condition. - New Patient This patient is new to me today: Yes Date on this admission: 06/09/17 - Critical Care Critical Care patient: No <Jen Marvin - Last Filed: 06/09/17 18:14> Physical Exam: Patient presented with Copd exacerbation. C/O having cough. denies being around any body who is sick. Vital Signs Temperature 98.1 F 06/09/17 14:43 Pulse Rate 92 H 06/09/17 14:43 Respiratory Rate 17 06/09/17 14:43 Blood Pressure 158/96 06/09/17 14:43 O2 Sat by Pulse Oximetry (%) 99 06/09/17 14:43 CBCD WBC 11.7 K/mm3 (4.0-10.0) H D 06/09/17 07:50 RBC 4.15 M/mm3 (4.00-5.60) 06/09/17 07:50 Hgb 11.9 GM/dL (11.7-16.9) 06/09/17 07:50 Hct 35.8 % (35.4-49) 06/09/17 07:50 MCV 86.3 fl (80-96) 06/09/17 07:50 MCHC 33.1 g/dl (32.0-35.9) 06/09/17 07:50 RDW 15.2 % (11.9-15.9) 06/09/17 07:50 Plt Count 256 K/MM3 (134-434) 06/09/17 07:50 MPV 8.2 fl (7.5-11.1) 06/09/17 07:50 CMP Sodium 130 mmol/L (136-145) L 06/09/17 07:50 Potassium 4.6 mmol/L (3.5-5.1) 06/09/17 07:50 Chloride 98 mmol/L (98-107) 06/09/17 07:50 Carbon Dioxide 21 mmol/L (21-32) D 06/09/17 07:50 Anion Gap 11 (8-16) 06/09/17 07:50 BUN 21 mg/dL (7-18) H 06/09/17 07:50 Creatinine 1.2 mg/dL (0.7-1.3) 06/09/17 07:50 Creat Clearance w eGFR > 60 (>60) 06/08/17 20:50 Random Glucose 374 mg/dL (74-106) H* D 06/09/17 07:50 Calcium 8.4 mg/dL (8.5-10.1) L 06/09/17 07:50 Total Bilirubin 0.6 mg/dL (0.2-1.0) 06/08/17 20:50 AST 16 U/L (15-37) 06/08/17 20:50 ALT 25 U/L (12-78) 06/08/17 20:50 Alkaline Phosphatase 123 U/L (45-117) H D 06/08/17 20:50 Total Protein 7.9 g/dl (6.4-8.2) 06/08/17 20:50 Albumin 4.0 g/dl (3.4-5.0) 06/08/17 20:50 CARDIAC ENZYMES Creatine Kinase 242 IU/L (39-308) 06/08/17 20:50 Troponin I < 0.02 ng/ml (0.00-0.05) 06/09/17 07:50 Current Medications Generic Name Dose Route Start Last Admin Trade Name Freq PRN Reason Stop Dose Admin Acetaminophen 650 mg 06/09/17 15:04 06/09/17 15:45 Tylenol - PO 650 mg Q4H PRN Administration HEADACHE Albuterol Sulfate 1 amp 06/08/17 22:30 Ventolin 0.083% Nebulizer Soln - NEB Q4H PRN ASTHMA Albuterol/Ipratropium 1 amp 06/09/17 16:00 06/09/17 15:35 Duoneb - NEB 1 amp RQID DANITA Administration Aspirin 81 mg 06/09/17 10:00 06/09/17 09:17 Asa - PO 81 mg DAILY DANITA Administration Atorvastatin Calcium 40 mg 06/09/17 22:00 Lipitor - PO HS DANITA Budesonide/Formoterol Fumarate 2 puff 06/08/17 22:30 06/09/17 09:16 Symbicort 160/4.5mcg - IH 2 puff BID DANITA Administration Clopidogrel Bisulfate 75 mg 06/09/17 10:00 06/09/17 09:17 Plavix - PO 75 mg DAILY DANITA Administration Heparin Sodium (Porcine) 5,000 unit 06/09/17 00:15 06/09/17 14:19 Heparin - SQ 5,000 unit TID DANITA Administration Insulin Aspart 1 vial 06/09/17 07:00 06/09/17 10:53 Novolog Vial Sliding Scale - SQ 10 unit ACHS DANITA Administration Protocol Methylprednisolone Sodium Succinate 40 mg 06/09/17 15:00 06/09/17 15:46 Solu-Medrol - IVPUSH 40 mg Q6H-IV DANITA Administration Metoprolol Succinate 25 mg 06/08/17 22:30 06/08/17 23:24 Toprol Xl - PO 25 mg HS DANITA Administration Nifedipine 60 mg 06/08/17 22:30 06/08/17 23:25 Procardia Xl - PO 60 mg HS DANITA Administration Ranitidine HCl 150 mg 06/09/17 10:00 06/09/17 09:18 Zantac - PO 150 mg DAILY DANITA Administration Senna 1 tab 06/09/17 22:00 Senna - PO HS DANITA Valsartan 80 mg 06/08/17 22:30 06/08/17 23:25 Diovan - PO 80 mg HS DANITA Administration Home Medications Medication Instructions Recorded Aspirin [ASA -] 81 mg PO DAILY #60 tab.chew 07/19/14 Albuterol 2.5/Ipratropium 0.5 1 neb IH QID PRN #50 vial.neb. 07/26/15 [Duoneb -] Albuterol Sulfate Inhaler - 2 inh IH Q4H #1 inh 07/26/15 [Ventolin HFA Inhaler -] Atorvastatin Ca [Lipitor] 40 mg PO HS #30 tablet 07/26/15 Budesonide/Formeterol Fumarate 2 inh IH BID #1 inhaler 07/26/15 [SYMBICORT 160/4.5mcg -] Ranitidine [Zantac -] 150 mg PO DAILY #30 tablet 07/26/15 Glipizide [Glucotrol -] 5 mg PO TIDAC #90 tablet 12/26/15 metFORMIN HCL [Glucophage -] 1,000 mg PO BID@0700,1630 #60 12/26/15 tablet Albuterol 0.083% Nebulizer [place] 1 neb NEB Q4H PRN 02/19/16 [Ventolin 0.083% Nebulizer Soln -] Clopidogrel Bisulfate [Plavix -] 75 mg PO DAILY #30 tablet 02/20/16 Metoprolol Succinate [Toprol XL -] 25 mg PO HS 02/20/16 Nifedipine ER [Procardia XL -] 60 mg PO HS 02/20/16 Valsartan [Diovan] 80 mg PO HS 02/20/16 Sennosides [Senna -] 1 tab PO HS tablet 05/21/16 Tiotropium [place] [Spiriva] 1 puff IH DAILY inh 05/21/16 Methylprednisolone Na Succ 60 mg IVPB Q8H-IV #1 vial 12/16/16 [Solu-Medrol -] Meloxicam 7.5 mg PO DAILY 06/08/17 PE: Chest: Decreased with BS Bl, Poor air entry on the left Lung. CVS: S1S2 positive, No murmur appreciated. rest per resident's note. A/P: Patient is a 71 y/o M with PMH HTN, HLD, CAD x 4 stents ,( 2 were placed in Nov , Dec 2016), COPD not on home O2 , s/p resection parotid neoplasm, who presents to the ED c/o SOB over the past week. Pt admitted to telemetry for acute COPD exacerbation. #Acute COPD exacerbation will increase is Solu Medrol 40mg IV q6h, continue the rest of his medication. #QT prolongation: -QTC 516ms will repeat EKG , will hold off on ZIthromax for now since will worsen the QT, will correct his electrolytes. repeat mag in am , ekg. #CAD (with 4 stents) continue Aspirin /Plavix #HTN- uncontrolled continue home meds. #HLD Lipitor 40mg PO HS #DM continue with sS ACHS DVT Px: Heparin.
--- NOTE | 2017-06-09 11:40 | EKG ---
Test Reason : Blood Pressure : / mmHG Vent. Rate : 077 BPM Atrial Rate : 077 BPM P-R Int : 178 ms QRS Dur : 108 ms QT Int : 456 ms P-R-T Axes : 064 -49 094 degrees QTc Int : 516 ms NORMAL SINUS RHYTHM LEFT AXIS DEVIATION INCOMPLETE RIGHT BUNDLE BRANCH BLOCK NONSPECIFIC ST AND T WAVE ABNORMALITY PROLONGED QT ABNORMAL ECG WHEN COMPARED WITH ECG OF 10-DEC-2016 11:28, PREMATURE ATRIAL COMPLEXES ARE NO LONGER PRESENT QT HAS LENGTHENED Confirmed by ARIANA GUERRA MD ([id number]) on 06/09/2017 11:40:16 AM Referred By: Confirmed By:ARIANA GUERRA MD
[2017-06-09] MEDS ORDERED: MAGNESIUM OXIDE 400 MG TABLET (FP) PO ONE ×2 (12:00→21:15)
[2017-06-09 14:44] VITALS: BMI 30.4
--- NOTE | 2017-06-09 14:46 | CON.PULM ---
Consult Consult Specialty:: PULMONARY Referred by:: Dr. John Reason for Consultation:: shortness of breath - History of Present Illness Chief Complaint: shortness of breath History of Present Illness: 71yo male with h/o HTN, DM, hyperlipidemia, COPD, CAD s/p stents who was admitted with worsening shortness of breath. Denies chest pain or palpitations. No fevers, chills or sweats. No sick contacts or recent travel. Reports a nonproductive cough and wheezing. Compliant with inhalers and nebulizers. Still some smoking with electronic cigarettes. Unable to follow up with his usual doctors as outpt due to insurance issues. - History Source History Provided By: Patient, Medical Record Limitations to Obtaining History: No Limitations - Past Medical History Cardio/Vascular: Yes: CAD, Hyperlipdemia, Other (stent) Pulmonary: Yes: COPD Gastrointestinal: Yes: Constipation Musculoskeletal: Yes: Osteoarthritis Rheumatology: Yes: Gout ENT: Yes: Other (S/P parotid surgery) Endocrine: Yes: Diabetes Mellitus - Past Surgical History Past Surgical History: Yes: Stent - Alcohol/Substance Use Hx Alcohol Use: No History of Substance Use: reports: None - Smoking History Smoking history: Former smoker Have you smoked in the past 12 months: No Aproximately how many cigarettes per day: 0 If you are a former smoker, when did you quit?: 1 yr ago - Social History ADL: Independent History of Recent Travel: No Home Medications - Allergies Allergies/Adverse Reactions: Allergies Allergy/AdvReac Type Severity Reaction Status Date / Time oxycodone AdvReac Intermediate Verified 06/08/17 19:22 - Home Medications Home Medications: Ambulatory Orders Aspirin [ASA -] 81 mg PO DAILY #60 tab.chew 07/19/14 Albuterol 2.5/Ipratropium 0.5 [Duoneb -] 1 neb IH QID PRN #50 vial.neb. Albuterol Sulfate Inhaler - [Ventolin HFA Inhaler -] 2 inh IH Q4H #1 inh Atorvastatin Ca [Lipitor] 40 mg PO HS #30 tablet 07/26/15 Budesonide/Formeterol Fumarate [SYMBICORT 160/4.5mcg -] 2 inh IH BID #1 inhaler 07/26/15 Ranitidine [Zantac -] 150 mg PO DAILY #30 tablet 07/26/15 Glipizide [Glucotrol -] 5 mg PO TIDAC #90 tablet 12/26/15 metFORMIN HCL [Glucophage -] 1,000 mg PO BID@0700,1630 #60 tablet 12/26/15 Albuterol 0.083% Nebulizer Clare [Ventolin 0.083% Nebulizer Soln -] 1 neb NEB Q4H PRN 02/19/16 Clopidogrel Bisulfate [Plavix -] 75 mg PO DAILY #30 tablet 02/20/16 Metoprolol Succinate [Toprol XL -] 25 mg PO HS 02/20/16 Nifedipine ER [Procardia XL -] 60 mg PO HS 02/20/16 Valsartan [Diovan] 80 mg PO HS 02/20/16 Sennosides [Senna -] 1 tab PO HS tablet 05/21/16 Tiotropium [place] [Spiriva] 1 puff IH DAILY inh 05/21/16 Methylprednisolone Na Succ [Solu-Medrol -] 60 mg IVPB Q8H-IV #1 vial 12/16/16 Meloxicam 7.5 mg PO DAILY 06/08/17 Family Disease History - Family Disease History Family Disease History: Diabetes: Mother (Probable gout), Brother, Other: Father (Probable gout), Mother Review of Systems - Review of Systems Constitutional: reports: Weakness. denies: Chills, Fever Eyes: denies: Recent Change in Vision HENT: denies: Nasal Congestion, Throat Pain Cardiovascular: reports: Shortness of Breath. denies: Chest Pain, Palpitations Respiratory: reports: Cough, Exercise Intolerance, SOB, SOB on Exertion, Wheezing. denies: Hemoptysis Gastrointestinal: denies: Abdominal Pain, Nausea, Vomiting Genitourinary: denies: Dysuria, Hematuria Neurological: denies: Dizziness, Headache Physical Exam Vital Sings: Vital Signs Temperature 97.7 F 06/09/17 13:00 Pulse Rate 97 H 06/09/17 13:00 Respiratory Rate 16 06/09/17 13:00 Blood Pressure 152/91 06/09/17 13:00 O2 Sat by Pulse Oximetry (%) 97 06/09/17 13:00 Constitutional: Yes: Calm Eyes: Yes: Conjunctiva Clear, EOM Intact HENT: Yes: Atraumatic, Normocephalic Neck: Yes: Supple, Trachea Midline Cardiovascular: Yes: Regular Rate and Rhythm Respiratory: Yes: Poor Air Entry, Rhonchi, Wheezes ...Clubbing: No Gastrointestinal: Yes: Normal Bowel Sounds, Soft. No: Tenderness Edema: No Labs: CBC, BMP 06/09/17 07:50 06/09/17 07:50 ABG Results ABG pH 7.39 (7.35-7.45) 06/09/17 01:12 ABG pCO2 at Pt Temp 37.5 mmHg (35-45) 06/09/17 01:12 ABG pO2 at Pt Temp 94.5 mmHg (70-100) D 06/09/17 01:12 ABG HCO3 22.0 meq/L (22-26) 06/09/17 01:12 ABG O2 Sat (Measured) 97.6 % (90-98.9) 06/09/17 01:12 ABG O2 Content 16.8 % vol (15-22) 06/09/17 01:12 ABG Base Excess -2.1 meq/l (-2-2) L 06/09/17 01:12 Imaging - Results Chest X-ray: Report Reviewed, Image Reviewed (no infiltrates) Problem List - Problems (1) COPD exacerbation Code(s): J44.1 - CHRONIC OBSTRUCTIVE PULMONARY DISEASE W (ACUTE) EXACERBATION (2) Coronary artery disease Code(s): I25.10 - ATHSCL HEART DISEASE OF [place] CORONARY ARTERY W/O ANG PCTRS Qualifiers: Coronary Disease-Associated Artery/Lesion type: [place] artery [place] vs. transplanted heart: [place] heart Associated angina: without angina Qualified Code(s): I25.10 - Atherosclerotic heart disease of [place] coronary artery without angina pectoris (3) Diabetes Code(s): E11.9 - TYPE 2 DIABETES MELLITUS WITHOUT COMPLICATIONS Qualifiers: Diabetes mellitus type: type 2 Diabetes mellitus intermediate manager insulin use: without intermediate manager use Diabetes mellitus complication status: without complication Qualified Code(s): E11.9 - Type 2 diabetes mellitus without complications (4) Hyperlipidemia Code(s): E78.5 - HYPERLIPIDEMIA, UNSPECIFIED Qualifiers: Hyperlipidemia type: pure hypercholesterolemia (5) Hypertension Code(s): I10 - ESSENTIAL (PRIMARY) HYPERTENSION Qualifiers: Hypertension type: essential hypertension Qualified Code(s): I10 - Essential (primary) hypertension Assessment/Plan Acute COPD Exacerbation CAD HTN DM Hyperlipidemia Smoker - IV medrol - inhaled bronchodilators standing and PRN - O2 to keep SpO2 >90% - will change antibiotics to azithromycin, less likely pneumonia - DVT prophylaxis - will need to set up outpt f/u with steam engineer who takes his insurance
[2017-06-09] MEDS ORDERED: AZITHROMYCIN IVPB 500 MG in DEXTROSE 5%-WATER - 250 ML IVPB SCH (15:00)
[2017-06-09] MEDS: ALBUTEROL SO4 2.5/IPRATROPIUM 0.5 INH SOL 3 ML VIAL.NEB. NEB SCH ×2 (15:35→19:45)
[2017-06-09] MEDS: ACETAMINOPHEN 325 MG TABLET (FP) PO PRN ×2 (15:45→22:04)
[2017-06-09] MEDS: methylPREDNISolone NA SUCC 40 MG/1 ML VIAL IVPUSH SCH ×2 (15:46→21:33)
[2017-06-09] MEDS ORDERED: PT OWN MED DRAWER 7, Y5N ONE ×2 (21:07→21:52)
[2017-06-09] MEDS: NIFEdipine E.R 60 MG TABLET (UD) PO SCH (21:31)
[2017-06-09] MEDS: ATORVASTATIN CA 40 MG TABLET (FP) PO SCH (21:31)
[2017-06-09] MEDS: VALSARTAN 80 MG TABLET (UD) PO SCH (21:31)
[2017-06-09] MEDS: metoPROLOL SUCCINATE 25 MG TAB.SR.24H (FP) PO SCH (21:32)
[2017-06-09] MEDS: SENNOSIDES 8.6MG TABLET (FP) PO SCH (21:32)
[2017-06-09] MEDS ORDERED: MAG HYDROX/AL HYDROX/SIMETH 30 ML UNIT-DOSE CUP PO ONE (21:49)
[2017-06-10] MEDS ORDERED: PANTOPRAZOLE SODIUM 40 MG VIAL IVPUSH ONE (00:06)
[2017-06-10] MEDS: methylPREDNISolone NA SUCC 40 MG/1 ML VIAL IVPUSH SCH ×4 (03:18→22:23)
[2017-06-10] MEDS: INSULIN SLIDING SCALE (NOVOLOG) 1 VIAL SQ SCH ×4 (06:43→22:25)
[2017-06-10] MEDS: HEPARIN NA (PORCINE) 5,000 UNITS/ML 1ML VIAL SQ SCH ×3 (06:44→22:23)
[2017-06-10] MEDS: ALBUTEROL SO4 2.5/IPRATROPIUM 0.5 INH SOL 3 ML VIAL.NEB. NEB SCH ×4 (07:36→20:45)
[2017-06-10 08:07] LABS: BASO % 0.1 % (0-2.0); HEMATOCRIT 34.8 % (35.4-49); HEMOGLOBIN 11.6 GM/dL (11.7-16.9); LYMPH % 10.3 % (8-40); MCH 28.5 pg (25.7-33.7); MCHC 33.2 g/dl (32.0-35.9); MEAN CELL VOLUME 85.9 fl (80-96); MEAN PLT VOLUME 8.1 fl (7.5-11.1); MONO % 2.6 % (3.8-10.2); PLATELET COUNT 267 K/MM3 (134-434); RBC 4.06 M/mm3 (4.00-5.60); RDW 15.5 % (11.9-15.9); WHITE BLOOD COUNT 12.8 K/mm3 (4.0-10.0)
[2017-06-10 08:39] LABS: CHLORIDE 98 mmol/L (98-107); POTASSIUM 4.6 mmol/L (3.5-5.1); SODIUM 135 mmol/L (136-145)
[2017-06-10 08:51] LABS: ANION GAP 14 (8-16); BLOOD UREA NITROGEN 24 mg/dL (7-18); CALCIUM 8.6 mg/dL (8.5-10.1); CO2 23 mmol/L (21-32); CREATININE 1.1 mg/dL (0.7-1.3); MAGNESIUM 2.4 mg/dL (1.8-2.4); PHOSPHOROUS 3.8 mg/dL (2.5-4.9)
--- NOTE | 2017-06-10 08:51 | PN ---
<Jaguar Bella - Last Filed: 06/10/17 13:24> Physical Exam: SUBJECTIVE: Patient seen and examined No acute events overnight. Still has shortness of breath and chest tightness. Denies fever, chills. OBJECTIVE: Vital Signs Period Temp Pulse Resp BP Sys/Streeter Pulse Ox Last 24 Hr 97.7 F-98.5 F 88-113 16-20 114-165/75-113 96-99 GENERAL: The patient is awake, alert, and fully oriented, in no acute distress. HEENT: Normal with no signs of trauma, EOMI, sclera anicteric, conjunctiva clear. No Ptosis. Oropharynx clear. MMM. NECK: Trachea midline, full range of motion, supple. LUNGS: Breath sounds equal, Bilateral expiratory wheezing HEART: Regular rate and rhythm, S1, S2 without murmur, rub or gallop. ABDOMEN: Soft, nontender, nondistended, normoactive bowel sounds, no guarding, no rebound, no hepatosplenomegaly, no masses. EXTREMITIES: 2+ pulses, warm, well-perfused, no edema. NEUROLOGICAL: Cranial nerves II through XII grossly intact. Normal speech, gait not observed. PSYCH: Normal mood, normal affect. SKIN: Warm, dry, normal turgor, no rashes or lesions noted Laboratory Results - last 24 hr 06/09/17 06/09/17 06/09/17 07:50 07:50 07:50 WBC 11.7 H D RBC 4.15 Hgb 11.9 Hct 35.8 MCV 86.3 MCH 28.6 MCHC 33.1 RDW 15.2 Plt Count 256 MPV 8.2 Neutrophils % 86.6 H D Lymphocytes % 12.4 D Monocytes % 0.7 L D Eosinophils % 0.0 D Basophils % 0.3 Sodium 130 L Potassium 4.6 Chloride 98 Carbon Dioxide 21 D Anion Gap 11 BUN 21 H Creatinine 1.2 POC Glucometer Random Glucose 374 H* D Calcium 8.4 L Phosphorus 4.4 Magnesium 1.8 Troponin I < 0.02 06/09/17 06/09/17 06/10/17 10:16 21:28 05:43 WBC RBC Hgb Hct MCV MCH MCHC RDW Plt Count MPV Neutrophils % Lymphocytes % Monocytes % Eosinophils % Basophils % Sodium Potassium Chloride Carbon Dioxide Anion Gap BUN Creatinine POC Glucometer > 400 365 351 Random Glucose Calcium Phosphorus Magnesium Troponin I 06/10/17 06/10/17 06:30 06:30 WBC 12.8 H RBC 4.06 Hgb 11.6 L Hct 34.8 L MCV 85.9 MCH 28.5 MCHC 33.2 RDW 15.5 Plt Count 267 MPV 8.1 Neutrophils % 87.0 H Lymphocytes % 10.3 Monocytes % 2.6 L D Eosinophils % 0.0 Basophils % 0.1 Sodium 135 L Potassium 4.6 Chloride 98 Carbon Dioxide Anion Gap BUN Creatinine POC Glucometer Random Glucose Calcium Phosphorus Magnesium Troponin I Active Medications Generic Name Dose Route Start Last Admin Trade Name Freq PRN Reason Stop Dose Admin Acetaminophen 650 mg 06/09/17 15:04 06/09/17 22:04 Tylenol - PO 650 mg Q4H PRN Administration HEADACHE Albuterol Sulfate 1 amp 06/08/17 22:30 Ventolin 0.083% Nebulizer Soln - NEB Q4H PRN ASTHMA Albuterol/Ipratropium 1 amp 06/09/17 16:00 06/10/17 07:36 Duoneb - NEB 1 amp RQID DANITA Administration Aspirin 81 mg 06/09/17 10:00 06/09/17 09:17 Asa - PO 81 mg DAILY DANITA Administration Atorvastatin Calcium 40 mg 06/09/17 22:00 06/09/17 21:31 Lipitor - PO 40 mg HS DANITA Administration Budesonide/Formoterol Fumarate 2 puff 06/08/17 22:30 06/09/17 21:33 Symbicort 160/4.5mcg - IH 2 puff BID DANITA Administration Clopidogrel Bisulfate 75 mg 06/09/17 10:00 06/09/17 09:17 Plavix - PO 75 mg DAILY DANITA Administration Heparin Sodium (Porcine) 5,000 unit 06/09/17 00:15 06/10/17 06:44 Heparin - SQ 5,000 unit TID DANITA Administration Insulin Aspart 1 vial 06/09/17 07:00 06/10/17 06:43 Novolog Vial Sliding Scale - SQ 10 unit ACHS DANITA Administration Protocol Insulin Detemir 15 units 06/10/17 22:00 Levemir Vial SQ HS DANITA Methylprednisolone Sodium Succinate 40 mg 06/09/17 15:00 06/10/17 03:18 Solu-Medrol - IVPUSH 40 mg Q6H-IV DANITA Administration Metoprolol Succinate 25 mg 06/08/17 22:30 06/09/17 21:32 Toprol Xl - PO 25 mg HS DANITA Administration Nifedipine 60 mg 06/08/17 22:30 06/09/17 21:31 Procardia Xl - PO 60 mg HS DANITA Administration Ranitidine HCl 150 mg 06/09/17 10:00 06/09/17 09:18 Zantac - PO 150 mg DAILY DANITA Administration Senna 1 tab 06/09/17 22:00 06/09/17 21:32 Senna - PO Not Given HS DANITA Valsartan 80 mg 06/08/17 22:30 06/09/17 21:31 Diovan - PO 80 mg HS DANITA Administration ASSESSMENT/PLAN: 71 y/o M with PMH HTN, HLD, CAD (with 4 stents- two newest placed in Nov, Dec 2016), COPD, asthma (does not know baseline peak flow; not on home O2), s/p resection parotid neoplasm, who presents to the ED c/o SOB over the past week. Pt admitted to telemetry for acute COPD exacerbation. #Acute COPD exacerbation -Continue symbicort 2 puffs IH BID, spiriva 1 puff IH BID -Nebs prn -Solumedrol 40mg IVPB q6h -Sputum culture pending, rsv antigen negative, urine antigen, influenza swab negative -Pulm consult- Dr. Mclean -Maintain sp02>90 -Continue NC 02 #QT prolongation -QTC 472 -Avoid QT prolonging agents -Zithromax 500 mg IVPB x1, will recheck ekg in am #CAD (with 4 stents) -Aspirin 81mg qd -Clopidogrel 75mg PO qd #HTN- uncontrolled -Metoprolol succinate 25mg PO BID -Nifedipine 60mg PO qd -Valsartan 80mg PO qHS #HLD -Lipitor 40mg PO HS #DM -ISS ACHS -BGM ACHS -Levemir 15 sq hs #F/E/N -no need for IVF at this time -Continue to monitor electrolytes -Sodium controlled, diabetic diet #PPX DVT: Hep SQ 5000 TID #Dispo Telemetry monitoring Visit type - Emergency Visit Emergency Visit: Yes ED Registration Date: 06/08/17 Care time: The patient presented to the Emergency Department on the above date and was hospitalized for further evaluation of their emergent condition. - New Patient This patient is new to me today: No - Critical Care Critical Care patient: No <Jen Marvin - Last Filed: 06/10/17 16:28> Physical Exam: Patient is feeling better , continues to have shortness of breath on exertion. Denies any chest pain or palpitations. Vital Signs Temperature 97.6 F 06/10/17 14:00 Pulse Rate 91 H 06/10/17 14:00 Respiratory Rate 18 06/10/17 14:00 Blood Pressure 141/94 06/10/17 14:00 O2 Sat by Pulse Oximetry (%) 96 06/10/17 09:00 PE: Chest: decreased BS BL. positive for expiratory wheeze with better air entry on the L>R. CBCD WBC 12.8 K/mm3 (4.0-10.0) H 06/10/17 06:30 RBC 4.06 M/mm3 (4.00-5.60) 06/10/17 06:30 Hgb 11.6 GM/dL (11.7-16.9) L 06/10/17 06:30 Hct 34.8 % (35.4-49) L 06/10/17 06:30 MCV 85.9 fl (80-96) 06/10/17 06:30 MCHC 33.2 g/dl (32.0-35.9) 06/10/17 06:30 RDW 15.5 % (11.9-15.9) 06/10/17 06:30 Plt Count 267 K/MM3 (134-434) 06/10/17 06:30 MPV 8.1 fl (7.5-11.1) 06/10/17 06:30 CMP Sodium 135 mmol/L (136-145) L 06/10/17 06:30 Potassium 4.6 mmol/L (3.5-5.1) 06/10/17 06:30 Chloride 98 mmol/L (98-107) 06/10/17 06:30 Carbon Dioxide 23 mmol/L (21-32) 06/10/17 06:30 Anion Gap 14 (8-16) 06/10/17 06:30 BUN 24 mg/dL (7-18) H 06/10/17 06:30 Creatinine 1.1 mg/dL (0.7-1.3) 06/10/17 06:30 Creat Clearance w eGFR > 60 (>60) 06/08/17 20:50 Random Glucose 373 mg/dL (74-106) H* 06/10/17 06:30 Calcium 8.6 mg/dL (8.5-10.1) 06/10/17 06:30 Total Bilirubin 0.6 mg/dL (0.2-1.0) 06/08/17 20:50 AST 16 U/L (15-37) 06/08/17 20:50 ALT 25 U/L (12-78) 06/08/17 20:50 Alkaline Phosphatase 123 U/L (45-117) H D 06/08/17 20:50 Total Protein 7.9 g/dl (6.4-8.2) 06/08/17 20:50 Albumin 4.0 g/dl (3.4-5.0) 06/08/17 20:50 CARDIAC ENZYMES Creatine Kinase 242 IU/L (39-308) 06/08/17 20:50 Troponin I < 0.02 ng/ml (0.00-0.05) 06/09/17 07:50 Current Medications Generic Name Dose Route Start Last Admin Trade Name Freq PRN Reason Stop Dose Admin Acetaminophen 650 mg 06/09/17 15:04 06/10/17 11:58 Tylenol - PO 650 mg Q4H PRN Administration HEADACHE Albuterol Sulfate 1 amp 06/08/17 22:30 Ventolin 0.083% Nebulizer Soln - NEB Q4H PRN ASTHMA Albuterol/Ipratropium 1 amp 06/09/17 16:00 06/10/17 16:17 Duoneb - NEB 1 amp RQID DANITA Administration Aspirin 81 mg 06/09/17 10:00 06/10/17 09:51 Asa - PO 81 mg DAILY DANITA Administration Atorvastatin Calcium 40 mg 06/09/17 22:00 06/09/17 21:31 Lipitor - PO 40 mg HS DANITA Administration Budesonide/Formoterol Fumarate 2 puff 06/08/17 22:30 06/10/17 09:58 Symbicort 160/4.5mcg - IH 2 puff BID DANITA Administration Clopidogrel Bisulfate 75 mg 06/09/17 10:00 06/10/17 09:51 Plavix - PO 75 mg DAILY DANITA Administration Heparin Sodium (Porcine) 5,000 unit 06/09/17 00:15 06/10/17 13:39 Heparin - SQ 5,000 unit TID DANITA Administration Insulin Aspart 1 vial 06/09/17 07:00 06/10/17 11:46 Novolog Vial Sliding Scale - SQ 10 unit ACHS DANITA Administration Protocol Insulin Detemir 15 units 06/10/17 22:00 Levemir Vial SQ HS DANITA Methylprednisolone Sodium Succinate 40 mg 06/09/17 15:00 06/10/17 15:00 Solu-Medrol - IVPUSH 40 mg Q6H-IV DANITA Administration Metoprolol Succinate 25 mg 06/08/17 22:30 06/09/17 21:32 Toprol Xl - PO 25 mg HS DANITA Administration Nifedipine 60 mg 06/08/17 22:30 06/09/17 21:31 Procardia Xl - PO 60 mg HS DANITA Administration Ranitidine HCl 150 mg 06/09/17 10:00 06/10/17 09:51 Zantac - PO 150 mg DAILY DANITA Administration Senna 1 tab 06/09/17 22:00 06/09/17 21:32 Senna - PO Not Given HS DANITA Valsartan 80 mg 06/08/17 22:30 06/09/17 21:31 Diovan - PO 80 mg HS DANITA Administration Home Medications Medication Instructions Recorded Aspirin [ASA -] 81 mg PO DAILY #60 tab.chew 07/19/14 Albuterol 2.5/Ipratropium 0.5 1 neb IH QID PRN #50 vial.neb. 07/26/15 [Duoneb -] Albuterol Sulfate Inhaler - 2 inh IH Q4H #1 inh 07/26/15 [Ventolin HFA Inhaler -] Atorvastatin Ca [Lipitor] 40 mg PO HS #30 tablet 07/26/15 Budesonide/Formeterol Fumarate 2 inh IH BID #1 inhaler 07/26/15 [SYMBICORT 160/4.5mcg -] Ranitidine [Zantac -] 150 mg PO DAILY #30 tablet 07/26/15 Glipizide [Glucotrol -] 5 mg PO TIDAC #90 tablet 12/26/15 metFORMIN HCL [Glucophage -] 1,000 mg PO BID@0700,1630 #60 12/26/15 tablet Albuterol 0.083% Nebulizer [place] 1 neb NEB Q4H PRN 02/19/16 [Ventolin 0.083% Nebulizer Soln -] Clopidogrel Bisulfate [Plavix -] 75 mg PO DAILY #30 tablet 02/20/16 Metoprolol Succinate [Toprol XL -] 25 mg PO HS 02/20/16 Nifedipine ER [Procardia XL -] 60 mg PO HS 02/20/16 Valsartan [Diovan] 80 mg PO HS 02/20/16 Sennosides [Senna -] 1 tab PO HS tablet 05/21/16 Tiotropium [place] [Spiriva] 1 puff IH DAILY inh 05/21/16 Methylprednisolone Na Succ 60 mg IVPB Q8H-IV #1 vial 12/16/16 [Solu-Medrol -] Meloxicam 7.5 mg PO DAILY 06/08/17 A/P: # Acute COPD Exacerbation on steroid IV 40mg q6h improving will continue current regimen, continue nebs. Pulm. on the case appreciated. ordered one dose of Zithromax 500mg IV will recheck EKG in am for QT prolongation . Keep Sa O2 >90% # CAD continue his meds # HTN controlled continue current regimen # DM continue Levemir with SS # Hyperlipidemia continue Lipitor #Smoker smoking cessation discussed with. DVT prophylaxis: Heparin
[2017-06-10 09:15] LABS: GLUCOSE,RANDOM 373 mg/dL (74-106)
[2017-06-10] MEDS ORDERED: PT OWN MED DRAWER 7, Y5N ONE ×4 (09:48→22:20)
[2017-06-10] MEDS: ASPIRIN 81 MG CHEWABLE TABLETS PO SCH (09:51)
[2017-06-10] MEDS: RANITIDINE HCL 150 MG TABLET (FP) PO SCH (09:51)
[2017-06-10] MEDS: CLOPIDOGREL BISULFATE 75 MG TABLET (FP) PO SCH (09:51)
[2017-06-10] MEDS: BUDESONIDE/FORMETEROL FUMARATE 160/4.5 mcg INHALER IH SCH ×2 (09:58→22:25)
--- NOTE | 2017-06-10 09:59 | EKG ---
Test Reason : Blood Pressure : / mmHG Vent. Rate : 088 BPM Atrial Rate : 088 BPM P-R Int : 168 ms QRS Dur : 118 ms QT Int : 394 ms P-R-T Axes : 065 -42 114 degrees QTc Int : 476 ms NORMAL SINUS RHYTHM LEFT AXIS DEVIATION INCOMPLETE RIGHT BUNDLE BRANCH BLOCK PROLONGED QT ABNORMAL ECG WHEN COMPARED WITH ECG OF 08-JUN-2017 21:07, NO SIGNIFICANT CHANGE WAS FOUND Confirmed by LEI REID, GILBERTO ([id number]) on 06/10/2017 9:59:15 AM Referred By: Confirmed By:GILBERTO ODOM MD
[2017-06-10] MEDS: ACETAMINOPHEN 325 MG TABLET (FP) PO PRN (11:58)
--- NOTE | 2017-06-10 12:48 | PN ---
Progress Note, Physician History of Present Illness: PULMONARY ALERT,C/O SOB,CHEST TIGHTNESS - Current Medication List Current Medications: Active Medications Acetaminophen (Tylenol -) 650 mg PO Q4H PRN PRN Reason: HEADACHE Last Admin: 06/10/17 11:58 Dose: 650 mg Albuterol Sulfate (Ventolin 0.083% Nebulizer Soln -) 1 amp NEB Q4H PRN PRN Reason: ASTHMA Albuterol/Ipratropium (Duoneb -) 1 amp NEB RQID [facility] Last Admin: 06/10/17 11:12 Dose: 1 amp Aspirin (Asa -) 81 mg PO DAILY [facility] Last Admin: 06/10/17 09:51 Dose: 81 mg Atorvastatin Calcium (Lipitor -) 40 mg PO HS [facility] Last Admin: 06/09/17 21:31 Dose: 40 mg Budesonide/Formoterol Fumarate (Symbicort 160/4.5mcg -) 2 puff IH BID [facility] Last Admin: 06/10/17 09:58 Dose: 2 puff Clopidogrel Bisulfate (Plavix -) 75 mg PO DAILY [facility] Last Admin: 06/10/17 09:51 Dose: 75 mg Heparin Sodium (Porcine) (Heparin -) 5,000 unit SQ TID [facility] Last Admin: 06/10/17 06:44 Dose: 5,000 unit Insulin Aspart (Novolog Vial Sliding Scale -) 1 vial SQ ACHS [facility] PRN Reason: Protocol Last Admin: 06/10/17 11:46 Dose: 10 unit Insulin Detemir (Levemir Vial) 15 units SQ HS [facility] Methylprednisolone Sodium Succinate (Solu-Medrol -) 40 mg IVPUSH Q6H-IV [facility] Last Admin: 06/10/17 09:51 Dose: 40 mg Metoprolol Succinate (Toprol Xl -) 25 mg PO HS [facility] Last Admin: 06/09/17 21:32 Dose: 25 mg Nifedipine (Procardia Xl -) 60 mg PO HS [facility] Last Admin: 06/09/17 21:31 Dose: 60 mg Ranitidine HCl (Zantac -) 150 mg PO DAILY [facility] Last Admin: 06/10/17 09:51 Dose: 150 mg Senna (Senna -) 1 tab PO [facility] Last Admin: 06/09/17 21:32 Dose: Not Given Valsartan (Diovan -) 80 mg PO [facility] Last Admin: 06/09/17 21:31 Dose: 80 mg - Objective Vital Signs: Vital Signs Temperature 97.4 F L 06/10/17 10:00 Pulse Rate 109 H 06/10/17 10:00 Respiratory Rate 19 06/10/17 10:00 Blood Pressure 110/70 06/10/17 10:00 O2 Sat by Pulse Oximetry (%) 96 06/10/17 09:00 Constitutional: Yes: Well Nourished, Calm Eyes: Yes: WNL HENT: Yes: WNL Neck: Yes: WNL Cardiovascular: Yes: Regular Rate and Rhythm, S1, S2 Respiratory: Yes: Wheezes (BILATERAL WHEEZES) Gastrointestinal: Yes: Normal Bowel Sounds, Soft Extremities: Yes: WNL Edema: No Labs: CBC, BMP 06/10/17 06:30 06/10/17 06:30 Assessment/Plan Problem List - Problems (1) COPD exacerbation Code(s): J44.1 - CHRONIC OBSTRUCTIVE PULMONARY DISEASE W (ACUTE) EXACERBATION (2) Coronary artery disease Code(s): I25.10 - ATHSCL HEART DISEASE OF [place] CORONARY ARTERY W/O ANG PCTRS Qualifiers: Coronary Disease-Associated Artery/Lesion type: [place] artery [place] vs. 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 use: without [place] [facility] use Diabetes mellitus complication status: without complication Qualified Code(s): E11.9 - Type 2 diabetes mellitus without complications (4) Hyperlipidemia Code(s): E78.5 - HYPERLIPIDEMIA, UNSPECIFIED Qualifiers: Hyperlipidemia type: pure hypercholesterolemia (5) Hypertension Code(s): I10 - ESSENTIAL (PRIMARY) HYPERTENSION Qualifiers: Hypertension type: essential hypertension Qualified Code(s): I10 - Essential (primary) hypertension Assessment/Plan Acute COPD Exacerbation CAD HTN DM Hyperlipidemia Smoker - IV medrol same dose - inhaled bronchodilators standing and PRN - O2 to keep SpO2 >90% - azithromycin - DVT prophylaxis - will need to set up outpt f/u with roof bolter helper who takes his insurance
[2017-06-10] MEDS ORDERED: AZITHROMYCIN IVPB 500 MG in DEXTROSE 5%-WATER - 250 ML IVPB ONE (13:31)
[2017-06-10] MEDS ORDERED: metoPROLOL SUCCINATE 25 MG TAB.SR.24H (FP) PO ONE (18:15)
[2017-06-10] MEDS: VALSARTAN 80 MG TABLET (UD) PO SCH (22:23)
[2017-06-10] MEDS: ATORVASTATIN CA 40 MG TABLET (FP) PO SCH (22:23)
[2017-06-10] MEDS: NIFEdipine E.R 60 MG TABLET (UD) PO SCH (22:24)
[2017-06-10] MEDS: SENNOSIDES 8.6MG TABLET (FP) PO SCH (22:24)
[2017-06-10] MEDS: INSULIN DETEMIR 100 UNITS/ML MDV SQ SCH (22:24)
[2017-06-11] MEDS: methylPREDNISolone NA SUCC 40 MG/1 ML VIAL IVPUSH SCH ×4 (02:07→21:14)
[2017-06-11] MEDS: INSULIN SLIDING SCALE (NOVOLOG) 1 VIAL SQ SCH ×6 (03:21→21:14)
[2017-06-11] MEDS: HEPARIN NA (PORCINE) 5,000 UNITS/ML 1ML VIAL SQ SCH ×3 (06:39→21:14)
[2017-06-11 07:34] LABS: BASO % 0.2 % (0-2.0); HEMATOCRIT 34.7 % (35.4-49); HEMOGLOBIN 11.6 GM/dL (11.7-16.9); LYMPH % 9.8 % (8-40); MCH 28.8 pg (25.7-33.7); MCHC 33.4 g/dl (32.0-35.9); MEAN CELL VOLUME 86.3 fl (80-96); MEAN PLT VOLUME 8.1 fl (7.5-11.1); MONO % 3.8 % (3.8-10.2); NEUT % 86.2 % (42.8-82.8); PLATELET COUNT 267 K/MM3 (134-434); RBC 4.02 M/mm3 (4.00-5.60); RDW 15.7 % (11.9-15.9); WHITE BLOOD COUNT 12.8 K/mm3 (4.0-10.0)
[2017-06-11 07:53] LABS: CHLORIDE 99 mmol/L (98-107); POTASSIUM 4.2 mmol/L (3.5-5.1); SODIUM 130 mmol/L (136-145)
[2017-06-11] MEDS: ALBUTEROL SO4 2.5/IPRATROPIUM 0.5 INH SOL 3 ML VIAL.NEB. NEB SCH ×4 (08:07→20:25)
[2017-06-11 08:08] LABS: ANION GAP 6 (8-16); BLOOD UREA NITROGEN 25 mg/dL (7-18); CALCIUM 8.3 mg/dL (8.5-10.1); CO2 25 mmol/L (21-32); CREATININE 1.1 mg/dL (0.7-1.3)
[2017-06-11] MEDS ORDERED: PT OWN MED DRAWER 7, Y5N ONE ×2 (08:45→21:07)
[2017-06-11] MEDS: ASPIRIN 81 MG CHEWABLE TABLETS PO SCH (09:00)
[2017-06-11] MEDS: CLOPIDOGREL BISULFATE 75 MG TABLET (FP) PO SCH (09:00)
[2017-06-11] MEDS: BUDESONIDE/FORMETEROL FUMARATE 160/4.5 mcg INHALER IH SCH ×2 (09:00→21:15)
[2017-06-11] MEDS: RANITIDINE HCL 150 MG TABLET (FP) PO SCH (09:00)
[2017-06-11 09:57] LABS: GLUCOSE,RANDOM 302 mg/dL (74-106)
[2017-06-11] MEDS ORDERED: INSULIN (NOVOLOG) ASPART 100 UNITS/ML 10ML VIAL ONE ×2 (10:10→21:08)
--- NOTE | 2017-06-11 15:44 | PN ---
Progress Note (short form) - Note Progress Note: PULMONARY Breathing better but still some dyspnea on exertion with cough and wheezing. Last Vital Signs Temp Pulse Resp BP Pulse Ox 97.6 F 94 H 18 130/74 98 06/11/17 10:00 06/11/17 10:00 06/11/17 10:00 06/11/17 10:00 06/11/17 09:00 Gen: NAD at rest Heart: RRR Lung: distant breath sounds, no wheezes Abd: soft, nontender Ext: no edema CBC, BMP 06/11/17 06:00 06/11/17 06:00 Active Medications Acetaminophen (Tylenol -) 650 mg PO Q4H PRN PRN Reason: HEADACHE Last Admin: 06/10/17 11:58 Dose: 650 mg Albuterol Sulfate (Ventolin 0.083% Nebulizer Soln -) 1 amp NEB Q4H PRN PRN Reason: ASTHMA Albuterol/Ipratropium (Duoneb -) 1 amp NEB RQID [facility] Last Admin: 06/11/17 12:43 Dose: 1 amp Aspirin (Asa -) 81 mg PO DAILY [facility] Last Admin: 06/11/17 09:00 Dose: 81 mg Atorvastatin Calcium (Lipitor -) 40 mg PO HS [facility] Last Admin: 06/10/17 22:23 Dose: 40 mg Budesonide/Formoterol Fumarate (Symbicort 160/4.5mcg -) 2 puff IH BID [facility] Last Admin: 06/11/17 09:00 Dose: 2 puff Clopidogrel Bisulfate (Plavix -) 75 mg PO DAILY [facility] Last Admin: 06/11/17 09:00 Dose: 75 mg Heparin Sodium (Porcine) (Heparin -) 5,000 unit SQ TID [facility] Last Admin: 06/11/17 13:43 Dose: 5,000 unit Insulin Aspart (Novolog Vial Sliding Scale -) 1 vial SQ Q4HPO [facility] PRN Reason: Protocol Last Admin: 06/11/17 13:43 Dose: 10 units Insulin Detemir (Levemir Vial) 15 units SQ HS [facility] Last Admin: 06/10/17 22:24 Dose: 15 units Methylprednisolone Sodium Succinate (Solu-Medrol -) 40 mg IVPUSH Q6H-IV [facility] Last Admin: 06/11/17 14:08 Dose: 40 mg Metoprolol Succinate (Toprol Xl -) 25 mg PO [facility] Last Admin: 06/09/17 21:32 Dose: 25 mg Nifedipine (Procardia Xl -) 60 mg PO [facility] Last Admin: 06/10/17 22:24 Dose: 60 mg Ranitidine HCl (Zantac -) 150 mg PO DAILY [facility] Last Admin: 06/11/17 09:00 Dose: 150 mg Senna (Senna -) 1 tab PO [facility] Last Admin: 06/10/17 22:24 Dose: 1 tab Valsartan (Diovan -) 80 mg PO [facility] Last Admin: 06/10/17 22:23 Dose: 80 mg A/P Acute COPD Exacerbation CAD HTN DM Hyperlipidemia Smoker - will decrease medrol to q8h - inhaled bronchodilators standing and PRN - O2 to keep SpO2 >90% - continue azithromycin, monitor QT - cough suppressants - DVT prophylaxis Problem List - Problems (1) COPD exacerbation Code(s): J44.1 - CHRONIC OBSTRUCTIVE PULMONARY DISEASE W (ACUTE) EXACERBATION (2) Coronary artery disease Code(s): I25.10 - ATHSCL HEART DISEASE OF [place] CORONARY ARTERY W/O ANG PCTRS Qualifiers: Coronary Disease-Associated Artery/Lesion type: [place] artery [place] vs. 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
[2017-06-11] MEDS: AZITHROMYCIN IVPB 500 MG in DEXTROSE 5%-WATER - 250 ML IVPB SCH (17:09)
--- NOTE | 2017-06-11 17:40 | EKG ---
Test Reason : Blood Pressure : / mmHG Vent. Rate : 092 BPM Atrial Rate : 092 BPM P-R Int : 158 ms QRS Dur : 110 ms QT Int : 396 ms P-R-T Axes : 050 -41 111 degrees QTc Int : 489 ms SINUS RHYTHM WITH PREMATURE ATRIAL COMPLEXES WITH ABERRANT CONDUCTION LEFT AXIS DEVIATION ABNORMAL ECG WHEN COMPARED WITH ECG OF 10-JUN-2017 09:25, ABERRANT CONDUCTION IS NOW PRESENT Confirmed by MD LENNOX, JAYESH ([id number]) on 06/11/2017 5:39:53 PM Referred By: Deborah WOOD Confirmed By:JAYESH HIGH MD
--- NOTE | 2017-06-11 19:24 | PN ---
Physical Exam: SUBJECTIVE: Patient seen and examined Patient is feeling better with no acute distress. On cpap at night. OBJECTIVE: Vital Signs Temperature 97.7 F 06/11/17 18:41 Pulse Rate 93 H 06/11/17 18:41 Respiratory Rate 18 06/11/17 18:41 Blood Pressure 143/79 06/11/17 18:41 O2 Sat by Pulse Oximetry (%) 98 06/11/17 09:00 GENERAL: The patient is awake, alert, and fully oriented, in no acute distress. HEAD: Normal with no signs of trauma. EYES: PERRL, extraocular movements intact, sclera anicteric, conjunctiva clear. No ptosis. ENT: Ears normal, nares patent, oropharynx clear without exudates, moist mucous membranes. NECK: Trachea midline, full range of motion, supple. LUNGS:positive for wheezing bl, decreaases Breath sounds equal, clear to auscultation bilaterally, no wheezes, no crackles, no accessory muscle use. HEART: Regular rate and rhythm, S1, S2 without murmur, rub or gallop. ABDOMEN: Soft, nontender, nondistended, normoactive bowel sounds, no guarding, no rebound, no hepatosplenomegaly, no masses. EXTREMITIES: 2+ pulses, warm, well-perfused, no edema. NEUROLOGICAL: Cranial nerves II through XII grossly intact. Normal speech, gait not observed. PSYCH: Normal mood, normal affect. SKIN: Warm, dry, normal turgor, no rashes or lesions noted Active Medications Generic Name Dose Route Start Last Admin Trade Name Freq PRN Reason Stop Dose Admin Acetaminophen 650 mg 06/09/17 15:04 06/10/17 11:58 Tylenol - PO 650 mg Q4H PRN Administration HEADACHE Albuterol Sulfate 1 amp 06/08/17 22:30 Ventolin 0.083% Nebulizer Soln - NEB Q4H PRN ASTHMA Albuterol/Ipratropium 1 amp 06/09/17 16:00 06/11/17 16:30 Duoneb - NEB Not Given RQID DANITA Aspirin 81 mg 06/09/17 10:00 06/11/17 09:00 Asa - PO 81 mg DAILY DANITA Administration Atorvastatin Calcium 40 mg 06/09/17 22:00 06/10/17 22:23 Lipitor - PO 40 mg HS DANITA Administration Budesonide/Formoterol Fumarate 2 puff 06/08/17 22:30 06/11/17 09:00 Symbicort 160/4.5mcg - IH 2 puff BID DANITA Administration Clopidogrel Bisulfate 75 mg 06/09/17 10:00 06/11/17 09:00 Plavix - PO 75 mg DAILY DANITA Administration Guaifenesin/Codeine Phosphate 5 ml 06/11/17 15:43 Robitussin Ac - PO TID PRN COUGH Heparin Sodium (Porcine) 5,000 unit 06/09/17 00:15 06/11/17 13:43 Heparin - SQ 5,000 unit TID DANITA Administration Azithromycin 500 mg/ Dextrose 250 mls @ 250 mls/hr 06/11/17 15:45 06/11/17 17 :09 IVPB 06/13/17 10:59 250 mls/hr DAILY DANITA Administration Insulin Aspart 1 vial 06/11/17 06:00 06/11/17 17:09 Novolog Vial Sliding Scale - SQ 8 units Q4HPO DANITA Administration Protocol Insulin Detemir 15 units 06/10/17 22:00 06/10/17 22:24 Levemir Vial SQ 15 units HS DANITA Administration Methylprednisolone Sodium Succinate 40 mg 06/11/17 22:00 Solu-Medrol - IVPUSH Q8H DANITA Metoprolol Succinate 25 mg 06/08/17 22:30 06/09/17 21:32 Toprol Xl - PO 25 mg HS DANITA Administration Nifedipine 60 mg 06/08/17 22:30 06/10/17 22:24 Procardia Xl - PO 60 mg HS DANITA Administration Ranitidine HCl 150 mg 06/09/17 10:00 06/11/17 09:00 Zantac - PO 150 mg DAILY [facility]ANITA Administration Senna 1 tab 06/09/17 22:00 06/10/17 22:24 Senna - PO 1 tab HS DANITA Administration Valsartan 80 mg 06/08/17 22:30 06/10/17 22:23 Diovan - PO 80 mg HS [facility]ANITA Administration ASSESSMENT/PLAN: 71 y/o M with PMH HTN, HLD, CAD (with 4 stents- two newest placed in Nov, Dec 2016), COPD, asthma (does not know baseline peak flow; not on home O2), s/p resection parotid neoplasm, who presents to the ED c/o SOB over the past week. Pt admitted to telemetry for acute COPD exacerbation. #Acute COPD exacerbation continue current regimen as per Pulm. Sputum culture pending, rsv antigen negative, urine antigen, influenza swab negative -Pulm consult- Dr. Mclean, Maintain [id number] #QT prolongation QTC 472, Zithromax 500 mg IVPB x1, will recheck ekg in am #CAD (with 4 stents) continue Aspirin and Plavix #HTN- uncontrolled continue current meds #HLD Lipitor 40mg PO HS #DM ISS ACHS, BGM ACHS, Levemir 15 sq hs Visit type - Emergency Visit Emergency Visit: Yes ED Registration Date: 06/08/17 Care time: The patient presented to the Emergency Department on the above date and was hospitalized for further evaluation of their emergent condition. - New Patient This patient is new to me today: No - Critical Care Critical Care patient: No - Discharge Referral Referred to [facility] No
[2017-06-11] MEDS: guaiFENesin/CODEINE 5 ML UNIT-DOSE CUPS PO PRN (19:49)
[2017-06-11] MEDS: ACETAMINOPHEN 325 MG TABLET (FP) PO PRN (19:54)
[2017-06-11] MEDS: NIFEdipine E.R 60 MG TABLET (UD) PO SCH (21:14)
[2017-06-11] MEDS: metoPROLOL SUCCINATE 25 MG TAB.SR.24H (FP) PO SCH (21:14)
[2017-06-11] MEDS: VALSARTAN 80 MG TABLET (UD) PO SCH (21:14)
[2017-06-11] MEDS: ATORVASTATIN CA 40 MG TABLET (FP) PO SCH (21:14)
[2017-06-11] MEDS: SENNOSIDES 8.6MG TABLET (FP) PO SCH (21:14)
[2017-06-11] MEDS: INSULIN DETEMIR 100 UNITS/ML MDV SQ SCH (21:15)
[2017-06-12] MEDS: INSULIN SLIDING SCALE (NOVOLOG) 1 VIAL SQ SCH ×6 (01:37→21:49)
[2017-06-12] MEDS: guaiFENesin/CODEINE 5 ML UNIT-DOSE CUPS PO PRN ×3 (04:06→21:50)
[2017-06-12] MEDS: HEPARIN NA (PORCINE) 5,000 UNITS/ML 1ML VIAL SQ SCH ×3 (06:27→21:48)
[2017-06-12] MEDS: methylPREDNISolone NA SUCC 40 MG/1 ML VIAL IVPUSH SCH ×3 (06:28→21:48)
[2017-06-12] MEDS: ALBUTEROL SO4 2.5/IPRATROPIUM 0.5 INH SOL 3 ML VIAL.NEB. NEB SCH ×4 (08:25→20:00)
[2017-06-12] MEDS: CLOPIDOGREL BISULFATE 75 MG TABLET (FP) PO SCH (10:08)
[2017-06-12] MEDS: RANITIDINE HCL 150 MG TABLET (FP) PO SCH (10:08)
[2017-06-12] MEDS: BUDESONIDE/FORMETEROL FUMARATE 160/4.5 mcg INHALER IH SCH ×2 (10:08→21:50)
[2017-06-12] MEDS: AZITHROMYCIN IVPB 500 MG in DEXTROSE 5%-WATER - 250 ML IVPB SCH (10:08)
[2017-06-12] MEDS: ASPIRIN 81 MG CHEWABLE TABLETS PO SCH (10:08)
--- NOTE | 2017-06-12 13:36 | PN ---
Progress Note (short form) - Note Progress Note: PULMONARY Breathing better but still some dyspnea on exertion with cough and wheezing. Last Vital Signs Temp Pulse Resp BP Pulse Ox 97.6 F 83 20 153/109 93 L 06/12/17 10:00 06/12/17 10:00 06/12/17 10:00 06/12/17 10:00 06/12/17 09:00 Gen: NAD at rest Heart: RRR Lung: distant breath sounds, scattered rhonchi, wheezes Abd: soft, nontender Ext: no edema CBC, BMP 06/11/17 06:00 06/11/17 06:00 Active Medications Acetaminophen (Tylenol -) 650 mg PO Q4H PRN PRN Reason: HEADACHE Last Admin: 06/11/17 19:54 Dose: 650 mg Albuterol Sulfate (Ventolin 0.083% Nebulizer Soln -) 1 amp NEB Q4H PRN PRN Reason: ASTHMA Albuterol/Ipratropium (Duoneb -) 1 amp NEB RQID [facility] Last Admin: 06/12/17 08:25 Dose: 1 amp Aspirin (Asa -) 81 mg PO DAILY [facility] Last Admin: 06/12/17 10:08 Dose: 81 mg Atorvastatin Calcium (Lipitor -) 40 mg PO HS [facility] Last Admin: 06/11/17 21:14 Dose: 40 mg Budesonide/Formoterol Fumarate (Symbicort 160/4.5mcg -) 2 puff IH BID [facility] Last Admin: 06/12/17 10:08 Dose: 2 puff Clopidogrel Bisulfate (Plavix -) 75 mg PO DAILY [facility] Last Admin: 06/12/17 10:08 Dose: 75 mg Guaifenesin/Codeine Phosphate (Robitussin Ac -) 5 ml PO TID PRN PRN Reason: COUGH Last Admin: 06/12/17 13:20 Dose: 5 ml Heparin Sodium (Porcine) (Heparin -) 5,000 unit SQ TID [facility] Last Admin: 06/12/17 13:20 Dose: 5,000 unit Azithromycin 500 mg/ Dextrose 250 mls @ 250 mls/hr IVPB DAILY [facility] Stop: 06/13/17 10:59 Last Admin: 06/12/17 10:08 Dose: 250 mls/hr Insulin Aspart (Novolog Vial Sliding Scale -) 1 vial SQ Q4HPO [facility] PRN Reason: Protocol Last Admin: 06/12/17 13:22 Dose: 10 units Insulin Detemir (Levemir Vial) 15 units SQ [facility] Last Admin: 06/11/17 21:15 Dose: 15 units Methylprednisolone Sodium Succinate (Solu-Medrol -) 40 mg IVPUSH Q8H [facility] Last Admin: 06/12/17 13:20 Dose: 40 mg Metoprolol Succinate (Toprol Xl -) 25 mg PO [facility] Last Admin: 06/11/17 21:14 Dose: 25 mg Nifedipine (Procardia Xl -) 60 mg PO [facility] Last Admin: 06/11/17 21:14 Dose: 60 mg Ranitidine HCl (Zantac -) 150 mg PO DAILY [facility] Last Admin: 06/12/17 10:08 Dose: 150 mg Senna (Senna -) 1 tab PO [facility] Last Admin: 06/11/17 21:14 Dose: 1 tab Valsartan (Diovan -) 80 mg PO [facility] Last Admin: 06/11/17 21:14 Dose: 80 mg A/P Acute COPD Exacerbation CAD HTN DM Hyperlipidemia Smoker - continue medrol q8h, can decrease in AM if continues to improve - inhaled bronchodilators standing and PRN - O2 to keep SpO2 >90% - continue azithromycin, monitor QT - cough suppressants - DVT prophylaxis - anticipate discharge /3 Problem List - Problems (1) COPD exacerbation Code(s): J44.1 - CHRONIC OBSTRUCTIVE PULMONARY DISEASE W (ACUTE) EXACERBATION (2) Coronary artery disease Code(s): I25.10 - ATHSCL HEART DISEASE OF [place] CORONARY ARTERY W/O ANG PCTRS Qualifiers: Coronary Disease-Associated Artery/Lesion type: [place] artery [place] vs. transplanted heart: [place] heart Associated angina: without angina Qualified Code(s): I25.10 - Atherosclerotic heart disease of [place] coronary artery without angina pectoris (3) Diabetes Code(s): E11.9 - TYPE 2 DIABETES MELLITUS WITHOUT COMPLICATIONS Qualifiers: Diabetes mellitus type: type 2 Diabetes mellitus chcf insulin use: without chcf use Diabetes mellitus complication status: without complication Qualified Code(s): E11.9 - Type 2 diabetes mellitus without complications (4) Hyperlipidemia Code(s): E78.5 - HYPERLIPIDEMIA, UNSPECIFIED Qualifiers: Hyperlipidemia type: pure hypercholesterolemia (5) Hypertension Code(s): I10 - ESSENTIAL (PRIMARY) HYPERTENSION Qualifiers: Hypertension type: essential hypertension Qualified Code(s): I10 - Essential (primary) hypertension
--- NOTE | 2017-06-12 17:57 | PN ---
Progress Note (short form) - Note Progress Note: Patient is feeling better , less cough. Vital Signs Temperature 97.9 F 06/12/17 17:54 Pulse Rate 96 H 06/12/17 17:54 Respiratory Rate 20 06/12/17 17:54 Blood Pressure 140/85 06/12/17 17:54 O2 Sat by Pulse Oximetry (%) 93 L 06/12/17 09:00 GENERAL: The patient is awake, alert, and fully oriented, in no acute distress. HEAD: Normal with no signs of trauma. EYES: PERRL, extraocular movements intact, sclera anicteric, conjunctiva clear. No ptosis. ENT: Ears normal, nares patent, oropharynx clear without exudates, moist mucous membranes. NECK: Trachea midline, full range of motion, supple. LUNGS:positive for wheezing bl, decreases Breath sounds equal, clear to auscultation bilaterally, no wheezes, no crackles, no accessory muscle use. HEART: Regular rate and rhythm, S1, S2 without murmur, rub or gallop. ABDOMEN: Soft, nontender, nondistended, normoactive bowel sounds, no guarding, no rebound, no hepatosplenomegaly, no masses. EXTREMITIES: 2+ pulses, warm, well-perfused, no edema. NEUROLOGICAL: Cranial nerves II through XII grossly intact. Normal speech, gait not observed. PSYCH: Normal mood, normal affect. SKIN: Warm, dry, normal turgor, no rashes or lesions noted CBCD WBC 12.8 K/mm3 (4.0-10.0) H 06/11/17 06:00 RBC 4.02 M/mm3 (4.00-5.60) 06/11/17 06:00 Hgb 11.6 GM/dL (11.7-16.9) L 06/11/17 06:00 Hct 34.7 % (35.4-49) L 06/11/17 06:00 MCV 86.3 fl (80-96) 06/11/17 06:00 MCHC 33.4 g/dl (32.0-35.9) 06/11/17 06:00 RDW 15.7 % (11.9-15.9) 06/11/17 06:00 Plt Count 267 K/MM3 (134-434) 06/11/17 06:00 MPV 8.1 fl (7.5-11.1) 06/11/17 06:00 CMP Sodium 130 mmol/L (136-145) L 06/11/17 06:00 Potassium 4.2 mmol/L (3.5-5.1) 06/11/17 06:00 Chloride 99 mmol/L (98-107) 06/11/17 06:00 Carbon Dioxide 25 mmol/L (21-32) 06/11/17 06:00 Anion Gap 6 (8-16) L 06/11/17 06:00 BUN 25 mg/dL (7-18) H 06/11/17 06:00 Creatinine 1.1 mg/dL (0.7-1.3) 06/11/17 06:00 Creat Clearance w eGFR > 60 (>60) 06/08/17 20:50 Random Glucose 302 mg/dL (74-106) H* 06/11/17 06:00 Calcium 8.3 mg/dL (8.5-10.1) L 06/11/17 06:00 Total Bilirubin 0.6 mg/dL (0.2-1.0) 06/08/17 20:50 AST 16 U/L (15-37) 06/08/17 20:50 ALT 25 U/L (12-78) 06/08/17 20:50 Alkaline Phosphatase 123 U/L (45-117) H D 06/08/17 20:50 Total Protein 7.9 g/dl (6.4-8.2) 06/08/17 20:50 Albumin 4.0 g/dl (3.4-5.0) 06/08/17 20:50 CARDIAC ENZYMES Creatine Kinase 242 IU/L (39-308) 06/08/17 20:50 Troponin I < 0.02 ng/ml (0.00-0.05) 06/09/17 07:50 Current Medications Generic Name Dose Route Start Last Admin Trade Name Freq PRN Reason Stop Dose Admin Acetaminophen 650 mg 06/09/17 15:04 06/11/17 19:54 Tylenol - PO 650 mg Q4H PRN Administration HEADACHE Albuterol Sulfate 1 amp 06/08/17 22:30 Ventolin 0.083% Nebulizer Soln - NEB Q4H PRN ASTHMA Albuterol/Ipratropium 1 amp 06/09/17 16:00 04/01/18 15:52 Duoneb - NEB 1 amp RQID [facility] Administration Aspirin 81 mg 06/09/17 10:00 06/12/17 10:08 Asa - PO 81 mg DAILY [facility] Administration Atorvastatin Calcium 40 mg 06/09/17 22:00 06/11/17 21:14 Lipitor - PO 40 mg HS [facility] Administration Budesonide/Formoterol Fumarate 2 puff 06/08/17 22:30 06/12/17 10:08 Symbicort 160/4.5mcg - IH 2 puff BID [facility] Administration Clopidogrel Bisulfate 75 mg 06/09/17 10:00 06/12/17 10:08 Plavix - PO 75 mg DAILY [facility] Administration Guaifenesin/Codeine Phosphate 5 ml 06/11/17 15:43 06/12/17 13:20 Robitussin Ac - PO 5 ml TID PRN Administration COUGH Heparin Sodium (Porcine) 5,000 unit 06/09/17 00:15 06/12/17 13:20 Heparin - SQ 5,000 unit TID [facility] Administration Azithromycin 500 mg/ Dextrose 250 mls @ 250 mls/hr 06/11/17 15:45 06/12/17 10 :08 IVPB 06/13/17 10:59 250 mls/hr DAILY [facility] Administration Insulin Aspart 1 vial 06/11/17 06:00 06/12/17 17:08 Novolog Vial Sliding Scale - SQ 10 units Q4HPO [facility] Administration Protocol Insulin Detemir 15 units 06/10/17 22:00 06/11/17 21:15 Levemir Vial SQ 15 units HS [facility] Administration Methylprednisolone Sodium Succinate 40 mg 06/11/17 22:00 06/12/17 13:20 Solu-Medrol - IVPUSH 40 mg Q8H [facility] Administration Metoprolol Succinate 25 mg 06/08/17 22:30 06/11/17 21:14 Toprol Xl - PO 25 mg HS [facility] Administration Nifedipine 60 mg 06/08/17 22:30 06/11/17 21:14 Procardia Xl - PO 60 mg HS [facility] Administration Ranitidine HCl 150 mg 06/09/17 10:00 06/12/17 10:08 Zantac - PO 150 mg DAILY [facility] Administration Senna 1 tab 06/09/17 22:00 06/11/17 21:14 Senna - PO 1 tab HS [facility] Administration Valsartan 80 mg 06/08/17 22:30 06/11/17 21:14 Diovan - PO 80 mg HS [facility] Administration Home Medications Medication Instructions Recorded Aspirin [ASA -] 81 mg PO DAILY #60 tab.chew 07/19/14 Albuterol 2.5/Ipratropium 0.5 1 neb IH QID PRN #50 vial.neb. 07/26/15 [Duoneb -] Albuterol Sulfate Inhaler - 2 inh IH Q4H #1 inh 07/26/15 [Ventolin HFA Inhaler -] Atorvastatin Ca [Lipitor] 40 mg PO HS #30 tablet 07/26/15 Budesonide/Formeterol Fumarate 2 inh IH BID #1 inhaler 07/26/15 [SYMBICORT 160/4.5mcg -] Ranitidine [Zantac -] 150 mg PO DAILY #30 tablet 07/26/15 Glipizide [Glucotrol -] 5 mg PO TIDAC #90 tablet 12/26/15 metFORMIN HCL [Glucophage -] 1,000 mg PO BID@0700,1630 #60 12/26/15 tablet Albuterol 0.083% Nebulizer Clare 1 neb NEB Q4H PRN 02/19/16 [Ventolin 0.083% Nebulizer Soln -] Clopidogrel Bisulfate [Plavix -] 75 mg PO DAILY #30 tablet 02/20/16 Metoprolol Succinate [Toprol XL -] 25 mg PO HS 02/20/16 Nifedipine ER [Procardia XL -] 60 mg PO HS 02/20/16 Valsartan [Diovan] 80 mg PO HS 02/20/16 Sennosides [Senna -] 1 tab PO HS tablet 05/21/16 Tiotropium [place] [Spiriva] 1 puff IH DAILY inh 05/21/16 Methylprednisolone Na Succ 60 mg IVPB Q8H-IV #1 vial 12/16/16 [Solu-Medrol -] Meloxicam 7.5 mg PO DAILY 06/08/17 ASSESSMENT/PLAN: 71 y/o M with PMH HTN, HLD, CAD (with 4 stents- two newest placed in Nov,Dec 2016), COPD, asthma (does not know baseline peak flow; not on home O2), s/p resection parotid neoplasm, who presents to the ED c/o SOB over the past week. Pt admitted to telemetry for acute COPD exacerbation. #Acute COPD exacerbation continue current regimen as per Pulm. so far all the cultures are negative, rsv antigen negative, urine antigen, influenza swab negative Pulm consult- Dr. Mclean, Maintain [id number] #QT prolongation QTC 472, Zithromax 500 mg IVPB one more dose today and will stop. #CAD (with 4 stents) continue Aspirin and Plavix #HTN- uncontrolled continue current meds #HLD Lipitor 40mg PO HS #DM ISS ACHS, BGM ACHS, Levemir 15 sq hs Visit type - Emergency Visit Emergency Visit: Yes ED Registration Date: 06/08/17 Care time: The patient presented to the Emergency Department on the above date and was hospitalized for further evaluation of their emergent condition. - New Patient This patient is new to me today: No - Critical Care Critical Care patient: No - Discharge Referral Referred to [facility] Med P.C.: No
[2017-06-12] MEDS: SENNOSIDES 8.6MG TABLET (FP) PO SCH (21:49)
[2017-06-12] MEDS: ATORVASTATIN CA 40 MG TABLET (FP) PO SCH (21:49)
[2017-06-12] MEDS: metoPROLOL SUCCINATE 25 MG TAB.SR.24H (FP) PO SCH (21:49)
[2017-06-12] MEDS: VALSARTAN 80 MG TABLET (UD) PO SCH (21:49)
[2017-06-12] MEDS: NIFEdipine E.R 60 MG TABLET (UD) PO SCH (21:49)
[2017-06-12] MEDS: INSULIN DETEMIR 100 UNITS/ML MDV SQ SCH (21:50)
[2017-06-12] MEDS ORDERED: PT OWN MED DRAWER 7, Y5N ONE (22:07)
[2017-06-13] MEDS: INSULIN SLIDING SCALE (NOVOLOG) 1 VIAL SQ SCH ×4 (01:53→14:13)
[2017-06-13] MEDS: methylPREDNISolone NA SUCC 40 MG/1 ML VIAL IVPUSH SCH (05:58)
[2017-06-13] MEDS: HEPARIN NA (PORCINE) 5,000 UNITS/ML 1ML VIAL SQ SCH ×2 (05:58→14:12)
[2017-06-13 07:08] LABS: HEMATOCRIT 37.6 % (35.4-49); HEMOGLOBIN 12.4 GM/dL (11.7-16.9); MCH 28.6 pg (25.7-33.7); MCHC 33.1 g/dl (32.0-35.9); MEAN CELL VOLUME 86.5 fl (80-96); MEAN PLT VOLUME 7.9 fl (7.5-11.1); PLATELET COUNT 271 K/MM3 (134-434); RBC 4.34 M/mm3 (4.00-5.60); RDW 15.2 % (11.9-15.9); WHITE BLOOD COUNT 12.7 K/mm3 (4.0-10.0)
[2017-06-13] MEDS: ALBUTEROL SO4 2.5/IPRATROPIUM 0.5 INH SOL 3 ML VIAL.NEB. NEB SCH (08:35)
[2017-06-13 08:52] LABS: ALBUMIN 3.5 g/dl (3.4-5.0); ALK PHOS 87 U/L (45-117); ANION GAP 10 (8-16); BILIRUBIN,TOTAL 0.9 mg/dL (0.2-1.0); BLOOD UREA NITROGEN 21 mg/dL (7-18); CALCIUM 8.4 mg/dL (8.5-10.1); CHLORIDE 97 mmol/L (98-107); CO2 25 mmol/L (21-32); CREATININE 0.9 mg/dL (0.7-1.3); GLUCOSE,RANDOM 293 mg/dL (74-106); MAGNESIUM 2.1 mg/dL (1.8-2.4); PHOSPHOROUS 4.1 mg/dL (2.5-4.9); POTASSIUM 4.4 mmol/L (3.5-5.1); SGOT/AST 15 U/L (15-37); SGPT/ALT 32 U/L (12-78); SODIUM 132 mmol/L (136-145)
[2017-06-13] MEDS ORDERED: PT OWN MED DRAWER 7, Y5N ONE (09:36)
[2017-06-13] MEDS ORDERED: INSULIN (NOVOLOG) ASPART 100 UNITS/ML 10ML VIAL ONE (09:41)
[2017-06-13] MEDS: BUDESONIDE/FORMETEROL FUMARATE 160/4.5 mcg INHALER IH SCH (09:45)
[2017-06-13] MEDS: RANITIDINE HCL 150 MG TABLET (FP) PO SCH (09:45)
[2017-06-13] MEDS: CLOPIDOGREL BISULFATE 75 MG TABLET (FP) PO SCH (09:45)
[2017-06-13] MEDS: ASPIRIN 81 MG CHEWABLE TABLETS PO SCH (09:45)
[2017-06-13] MEDS: AZITHROMYCIN IVPB 500 MG in DEXTROSE 5%-WATER - 250 ML IVPB SCH (09:45)
[2017-06-13] MEDS: guaiFENesin/CODEINE 5 ML UNIT-DOSE CUPS PO PRN (09:53)
[2017-06-13 11:12] LABS: ACANTHOCYTES 0; ANISOCYTOSIS 0; HELMET CELLS 0; HOWELL-JOLLY BODIES 0; MACROCYTOSIS 0; OVALOCYTE 0; PLATELET ESTIMATE NORMAL; ROULEAU 0; SICKELED CELLS 0; TARGET CELLS 0; TEAR DROP CELLS 0; TOXIC GRANULATION 0
[2017-06-13 11:27] VITALS: PULSE 84
--- NOTE | 2017-06-13 12:11 | PN ---
Progress Note, Physician History of Present Illness: pulmonary alert,feeling better sitting up in bed ,-resp distress - Current Medication List Current Medications: Active Medications Acetaminophen (Tylenol -) 650 mg PO Q4H PRN PRN Reason: HEADACHE Last Admin: 06/11/17 19:54 Dose: 650 mg Albuterol Sulfate (Ventolin 0.083% Nebulizer Soln -) 1 amp NEB Q4H PRN PRN Reason: ASTHMA Albuterol/Ipratropium (Duoneb -) 1 amp NEB RQID [facility] Last Admin: 06/12/17 20:00 Dose: 1 amp Aspirin (Asa -) 81 mg PO DAILY [facility] Last Admin: 06/13/17 09:45 Dose: 81 mg Atorvastatin Calcium (Lipitor -) 40 mg PO HS [facility] Last Admin: 06/12/17 21:49 Dose: 40 mg Budesonide/Formoterol Fumarate (Symbicort 160/4.5mcg -) 2 puff IH BID [facility] Last Admin: 06/13/17 09:45 Dose: 2 puff Clopidogrel Bisulfate (Plavix -) 75 mg PO DAILY [facility] Last Admin: 06/13/17 09:45 Dose: 75 mg Guaifenesin/Codeine Phosphate (Robitussin Ac -) 5 ml PO TID PRN PRN Reason: COUGH Last Admin: 06/13/17 09:53 Dose: 5 ml Heparin Sodium (Porcine) (Heparin -) 5,000 unit SQ TID [facility] Last Admin: 06/13/17 05:58 Dose: 5,000 unit Insulin Aspart (Novolog Vial Sliding Scale -) 1 vial SQ Q4HPO [facility] PRN Reason: Protocol Last Admin: 06/13/17 09:46 Dose: 10 units Insulin Detemir (Levemir Vial) 15 units SQ [facility] Last Admin: 06/12/17 21:50 Dose: 15 units Metoprolol Succinate (Toprol Xl -) 25 mg PO HS [facility] Last Admin: 06/12/17 21:49 Dose: 25 mg Nifedipine (Procardia Xl -) 60 mg PO HS [facility] Last Admin: 06/12/17 21:49 Dose: 60 mg Prednisone (Deltasone -) 40 mg PO ONCE ONE Stop: 06/13/17 14:01 Ranitidine HCl (Zantac -) 150 mg PO DAILY [facility] Last Admin: 06/13/17 09:45 Dose: 150 mg Senna (Senna -) 1 tab PO [facility] Last Admin: 06/12/17 21:49 Dose: 1 tab Valsartan (Diovan -) 80 mg PO [facility] Last Admin: 06/12/17 21:49 Dose: 80 mg - Objective Vital Signs: Vital Signs Temperature 98.2 F 06/13/17 10:00 Pulse Rate 84 06/13/17 10:00 Respiratory Rate 20 06/13/17 10:00 Blood Pressure 142/88 06/13/17 10:00 O2 Sat by Pulse Oximetry (%) 98 06/13/17 10:00 Constitutional: Yes: Well Nourished, Calm Eyes: Yes: WNL HENT: Yes: WNL Neck: Yes: WNL Cardiovascular: Yes: Regular Rate and Rhythm, S1, S2 Respiratory: Yes: Diminished Gastrointestinal: Yes: Normal Bowel Sounds, Soft Extremities: Yes: WNL Edema: No Labs: CBC, BMP 06/13/17 06:42 06/13/17 06:42 Assessment/Plan Problem List - Problems (1) COPD exacerbation Code(s): J44.1 - CHRONIC OBSTRUCTIVE PULMONARY DISEASE W (ACUTE) EXACERBATION (2) Coronary artery disease Code(s): I25.10 - ATHSCL HEART DISEASE OF [place] CORONARY ARTERY W/O ANG PCTRS Qualifiers: Coronary Disease-Associated Artery/Lesion type: [place] artery [place] vs. transplanted heart: [place] heart Associated angina: without angina Qualified Code(s): I25.10 - Atherosclerotic heart disease of [place] coronary artery without angina pectoris (3) Diabetes Code(s): E11.9 - TYPE 2 DIABETES MELLITUS WITHOUT COMPLICATIONS Qualifiers: Diabetes mellitus type: type 2 Diabetes mellitus fpc insulin use: without fpc use Diabetes mellitus complication status: without complication Qualified Code(s): E11.9 - Type 2 diabetes mellitus without complications (4) Hyperlipidemia Code(s): E78.5 - HYPERLIPIDEMIA, UNSPECIFIED Qualifiers: Hyperlipidemia type: pure hypercholesterolemia (5) Hypertension Code(s): I10 - ESSENTIAL (PRIMARY) HYPERTENSION Qualifiers: Hypertension type: essential hypertension Qualified Code(s): I10 - Essential (primary) hypertension Assessment/Plan Acute COPD Exacerbation CAD HTN DM Hyperlipidemia Smoker - prednisone with slow taper - inhaled bronchodilators standing and PRN - O2 to keep SpO2 >90% - DVT prophylaxis - will need to set up outpt f/u with 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
--- NOTE | 2017-06-13 13:48 | DS ---
Physical Exam: Microbiology 06/09/17 Unknown Urine For Antigen Detection Legionella Antigen - Final 06/09/17 Unknown Urine For Antigen Detection Streptococcus pneumoniae Antigen (M - Final 06/09/17 Unknown Nasopharyngeal Swab Respiratory Syncytial Virus Ag - Final 06/09/17 22:29 Sputum - Expectorated Gram Stain - Final 06/09/17 22:29 Sputum - Expectorated Sputum Culture - Final NORMAL RESPIRATORY ANA LAURA 06/09/17 18:30 Nasopharyngeal Swab Influenza Types A,B Antigen (KAYDEN) - Final 06/09/17 18:30 Nasopharyngeal Swab - Final Selected Entries 06/13/17 06/13/17 10:00 14:00 Temperature 98.5 F Pulse Rate 84 Respiratory 20 Rate Blood Pressure 133/82 O2 Sat by Pulse 98 Oximetry (%) Oxygen Flow 3 Rate Laboratory Tests 06/09/17 06/13/17 06/13/17 01:12 06:42 06:42 WBC 12.7 H Hgb 12.4 Hct 37.6 Plt Count 271 ABG pH 7.39 ABG pCO2 at Pt Temp 37.5 ABG pO2 at Pt Temp 94.5 D ABG HCO3 22.0 Sodium 132 L Potassium 4.4 Chloride 97 L Carbon Dioxide 25 Anion Gap 10 BUN 21 H Creatinine 0.9 Random Glucose 293 H Calcium 8.4 L CXR- no acute infiltrate HOSPITAL COURSE: Date of Admission:06/08/17 Date of Discharge: 06/13/17 71 y/o M with PMH HTN, HLD, CAD (with 4 stents- two newest placed in Nov,Dec 2016), COPD, asthma (does not know baseline peak flow; not on home O2), s/p resection parotid neoplasm, who presents to the ED c/o SOB over the past week. Pt admitted to telemetry for acute COPD exacerbation. Patient treated with symbicort, spiriva, and solumederol 60 q8h. Patient improved clinically. He will be d/c on a 12 day prednisone taper (40 mg x 3 days, 30 mg x 3 days, 20 mg x 3 days, and 10 mg x 3 days). 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 will discharge the patient home. <Jen Marvin - Last Filed: 06/13/17 19:45> Discharge Summary Reason For Visit: CHRONIC OBSTRUCTIVE PULMONARY DISEASE Current Active Problems COPD exacerbation (Acute) Coronary artery disease (Chronic) Diabetes (Chronic) Hyperlipidemia (Chronic) Hypertension (Chronic) - Home Medications Comprehensive Discharge Medication List: Ambulatory Orders Aspirin [ASA -] 81 mg PO DAILY #60 tab.chew 07/19/14 Albuterol 2.5/Ipratropium 0.5 [Duoneb -] 1 neb IH QID PRN #50 vial.neb. Albuterol Sulfate Inhaler - [Ventolin HFA Inhaler -] 2 inh IH Q4H #1 inh Atorvastatin Ca [Lipitor] 40 mg PO HS #30 tablet 07/26/15 Budesonide/Formeterol Fumarate [SYMBICORT 160/4.5mcg -] 2 inh IH BID #1 inhaler 07/26/15 Ranitidine [Zantac -] 150 mg PO DAILY #30 tablet 07/26/15 Glipizide [Glucotrol -] 5 mg PO TIDAC #90 tablet 12/26/15 metFORMIN HCL [Glucophage -] 1,000 mg PO BID@0700,1630 #60 tablet 12/26/15 Albuterol 0.083% Nebulizer [place] [Ventolin 0.083% Nebulizer Soln -] 1 neb NEB Q4H PRN 02/19/16 Clopidogrel Bisulfate [Plavix -] 75 mg PO DAILY #30 tablet 02/20/16 Metoprolol Succinate [Toprol XL -] 25 mg PO HS 02/20/16 Nifedipine ER [Procardia XL -] 60 mg PO HS 02/20/16 Valsartan [Diovan] 80 mg PO HS 02/20/16 Sennosides [Senna -] 1 tab PO HS tablet 05/21/16 Tiotropium [place] [Spiriva] 1 puff IH DAILY inh 05/21/16 Methylprednisolone Na Succ [Solu-Medrol -] 60 mg IVPB Q8H-IV #1 vial 12/16/16 Meloxicam 7.5 mg PO DAILY 06/08/17 Prednisone See Taper PO DAILY #30 tablet 06/13/17 <Jaguar Bella - Last Filed: 06/13/17 16:39> - Home Medications Comprehensive Discharge Medication List: Ambulatory Orders Aspirin [ASA -] 81 mg PO DAILY #60 tab.chew 07/19/14 Albuterol 2.5/Ipratropium 0.5 [Duoneb -] 1 neb IH QID PRN #50 vial.neb. Albuterol Sulfate Inhaler - [Ventolin HFA Inhaler -] 2 inh IH Q4H #1 inh Atorvastatin Ca [Lipitor] 40 mg PO HS #30 tablet 07/26/15 Budesonide/Formeterol Fumarate [SYMBICORT 160/4.5mcg -] 2 inh IH BID #1 inhaler 07/26/15 Ranitidine [Zantac -] 150 mg PO DAILY #30 tablet 07/26/15 Glipizide [Glucotrol -] 5 mg PO TIDAC #90 tablet 12/26/15 metFORMIN HCL [Glucophage -] 1,000 mg PO BID@0700,1630 #60 tablet 12/26/15 Albuterol 0.083% Nebulizer Clare [Ventolin 0.083% Nebulizer Soln -] 1 neb NEB Q4H PRN 02/19/16 Clopidogrel Bisulfate [Plavix -] 75 mg PO DAILY #30 tablet 02/20/16 Metoprolol Succinate [Toprol XL -] 25 mg PO HS 02/20/16 Nifedipine ER [Procardia XL -] 60 mg PO HS 02/20/16 Valsartan [Diovan] 80 mg PO HS 02/20/16 Sennosides [Senna -] 1 tab PO HS tablet 05/21/16 Tiotropium [place] [Spiriva] 1 puff IH DAILY inh 05/21/16 Methylprednisolone Na Succ [Solu-Medrol -] 60 mg IVPB Q8H-IV #1 vial 12/16/16 Meloxicam 7.5 mg PO DAILY 06/08/17 Prednisone See Taper PO DAILY #30 tablet 06/13/17 <Jen Marvin - Last Filed: 06/13/17 19:45> Condition: Stable - Instructions Diet, Activity, Other Instructions: You were in the hospital for an acute exacerbation of your COPD. Please take prednisone in the following taper -40 MG DAILY FOR 3 DAYS (4 TABLETS) -30 MG DAILY FOR 3 DAYS (3 TABLETS) -20 MG DAILY FOR 3 DAYS (2 TABLETS) -10 MG DAILY FOR 3 DAYS (1 TABLET) -STOP Continue your other home medications. Please follow up with your new PCP (Dr. Choi) within 1 week. Please follow up with Dr. Mclean within 1 week. if you have chest pain, shortness of breath, or any new/worsening symptoms please come back to the hospital immediately. Referrals: José Miguel Heller MD [Staff Physician] - 1 Week (FOLLOW UP WITH DR. CHOI) Kwasi Mclean MD [Staff Physician] - Alex Monteiro MD [Staff Physician] - Disposition: HOME This patient is new to me today: No Emergency Visit: Yes ED Registration Date: 06/08/17 Care time: The patient presented to the Emergency Department on the above date and was hospitalized for further evaluation of their emergent condition. Critical Care patient: No - Discharge Referral Referred to [facility] Med P.C.: No <Jaguar Bella - Last Filed: 06/13/17 16:39>
[2017-06-13] MEDS ORDERED: predniSONE 20 MG TABLET (UD) PO ONE (14:00)
[2017-06-13 14:38] VITALS: BP 133/82; TEMP 98.5
== END 2017-06-13 15:50 | disposition home or self-care (01) | DRG 191 ==
LOC: JER 19:06 → JERBED 21:39 → J4S 06-09 13:29
PROVIDERS: ADMIT Internal Medicine; ATTEND Internal Medicine
DX: J44.1 Chronic obstructive pulmonary disease with (acute) exacerbation (principal); E87.1 Hypo-osmolality and hyponatremia; I25.10 Atherosclerotic heart disease of native coronary artery without angina pectoris; E78.5 Hyperlipidemia, unspecified; I10 Essential (primary) hypertension; E11.9 Type 2 diabetes mellitus without complications; I45.81 Long QT syndrome; M10.9 Gout, unspecified; K59.00 Constipation, unspecified; M19.90 Unspecified osteoarthritis, unspecified site; Z95.5 Presence of coronary angioplasty implant and graft; Z87.891 Personal history of nicotine dependence
CPT/HCPCS: 36415; 36600; 71045-TC-FY; 80048; 80053; 82550; 82553; 82803; 82962; 83735; 83880; 84100; 84484; 85025; 87070; 87205; 87420; 87804; 87899; 93005; 93010; 94640; 97116-GP; 97161-GP; 99283-25; J1644

== ENCOUNTER 2018-04-06 08:24 | Emergency (ER) | payer OTHER ==
[2018-04-06 08:32] VITALS: BP 0/0; PULSE 0; BMI 34.9
[2018-04-06] MEDS ORDERED: EPINEPHrine 1:10,000 (P-F SYR) 1 MG/10 ML DISP.SYRIN ONE (08:43)
--- NOTE | 2018-04-06 10:31 | PDOC ---
History of Present Illness <Benoit Aj - Last Filed: 04/06/18 11:23> - History of Present Illness Initial Comments: 04/06/18 10:31 The patient is a 72 year old male, with a significant PMH of hypertension, hyperlipidemia, COPD, coronary artery disease s/p multiple stents (seen at [facility] in June 2017 and recommended cardiac bypass but patient refused), diabetes mellitus, who presents to the emergency department via EMS in cardiac arrest. As per patients girlfriend, they were at the [facility] nearby eating a meal when the patient suddenly made two loud audible noises before becoming unresponsive and closing his eyes. She states hotel staff was alerted and notified EMS which arrived 20 minutes later. She reports no CPR was performed during that time. Upon EMS arrival, the patient was noted to be in asystole and was intubated with a 7.0 endotracheal tube, 27cm at the lip. EMS states the patient was then noted to be in ventricular fibrillation rhythm once followed by ventricular tachycardia. EMS states the patient was shocked four times and given amiodarone 300 via IV push and brought to the ED. Per EMS a bottle of Viagra was found in the room. EMS states downtime prior to arrival was 52 minutes. Allergies: oxycodone Past surgical history: 1961-glass shard in abdomen removed and had abdomen infection afterward. Social History: No alcohol, tobacco or drug use reported PCP: Dr Rosado <Liz Hernandez - Last Filed: 04/06/18 11:58> - General Chief Complaint: Cardiac Arrest Stated Complaint: CARDIAC ARREST Time Seen by Provider: 04/06/18 08:48 Past History <Benoit Aj - Last Filed: 04/06/18 11:23> - Past Medical History Anemia: No Asthma: Yes Cancer: No Cardiac Disorders: Yes (cardiac 2 stents) CVA: No COPD: Yes CHF: No DVT: No Dementia: No Diabetes: Yes GI Disorders: No Disorders: No HTN: Yes Hypercholesterolemia: Yes Liver Disease: No Seizures: No Thyroid Disease: No - Surgical History Abdominal Surgery: Yes (1961-glass shard in abd removed and had abd infection afterward) Appendectomy: No Cardiac Surgery: Yes (CARDIAC STENTS 04/2010) Cholecystectomy: No Lung Surgery: No Neurologic Surgery: No Orthopedic Surgery: No - Immunization History Immunization Up to Date: Yes - Suicide/Smoking/Psychosocial Hx Smoking Status: No Smoking History: Unknown if ever smoked Years of Tobacco Use: 35 Have you smoked in the past 12 months: No Number of Cigarettes Smoked Daily: 0 If you are a former smoker, when did you quit?: 1 yr ago Cigars Per Day: 0 'Breaking Loose' booklet given: 12/10/16 Hx Alcohol Use: No Drug/Substance Use Hx: No Substance Use Type: None Hx Substance Use Treatment: No <Liz Hernandez - Last Filed: 04/06/18 11:58> - Past Medical History Allergies/Adverse Reactions: Allergies Allergy/AdvReac Type Severity Reaction Status Date / Time oxycodone Allergy Intermediate Verified 06/10/17 18:13 Home Medications: Ambulatory Orders Aspirin [ASA -] 81 mg PO DAILY #60 tab.chew 07/19/14 Albuterol 2.5/Ipratropium 0.5 [Duoneb -] 1 neb IH QID PRN #50 vial.neb. Albuterol Sulfate Inhaler - [Ventolin HFA Inhaler -] 2 inh IH Q4H #1 inh Atorvastatin Ca [Lipitor] 40 mg PO HS #30 tablet 07/26/15 Budesonide/Formeterol Fumarate [SYMBICORT 160/4.5mcg -] 2 inh IH BID #1 inhaler 07/26/15 Ranitidine [Zantac -] 150 mg PO DAILY #30 tablet 07/26/15 Glipizide [Glucotrol -] 5 mg PO TIDAC #90 tablet 12/26/15 metFORMIN HCL [Glucophage -] 1,000 mg PO BID@0700,1630 #60 tablet 12/26/15 Albuterol 0.083% Nebulizer Clare [Ventolin 0.083% Nebulizer Soln -] 1 neb NEB Q4H PRN 02/19/16 Clopidogrel Bisulfate [Plavix -] 75 mg PO DAILY #30 tablet 02/20/16 Metoprolol Succinate [Toprol XL -] 25 mg PO HS 02/20/16 Nifedipine ER [Procardia XL -] 60 mg PO HS 02/20/16 Valsartan [Diovan] 80 mg PO HS 02/20/16 Sennosides [Senna -] 1 tab PO HS tablet 05/21/16 Tiotropium [place] [Spiriva] 1 puff IH DAILY inh 05/21/16 Methylprednisolone Na Succ [Solu-Medrol -] 60 mg IVPB Q8H-IV #1 vial 12/16/16 Meloxicam 7.5 mg PO DAILY 06/08/17 Prednisone See Taper PO DAILY #30 tablet 06/13/17 Review of Systems - Review of Systems Comments:: 04/06/18 10:49 unable to obtain <Liz Hernandez - Last Filed: 04/06/18 11:58> *Physical Exam - Vital Signs Last Vital Signs Temp Pulse Resp BP Pulse Ox 0 L 0/0 L 04/06/18 08:24 04/06/18 08:24 <Benoit Aj - Last Filed: 04/06/18 11:23> - Vital Signs Last Vital Signs Temp Pulse Resp BP Pulse Ox 0 L 0/0 L 04/06/18 08:24 04/06/18 08:24 - Physical Exam Comments: 04/06/18 11:01 GENERAL:unresponsive, pale HEAD: No signs of trauma EYES: fixed and dilated ENT: Intubated, tube confirmed with good placement with glidescope. LUNGS: +b/l breath sounds with bagginf HEART: No audible heart sounds. Steffen in place ABDOMEN: Soft, nondistentded EXTREMITIES: pale, cool. No deformities NEUROLOGICAL: unresponsive SKIN: Warm, Dry, normal turgor, no rashes or lesions noted. <Liz Hernandez - Last Filed: 04/06/18 11:58> Moderate Sedation - Procedure Monitoring Vital Signs: Procedure Monitoring Vital Signs Temperature Pulse Rate 0 L 04/06/18 08:24 Respiratory Rate Blood Pressure 0/0 L 04/06/18 08:24 O2 Sat by Pulse Oximetry (%) <Benoit Aj - Last Filed: 04/06/18 11:23> - Procedure Monitoring Vital Signs: Procedure Monitoring Vital Signs Temperature Pulse Rate 0 L 04/06/18 08:24 Respiratory Rate Blood Pressure 0/0 L 04/06/18 08:24 O2 Sat by Pulse Oximetry (%) <Liz Hernandez - Last Filed: 04/06/18 11:58> Medical Decision Making - Critical Care Time Total Critical Care Time (minutes): 60 Critical Care Statement: The care of this patient involved high complexity decision making to prevent further life threatening deterioration of the patient 's condition and/or to evaluate & treat vital organ system(s) failure or risk of failure. - Medical Decision Making 04/06/18 09:03 72yo M hx CAD s/p stents, refused CABG in the past, COPD, HTN, HL presents to the ED in cardiac arrest. Viagra at bedside, but pt does not take any nitro 52 minutes downtime [employer] 20 mins w/o CPR prior to EMS arrival Continued CPR on arrival Rhythm asystole throughout, no shockable rhythms Continued epi, also gave bicarb, magnesium, dextrose Bedside sono with cardiac standstill Pt's girlfriend at the bedside Given prolonged downtime, asystole, TOD was called at [id number] Case discussed with Jose from [place], will not be an [facility] case. Case #[id number] Daughter arrived in ED, informed of pt's Called Dr. Rosado, informed him. He will sign the certificate. <Liz Hernandez - Last Filed: 04/06/18 11:58> *DC/Admit/Observation/Transfer - Attestations Scribe Attestion: 04/06/18 11:24 Documentation prepared by Benoit Aj, acting as medical assistant supervisor for Liz Hernandez MD. <Benoit Aj - Last Filed: 04/06/18 11:23> - Attestations Physician Attestion: 04/06/18 11:58 I, Dr. Liz Hernandez MD, attest that this document has been prepared under my direction and personally reviewed by me in its entirety. I further attest, that it accurately reflects all work, treatment, procedures and medical decision -making performed by sc. <Liz Hernandez - Last Filed: 04/06/18 11:58> Diagnosis at time of Disposition: Cardiac arrest - Discharge Dispostion Disposition: Condition at time of disposition: - Referrals Referrals: Evangelist Rosado MD [Primary Care Provider] - - Patient Instructions - Post Discharge Activity
== END 2018-04-06 10:30 | disposition expired ==
LOC: JER 08:24
PROC: 5A12012 Performance of Cardiac Output, Single, Manual (ICD-10-PCS; principal; 2018-04-06)
PROC: B246ZZZ Ultrasonography of Right and Left Heart (ICD-10-PCS; 2018-04-06)
DX: I46.9 Cardiac arrest, cause unspecified (principal); I25.10 Atherosclerotic heart disease of native coronary artery without angina pectoris; I10 Essential (primary) hypertension; Z95.5 Presence of coronary angioplasty implant and graft; E11.9 Type 2 diabetes mellitus without complications; Z79.84 Long term (current) use of oral hypoglycemic drugs; E78.00 Pure hypercholesterolemia, unspecified; J44.9 Chronic obstructive pulmonary disease, unspecified; J45.909 Unspecified asthma, uncomplicated; Z88.8 Allergy status to other drugs, medicaments and biological substances
CPT/HCPCS: 99283-25